=== PATIENT | female | born 1945 | race Caucasian/White ===

== ENCOUNTER → 2016-05-11 | Outpatient (CLI) | payer MEDICARE ==
[2016-05-11 09:33] LABS: Basophils # (A) 0.1 k/uL (0-0.2); Basophils % (A) 1 %; CH 32.8; CHCM 33.8; Eosinophils # (A) 0.1 k/uL (0-0.7); Eosinophils % (A) 2 %; HCT 44.3 % (34.0-46.0); HDW 2.44; HGB 14.6 gm/dL (11.4-16.0); Luc # (Auto) 0.15; Luc % (Auto) 2; Lymphocytes # (A) 1.4 k/uL (1.0-4.8); Lymphocytes % (A) 19 %; MCH 32.1 pg (25.0-35.0); MCHC 32.9 g/dL (31.0-37.0); MCV 97.6 fL (80.0-100.0); Mean Platelet Volume 6.2; Monocytes # (A) 0.4 k/uL (0-1.0); Monocytes % (A) 5 %; Neutrophils # (A) 5.3 k/uL (1.3-7.7); Neutrophils % (A) 72 %; RBC 4.53 m/uL (3.80-5.40); WBC 7.4 k/uL (3.8-10.6); WBC (Perox) 7.27
[2016-05-11 10:02] LABS: ALT 40 U/L (9-52); AST 26 U/L (14-36); Alkaline Phosphatase 41 U/L (38-126); Anion Gap 10 mmol/L; Blood Urea Nitrogen 7 mg/dL (7-17); Calcium 9.7 mg/dL (8.4-10.2); Carbon Dioxide 29 mmol/L (22-30); Chloride 104 mmol/L (98-107); Cholesterol 175 mg/dL (<200); Glucose 105 mg/dL (74-99); HDL Cholesterol 60 mg/dL (40-60); Magnesium 2.1 mg/dL (1.6-2.3); Non-African American GFR(MDRD) >60 (>60 ml/min/1.73 sqM); Potassium 4.6 mmol/L (3.5-5.1); Sodium 143 mmol/L (137-145); Total Bilirubin 0.6 mg/dL (0.2-1.3); Total Protein 7.3 g/dL (6.3-8.2); Triglycerides 132 mg/dL (<150)
--- NOTE | 2016-05-12 10:08 | BD ---
EXAMINATION TYPE: MG DEXA axial skeleton. DATE OF EXAM: 05/11/2016 9:40 AM CLINICAL HISTORY: Height: 64.5 inches Weight: 157 FRAX RISK QUESTIONS: Alcohol (3 or more units per day): no Family History (Parent hip fracture): no Glucocorticoids (More than 3mos): no (Ex: prednisone, prednisolone, methylprednisolone, dexamethasone, and hydrocortisone). History of Fracture in Adulthood: no Secondary Osteoporosis: 1. Type 1 Diabetes: no 2. Hyperthyroidism: no 3. Menopause before 45: no 4. Malnutrition: no 5. Chronic liver disease: no Rheumatoid Arthritis: no Current Tobacco Use: yes RISK FACTORS HISTORY OF: History of Fracture: no Family History of Osteoporosis: no Drink Alcohol: occasionally,socially Active: yes Diet low in dairy products/other sources of calcium: no Postmenopausal woman: yes Take estrogen and/or progesterone medications: not now How long: started about age 49 & used for about 9 years Lost more than 2 inches in height since high school: no Poor Health: no Hyperparathyroidism: no Adrenal Insufficiency: no MEDICATIONS: Prednisone or other steroids: no Thyroid Medications: no Osteoporosis Medications: no Additional Medications: cholesterol meds , calcium Additional History: Breast CA 2004, radiation, took Arimedex for about five years EXAM MEASUREMENTS: Bone mineral densitometry was performed using the [employer] System. Bone mineral density as measured about the Lumbar spine is: ----- L1-L4(G/cm2): 1.422 T Score Values are as follows: ----- L2: 2.3 ----- L3: 2.3 ----- L4: 2.3 ----- L1-L4: 2.0 Bone mineral density has: Decreased -1.1% since study of: 04/12/2013 Bone mineral density about the R hip (g/cm2): 1.032 Bone mineral density about the L hip (g/cm2): 1.009 T Score values are as follows: -----R Neck: 0.0 -----L Neck: -0.2 -----R Intertrochanter: 0.5 -----L Intertrochanter: 0.4 Bone mineral density has: Decreased -4.0% since study of: 04/12/2013 IMPRESSION: Normal (Values between +1 and -1 indicate normal bone mass) Lumbar Spine & Bilateral Hips NOTE: T-SCORE=SD OF THE YOUNG ADULT MEAN.
== END | disposition home or self-care (01) ==
LOC: RADBDWWP 08:46
PROVIDERS: ATTEND Family Medicine
DX: Z00.00 Encounter for general adult medical examination without abnormal findings (principal); F32.9 Major depressive disorder, single episode, unspecified; K76.0 Fatty (change of) liver, not elsewhere classified; K21.9 Gastro-esophageal reflux disease without esophagitis; E78.5 Hyperlipidemia, unspecified; E78.00 Pure hypercholesterolemia, unspecified; I10 Essential (primary) hypertension; Z79.899 Other long term (current) drug therapy
CPT/HCPCS: 36415; 77080; 80053; 80061; 83735; 84443; 85025

== ENCOUNTER → 2017-05-29 | Outpatient (CLI) | payer MEDICARE ==
--- NOTE | 2017-05-31 07:27 | MM ---
Reason for exam: screening (asymptomatic). Last mammogram was performed 1 year and 1 month ago. History: Patient is postmenopausal and has history of breast cancer at age 59. Family history of breast cancer in maternal aunt at age 50. Left Mammotome Panel of the left breast, March 18, 2005. Lumpectomy of the left breast, 2004. Radiation therapy, 2004. Took estrogen for 9 years 4 months beginning at age 49. Took tamoxifen for 5 years 1 month beginning at age 59. Physical Findings: A clinical breast exam by your physician is recommended on an annual basis and results should be correlated with mammographic findings. MG 3D Screening Mammo W/Cad Bilateral CC and MLO view(s) were taken. XCCL view(s) were taken of the left breast. Prior study comparison: April 15, 2016, bilateral MG 3d diag mammo wo cad [facility]. April 01, 2015, bilateral MG 3d diag mammo w/cad [facility]. March 13, 2014, bilateral MG diagnostic mammo w CAD [facility]. The breast tissue is heterogeneously dense. This may lower the sensitivity of mammography. No suspicious abnormality. Post therapy changes on the left. No significant changes when compared with prior studies. ASSESSMENT: Benign, BI-RAD 2 RECOMMENDATION: Follow-up diagnostic mammogram of both breasts in 1 year.
== END | disposition home or self-care (01) ==
LOC: RADMAMWWP 12:33
PROVIDERS: ATTEND Obstetrics & Gynecology
DX: Z12.31 Encounter for screening mammogram for malignant neoplasm of breast (principal)
CPT/HCPCS: 77063; 77067

== ENCOUNTER → 2018-05-09 | Outpatient (CLI) | payer MEDICARE ==
--- NOTE | 2018-05-09 15:41 | CTL ---
EXAMINATION TYPE: CT Low Dose Lung DATE OF EXAM ORDERED: 05/09/2018 HISTORY: Personal history of tobacco abuse. Lung cancer screening. History of breast cancer. CT DLP: 82.[address] CTDI: 2.3 mGy Automated exposure control for dose reduction was used. SCREENING VISIT: Subsequent, third visit. COMPARISON: 04/22/2017 TECHNIQUE: Low dose computed tomography scan was performed through the chest at 1 mm thick sections a nd reconstructed images in the coronal plane at [address] DIAGNOSTIC QUALITY: Satisfactory FINDINGS: LUNG NODULES: Present, detailed below: There is redemonstration of a right apical 4 x 2 mm solid pulmonary nodule on image 31, unchanged fro m the prior. There is a stable 4 x 2 mm right upper lobe pulmonary nodule that is solid in nature on series 4 imag e 119. Just caudal to this on image 127 there is a 3 x 3 mm pulmonary nodule that appears more conspicuous o n today's examination on the prior. This is also solid in nature. There is a 2 mm posterior right apical pulmonary nodule that is solid in nature on image 88 that does not appear to be present on the prior exam. There is a 2 mm left apical solid pulmonary nodule on image 45 that is very subtly visualized on the prior and unchanged. There is a 3 x 2 mm pulmonary nodule on image 114 within the left upper lobe that is retrospectively unchanged from the prior. 1 to 2 mm subpleural left lower lobe pulmonary nodule is solid in nature seen on image 186. This is n ot well appreciated on the prior. LUNGS: COPD: Severity: Moderate Fibrosis: Severity: Similar-appearing minimal right apical Lymph nodes: No enlarged adenopathy Other findings: Redemonstration of subsegmental dependent bibasilar atelectasis. RIGHT PLEURAL SPACE: Effusion: None Calcification: None Thickening: None Pneumothorax: None LEFT PLEURAL SPACE: Effusion: None Calcification: None Thickening: None Pneumothorax: None HEART: Heart Size: Normal Coronary calcification: Mild to moderate Pericardial effusion: None Other: Descending thoracic aorta is upper limits of normal in size measuring 3 x 3 cm. OTHER FINDINGS: Upper abdomen: Small splenule is incidentally noted. Unremarkable unenhanced morphology. Right hemidi aphragm elevation is mild and unchanged. Bony thorax: Moderate multilevel degenerative change of the thoracic spine. Supraclavicular region: No suspicious adenopathy. IMPRESSION: Bilateral sub-5 mm pulmonary nodules, some of which appears stable from the prior exams a nd few of which appear new. Again these correspond to LUNG RADS 2. Annual low dose CT thorax is recom mended for surveillance. FOLLOW UP CT CHEST RECOMMENDATION: [address] LUNG RAD: Lung-Rad 2 Benign Appearance or Behavior
== END ==
LOC: RADCTMAIN 12:12
PROVIDERS: ATTEND Family Medicine
DX: Z12.2 Encounter for screening for malignant neoplasm of respiratory organs (principal); Z87.891 Personal history of nicotine dependence

== ENCOUNTER → 2018-07-09 | Outpatient (CLI) | payer MEDICARE ==
--- NOTE | 2018-07-09 13:38 | MM ---
Reason for exam: additional evaluation requested from prior study. Last mammogram was performed 1 year and 1 month ago. History: Patient is postmenopausal and has history of breast cancer at age 59. Family history of breast cancer in maternal aunt at age 50. Left Mammotome Panel of the left breast, March 18, 2005. Lumpectomy of the left breast, 2004. Radiation therapy, 2004. Took estrogen for 9 years 4 months beginning at age 49. Took tamoxifen for 5 years 1 month beginning at age 59. Physical Findings: Nurse did not find any significant physical abnormalities on exam. MG 3D Diag Mammo W/Cad [facility] Bilateral CC and MLO view(s) were taken. Prior study comparison: May 29, 2017, bilateral MG 3d screening mammo w/cad. April 15, 2016, bilateral MG 3d diag mammo wo cad [facility]. The breast tissue is heterogeneously dense. This may lower the sensitivity of mammography. Benign appearing bilateral calcifications. No suspicious abnormality. Post therapy change. No significant new findings when compared with previous films. These results were verbally communicated with the patient and result sheet given to the patient on 07/09/18. ASSESSMENT: Benign, BI-RAD 2 RECOMMENDATION: Routine screening mammogram of both breasts in 1 year.
--- NOTE | 2018-07-09 14:47 | BD ---
EXAMINATION TYPE: Axial Bone Density DATE OF EXAM: 07/09/2018 COMPARISON: 2017 CLINICAL HISTORY: Personal history of breast cancer. Osteoporosis screening. Height: 5 FT 4 IN Weight: 145 FRAX RISK QUESTIONS: Secondary Osteoporosis: Current Tobacco Use: YES RISK FACTORS HISTORY OF: Surgery to Spine/Hip(right/left)/Wrist (right/left): LT WRIST When: UNSURE 2004 Active: YES Postmenopausal woman: AFTER 45 Take estrogen and/or progesterone medications: UNSURE OF HOW LONG BUT DID USE THEM MEDICATIONS: Additional Medications: GABAPENTIN , Additional History: POOR HISTORIAN EXAM MEASUREMENTS: Bone mineral densitometry was performed using the [employer] System. Bone mineral density as measured about the Lumbar spine is: ----- L1-L4(G/cm2): 1.442 T Score Values are as follows: ----- L2: 2.2 ----- L3: 2.6 ----- L4: 2.6 ----- L1-L4: 2.2 Bone mineral density has: INCREASED 1.4 % since study of: 2017 Bone mineral density about the R hip (g/cm2): 1.017 Bone mineral density about the L hip (g/cm2): 1.014 T Score values are as follows: -----R Neck: -0.2 -----L Neck: -0.2 -----R Total: 0.1 -----L Total: 0.0 Bone mineral density has: DECREASED -3.7 % since study of: 2017 IMPRESSION: Normal (Values between +1 and -1 indicate normal bone mass). Consider repeating this study in 5 year s or sooner if there is some new clinical indication. NOTE: T-SCORE=SD OF THE YOUNG ADULT MEAN.
== END | disposition home or self-care (01) ==
LOC: RADMAMWWP 12:23
PROVIDERS: ATTEND Family Medicine
DX: Z08 Encounter for follow-up examination after completed treatment for malignant neoplasm (principal); M85.80 Other specified disorders of bone density and structure, unspecified site; Z85.3 Personal history of malignant neoplasm of breast
CPT/HCPCS: 77080; 77066; G0279; 77062

== ENCOUNTER → 2019-12-18 | Outpatient (CLI) | payer MEDICARE ==
[2019-12-18 10:54] LABS: ALT 29 U/L (4-34); AST 35 U/L (14-36); African American GFR (CKD) >90 (>60 ml/min/1.73 sqM); Albumin 4.3 g/dL (3.5-5.0); Alkaline Phosphatase 36 U/L (38-126); Anion Gap 5 mmol/L; Bilirubin, Delta 0.2 mg/dL (0.0-0.2); Bilirubin,Unconjugated 0.4 mg/dL (0.0-1.1); Blood Urea Nitrogen 5 mg/dL (7-17); Calcium 9.3 mg/dL (8.4-10.2); Carbon Dioxide 28 mmol/L (22-30); Chloride 100 mmol/L (98-107); Cholesterol 144 mg/dL (<200); Glucose 99 mg/dL (74-99); Non-African American GFR(CKD) 90 (>60 ml/min/1.73 sqM); Potassium 4.5 mmol/L (3.5-5.1); Sodium 133 mmol/L (137-145); Total Bilirubin 0.6 mg/dL (0.2-1.3); Total Protein 6.6 g/dL (6.3-8.2); Triglycerides 60 mg/dL (<150)
[2019-12-18 11:10] LABS: T4, Free (Free Thyroxine) 1.04 ng/dL (0.78-2.19)
[2019-12-18 11:12] LABS: Basophils # (A) 0.1 k/uL (0-0.2); Basophils % (A) 1 %; Eosinophils # (A) 0.1 k/uL (0-0.7); Eosinophils % (A) 1 %; HCT 41.1 % (34.0-46.0); HGB 13.6 gm/dL (11.4-16.0); Lymphocytes % (A) 14 %; MCH 32.1 pg (25.0-35.0); MCHC 33.2 g/dL (31.0-37.0); MCV 96.8 fL (80.0-100.0); Mean Platelet Volume 6.8; Monocytes # (A) 0.3 k/uL (0-1.0); Monocytes % (A) 5 %; Neutrophils # (A) 5.7 k/uL (1.3-7.7); Neutrophils % (A) 79 %; Platelet Count 229 k/uL (150-450); RBC 4.24 m/uL (3.80-5.40); RDW 12.4 % (11.5-15.5); WBC 7.3 k/uL (3.8-10.6)
[2019-12-18 14:12] LABS: HDL Cholesterol 63 mg/dL (40-60); LDL Cholesterol,Calculated 69 mg/dL (0-99)
--- NOTE | 2019-12-19 12:21 | MM ---
Reason for exam: screening (asymptomatic). Last mammogram was performed 1 year and 5 months ago. History: Patient is postmenopausal and has history of breast cancer at age 59. Family history of breast cancer in maternal aunt at age 50. Left Mammotome Panel of the left breast, March 18, 2005. Lumpectomy of the left breast, 2004. Radiation therapy, 2004. Took estrogen for 9 years 4 months beginning at age 49. Took tamoxifen for 5 years 1 month beginning at age 59. Physical Findings: A clinical breast exam by your physician is recommended on an annual basis and results should be correlated with mammographic findings. MG 3D Screening Mammo W/Cad Bilateral CC and MLO view(s) were taken. Prior study comparison: July 09, 2018, bilateral MG 3d diag mammo w/cad [facility]. May 29, 2017, bilateral MG 3d screening mammo w/cad. The breast tissue is heterogeneously dense. This may lower the sensitivity of mammography. Benign appearing calcifications in the left breast. There is chronic nodularity in the right breast. Post operative change on the left, stable. ASSESSMENT: Benign, BI-RAD 2 RECOMMENDATION: Routine screening mammogram of both breasts in 1 year.
== END | disposition home or self-care (01) ==
LOC: RADMAMWWP 08:32
PROVIDERS: ATTEND Family Medicine
DX: Z12.31 Encounter for screening mammogram for malignant neoplasm of breast (principal); Z00.01 Encounter for general adult medical examination with abnormal findings; Z13.220 Encounter for screening for lipoid disorders; Z13.83 Encounter for screening for respiratory disorder NEC; J44.9 Chronic obstructive pulmonary disease, unspecified; F17.210 Nicotine dependence, cigarettes, uncomplicated
CPT/HCPCS: 77063; 77067; 80053; 80061; 82248; 84439; 84443; 85025

== ENCOUNTER 2021-06-08 16:31 | Inpatient (IN) | payer MEDICARE ==
[2021-06-08] MEDS ORDERED: MORPHINE SULFATE 4 MG/ML SYRINGE IV STA (18:42)
[2021-06-08] MEDS ORDERED: SODIUM CHLORIDE 0.9% 1,000 ML IV STA (18:42)
[2021-06-08] MEDS ORDERED: ONDANSETRON 4 MG/2 ML VIAL IVP STA ×2 (18:42→20:27)
[2021-06-08] MEDS ORDERED: FAMOTIDINE 20 MG/2 ML VIAL IV STA (18:42)
--- NOTE | 2021-06-08 18:44 | ED ---
General Adult HPI - General Chief complaint: Nausea/Vomiting/Diarrhea Stated complaint: Nausea/Vomiting Time Seen by Provider: 06/08/21 18:36 Source: patient, family, RN notes reviewed Mode of arrival: wheelchair Limitations: no limitations - History of Present Illness Initial comments: Patient is a pleasant 75-year-old female presenting to the emergency department with nausea vomiting. Onset of symptoms was for 5 days ago. Patient did have some teeth pulled. Patient is not having problems with her teeth. Patient does have some mild abdominal discomfort. Patient has had very limited oral intake since that time. Patient still feels nauseated. No diarrhea. Patient did have a visit with her doctor with x-rays. Patient also was seen at a different facility and given IV fluids. - Related Data Home Medications Medication Instructions Recorded Confirmed Cephalexin [Keflex] 500 mg PO Q12HR 06/08/21 06/08/21 Cetirizine HCl [Zyrtec] 10 mg PO DAILY 06/08/21 06/08/21 Gabapentin [Neurontin] 400 mg PO HS 06/08/21 06/08/21 HYDROcodone/IBUPROFEN 7.5-200 1 tab PO TID PRN 06/08/21 06/08/21 [Vicoprofen 7.5-200 mg] Pravastatin Sodium 80 mg PO DAILY 06/08/21 06/08/21 Prochlorperazine [Compazine] 5 mg PO TID PRN 06/08/21 06/08/21 Allergies Allergy/AdvReac Type Severity Reaction Status Date / Time Penicillins Allergy Unknown Verified 06/08/21 19:36 Review of Systems ROS Statement: Those systems with pertinent positive or pertinent negative responses have been documented in the HPI. ROS Other: All systems not noted in ROS Statement are negative. Constitutional: Denies: fever Eyes: Denies: eye pain ENT: Denies: ear pain Respiratory: Denies: cough, dyspnea Cardiovascular: Denies: chest pain Endocrine: Denies: fatigue Gastrointestinal: Reports: as per HPI, abdominal pain, nausea, vomiting Genitourinary: Denies: dysuria Musculoskeletal: Denies: back pain Skin: Denies: rash Neurological: Denies: weakness Past Medical History Past Medical History: No Reported History History of Any Multi-Drug Resistant Organisms: None Reported Past Surgical History: Breast Surgery Past Psychological History: No Psychological Hx Reported Smoking Status: Current every day smoker Past Alcohol Use History: Rare Past Drug Use History: None Reported General Exam Limitations: no limitations General appearance: alert, in no apparent distress Head exam: Present: normocephalic Eye exam: Present: normal appearance Neck exam: Present: normal inspection Respiratory exam: Present: normal lung sounds bilaterally Cardiovascular Exam: Present: regular rate, normal rhythm Expanded Peripheral pulses: 2+: Posterior Tibialis (R), Posterior Tibialis (L), Dorsalis Pedis (R), Dorsalis Pedis (L) GI/Abdominal exam: Present: soft, normal bowel sounds. Absent: distended, tenderness, guarding, rebound, rigid, pulsatile mass Extremities exam: Present: normal inspection. Absent: pedal edema, calf tenderness Neurological exam: Present: alert Psychiatric exam: Present: normal affect, normal mood Skin exam: Present: normal color Course Vital Signs 06/08/21 16:49 Temperature 97.9 F Pulse Rate 92 Respiratory 20 Rate Blood Pressure 156/91 O2 Sat by Pulse 96 Oximetry Medical Decision Making - Medical Decision Making Patient reevaluated and still complaining of abdominal discomfort and nausea. Further medications ordered. Case discussed with Dr. Asencio, who will admit his patient. He is familiar with her. Computed tomography scan has been ordered and is pending. Patient has indeterminate troponin. Cardiology will be consult at. - Lab Data Result diagrams: 06/08/21 19:36 06/08/21 19:36 Lab Results 06/08/21 06/08/21 06/08/21 Range/Units 19:36 19:36 19:36 WBC 7.1 (3.8-10.6) k/uL RBC 4.44 (3.80-5.40) m/uL Hgb 14.7 (11.4-16.0) gm/dL Hct 42.3 (34.0-46.0) % MCV 95.4 (80.0-100.0) fL MCH 33.0 (25.0-35.0) pg MCHC 34.6 (31.0-37.0) g/dL RDW 12.8 (11.5-15.5) % Plt Count 289 (150-450) k/uL MPV 6.8 Neutrophils % 81 % Lymphocytes % 9 % Monocytes % 8 % Eosinophils % 1 % Basophils % 0 % Neutrophils # 5.7 (1.3-7.7) k/uL Lymphocytes # 0.6 L (1.0-4.8) k/uL Monocytes # 0.6 (0-1.0) k/uL Eosinophils # 0.1 (0-0.7) k/uL Basophils # 0.0 (0-0.2) k/uL Sodium 128 L (137-145) mmol/L Potassium 3.6 (3.5-5.1) mmol/L Chloride 87 L (98-107) mmol/L Carbon Dioxide 30 (22-30) mmol/L Anion Gap 11 mmol/L BUN 24 H (7-17) mg/dL Creatinine 0.82 (0.52-1.04) mg/dL Est GFR (CKD-EPI)AfAm 81 (>60 ml/min/1.73 sqM) Est GFR (CKD-EPI)NonAf 70 (>60 ml/min/1.73 sqM) Glucose 96 (74-99) mg/dL Calcium 9.5 (8.4-10.2) mg/dL Total Bilirubin 0.9 (0.2-1.3) mg/dL AST 50 H (14-36) U/L ALT 27 (4-34) U/L Alkaline Phosphatase 44 (38-126) U/L Troponin I 0.097 H* (0.000-0.034) ng/mL Total Protein 6.8 (6.3-8.2) g/dL Albumin 3.9 (3.5-5.0) g/dL Amylase 52 (30-110) U/L Lipase 311 H (23-300) U/L Disposition Clinical Impression: Abdominal pain, Vomiting Disposition: ADMITTED IP TO THIS HOSP Is patient prescribed a controlled substance at d/c from ED?: No Referrals: Anson Sam MD [Primary Care Provider] - 1-2 days Decision Time: 20:36
[2021-06-08 20:06] LABS: INR 0.9 (<1.2); Partial Thromboplastin Time 23.9 sec (22.0-30.0); Prothrombin Time 9.8 sec (9.0-12.0)
[2021-06-08 20:07] LABS: Basophils % (A) 0 %; Eosinophils # (A) 0.1 k/uL (0-0.7); Eosinophils % (A) 1 %; HCT 42.3 % (34.0-46.0); HGB 14.7 gm/dL (11.4-16.0); Lymphocytes # (A) 0.6 k/uL (1.0-4.8); Lymphocytes % (A) 9 %; MCHC 34.6 g/dL (31.0-37.0); MCV 95.4 fL (80.0-100.0); Mean Platelet Volume 6.8; Monocytes # (A) 0.6 k/uL (0-1.0); Monocytes % (A) 8 %; Neutrophils # (A) 5.7 k/uL (1.3-7.7); Neutrophils % (A) 81 %; Platelet Count 289 k/uL (150-450); RBC 4.44 m/uL (3.80-5.40); RDW 12.8 % (11.5-15.5); WBC 7.1 k/uL (3.8-10.6)
[2021-06-08 20:16] LABS: Albumin 3.9 g/dL (3.5-5.0); Calcium 9.5 mg/dL (8.4-10.2); Potassium 3.6 mmol/L (3.5-5.1); Total Bilirubin 0.9 mg/dL (0.2-1.3); Total Protein 6.8 g/dL (6.3-8.2)
[2021-06-08] MEDS ORDERED: MORPHINE SULFATE 4 MG/ML SYRINGE IVP STA (20:27)
[2021-06-08] MEDS ORDERED: NALOXONE 0.4 MG/ML 1 ML VIAL IV PRN (20:36)
[2021-06-08] MEDS ORDERED: ONDANSETRON 4 MG/2 ML VIAL IVP PRN (20:36)
[2021-06-08] MEDS: SODIUM CHLORIDE 0.9% 1,000 ML IV SCH (21:00)
--- NOTE | 2021-06-08 21:21 | CT ---
EXAMINATION TYPE: CT abdomen pelvis w con DATE OF EXAM: 06/08/2021 COMPARISON: 10/15/2012 HISTORY: epigastric pain and vomiting CT DLP: 662.3 mGycm Automated exposure control for dose reduction was used. CONTRAST: Performed with IV Contrast, patient injected with 100 mL of Isovue 300. Images obtained from the diaphragm to the floor the pelvis with IV contrast. There is multiple variable-sized hypodense areas throughout the liver that measure up to 4 cm. Heart size is normal. There is no pericardial effusion. Lung bases appear clear of consolidation. Spleen is intact. The stomach is intact. There are pancreatic vascular calcifications. There is no evidence of pancreatic mass. There is no adrenal mass. Kidneys show satisfactory contrast opacification. There is no hydronephrosi s. Ureters are not dilated. There is no retroperitoneal adenopathy. Abdominal aorta is atheromatous. Bladder distends smoothly. There is no inguinal hernia. There is no free fluid in the pelvis. There a re multiple dilated fluid-filled small bowel loops in the midabdomen. Small bowel measures up to 3.5 cm. Proximal ileum appears normal. There is no evidence of a pelvic mass. Large bowel appears normal. Small bowel transition point not identified. The lumbar vertebra have normal alignment. There is no compression fracture. Bony pelvis is intact. T he hip joints are intact. IMPRESSION: Dilated small bowel with fluid suggestive of mechanical small bowel obstruction. Transition point not identified. Obstruction appears new compared to old exam. Multiple hypodense liver lesions suggestive of metastatic disease. This appears new compared to old e xam.
[2021-06-09 03:51] LABS: Appearance,Urine Clear (Clear); Bacteria,Urine Rare /hpf; Bilirubin,Urine Negative (Negative); Blood,Urine Small (Negative); Color,Urine Yellow; Glucose,Urine (UA) Negative (Negative); Ketones,Urine 2+ (Negative); Leukocyte Esterase,Urine Small (Negative); Nitrite,Urine Negative (Negative); PH, Urine 6.5 (5.0-8.0); Protein,Urine Trace (Negative); RBC,Urine 8 /hpf (0-5); Squamous Epithelial Cell,Urine 12 /hpf (0-4); WBC,Urine 3 /hpf (0-5)
[2021-06-09 03:59] LABS: Specific Gravity,Urine >1.050 (1.001-1.035)
[2021-06-09] MEDS: SODIUM CHLORIDE 0.9% 1,000 ML IV SCH ×3 (07:33→22:54)
[2021-06-09] MEDS: PANTOPRAZOLE 40 MG/10 ML VIAL IV SCH (08:19)
[2021-06-09] MEDS: MORPHINE SULFATE 4 MG/ML SYRINGE IV PRN ×2 (08:22→17:16)
[2021-06-09 08:48] LABS: Calcium 8.5 mg/dL (8.4-10.2); Potassium 3.4 mmol/L (3.5-5.1)
[2021-06-09] MEDS ORDERED: Potassium Replacement Protocol 1 EACH MISC MISCELLANE PRN ×2 (10:15→18:48)
--- NOTE | 2021-06-09 11:08 | P.CRDCN ---
History of Present Illness Consult date: 06/09/21 History of present illness: HISTORY OF PRESENT ILLNESS: This is a 75 year old female with a past medical history significant for hyperlipidemia, nicotine dependence of 1 pack per day, and occasional alcohol use. 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 We have been asked to see the patient in consultation for abnormal troponins. Patient examined at the bedside. Patient states she had 3 teeth pulled last Monday and since then she has not been able to eat or drink. Patient had a computed tomography scan performed that was suggestive of a small bowel obstruction. The patient was given Zofran, Pepcid, and morphine. The patient states this morning she is feeling much better. She denies abdominal pain or nausea. The patient was found to have an abnormal troponin of 0.09. Patient denies any chest pain or pressure. She denies any shortness of breath. Patient states she had a stress test performed many years ago that was normal. She denies ever having a cardiac catheterization. EKG reveals sinus mechanism with no signs of acute ischemia CT abdomen and pelvis dilated small bowel with fluid suggestive of mechanical small bowel obstruction. Transition point not identified. Obstruction appears new compared to old exam. Multiple hypodense liver lesions suggestive of metastatic disease. This appears new compared to old exam. Laboratory data: WBC 7.1. Hemoglobin 14.7. Platelet count 289. Sodium 128. Potassium 3.6. BUN 24. Creatinine 0.84. AST 50. ALT 27. Troponin 0.097. Lipase 311. Current home cardiac medications include pravastatin 80 mg daily REVIEW OF SYSTEMS: At the time of my exam: CONSTITUTIONAL: Denies fever or chills. HEENT: Denies blurred vision, vision changes, or eye pain. Denies hemoptysis CARDIOVASCULAR: Denies chest pain. Denies orthopnea. Denies PND. Denies palpitations RESPIRATORY: Denies shortness of breath. GASTROINTESTINAL: Denies abdominal pain. Denies nausea or vomiting. HEMATOLOGIC: Denies bleeding disorders. GENITOURINARY: Denies any blood in urine. SKIN: Denies pruitis. Denies rash. PHYSICAL EXAM: VITAL SIGNS: Reviewed. GENERAL: Well-developed in no acute distress. HEENT: Head is normocephalic. Pupils are equal, round. Sclerae anicteric. Mucous membranes of the mouth are moist. Neck supple. No JVD or thyromegaly LUNGS: Respirations even and unlabored. Lungs essentially clear to auscultation bilaterally. HEART: Regular rate and rhythm. S1 and S2 heard. Systolic murmur noted. ABDOMEN: Soft. Nondistended. Nontender. EXTREMITIES: Normal range of motion. No clubbing or cyanosis. Peripheral pulses intact. No lower extremity edema NEUROLOGIC: Awake and alert. Oriented x 3. ASSESSMENT: Abdominal pain, nausea, vomiting Abnormal troponin, of unclear etiology Hyperlipidemia Small bowel obstruction Multiple liver lesions suspicious for metastatic disease, per CT scan Elevated lipase Hyponatremia Recent tooth extraction 3 teeth Nicotine dependence Occasional alcohol use PLAN: Obtain 2D echo to assess cardiac structure and function Obtain 2 additional troponin levels Continue telemetry monitoring Surgery consulted. Await evaluation. Patient will require workup for liver lesions seen on CT scan. Will defer to primary medicine Obtain CXR Further recommendations pending patient course Nurse practitioner note has been reviewed by physician. Signing provider agrees with the documented findings, assessment, and plan of care. Past Medical History Past Medical History: No Reported History History of Any Multi-Drug Resistant Organisms: None Reported Past Surgical History: Breast Surgery Past Psychological History: No Psychological Hx Reported Smoking Status: Current every day smoker Past Alcohol Use History: Rare Past Drug Use History: None Reported - Past Family History Father Family Medical History: No Reported History Additional Family Medical History / Comment(s): Father was healthy Mother Family Medical History: Cancer Additional Family Medical History / Comment(s): Colon cancer Medications and Allergies Home Medications Medication Instructions Recorded Confirmed Type Cephalexin [Keflex] 500 mg PO Q12HR 06/08/21 06/08/21 History Cetirizine HCl [Zyrtec] 10 mg PO DAILY 06/08/21 06/08/21 History Gabapentin [Neurontin] 400 mg PO HS 06/08/21 06/08/21 History HYDROcodone/IBUPROFEN 7.5-200 1 tab PO TID PRN 06/08/21 06/08/21 History [Vicoprofen 7.5-200 mg] Pravastatin Sodium 80 mg PO DAILY 06/08/21 06/08/21 History Prochlorperazine [Compazine] 5 mg PO TID PRN 06/08/21 06/08/21 History Allergies Allergy/AdvReac Type Severity Reaction Status Date / Time Penicillins Allergy Unknown Verified 06/08/21 19:36 Physical Exam Vitals: Vital Signs Temp Pulse Pulse Resp BP BP Pulse Ox 06/09/21 02:39 94 L 06/09/21 02:38 98.8 F 92 18 144/71 87 L 06/09/21 01:51 88 18 06/08/21 23:51 88 18 06/08/21 22:57 98.6 F 88 18 148/80 92 L 06/08/21 22:06 88 18 182/91 95 06/08/21 16:49 97.9 F 92 20 156/91 96 Intake and Output 06/08/21 06/08/21 06/09/21 14:59 22:59 06:59 Intake Total 990 Balance 990 Intake: IV 990 Sodium Chloride 0.9% 1, 990 000 ml @ 110 mls/hr IV . Q9H6M [facility] Rx#:[id number] Other: # Voids 1 Weight 58.967 kg Results 06/08/21 19:36 06/09/21 08:00 Cardiac Enzymes 06/08/21 06/08/21 Range/Units 19:36 19:36 AST 50 H (14-36) U/L Troponin I 0.097 H* (0.000-0.034) ng/mL Coagulation 06/08/21 Range/Units 19:36 PT 9.8 (9.0-12.0) sec APTT 23.9 (22.0-30.0) sec CBC 06/08/21 Range/Units 19:36 WBC 7.1 (3.8-10.6) k/uL RBC 4.44 (3.80-5.40) m/uL Hgb 14.7 (11.4-16.0) gm/dL Hct 42.3 (34.0-46.0) % Plt Count 289 (150-450) k/uL Comprehensive Metabolic Panel 06/08/21 Range/Units 19:36 Sodium 128 L (137-145) mmol/L Potassium 3.6 (3.5-5.1) mmol/L Chloride 87 L (98-107) mmol/L Carbon Dioxide 30 (22-30) mmol/L BUN 24 H (7-17) mg/dL Creatinine 0.82 (0.52-1.04) mg/dL Glucose 96 (74-99) mg/dL Calcium 9.5 (8.4-10.2) mg/dL AST 50 H (14-36) U/L ALT 27 (4-34) U/L Alkaline Phosphatase 44 (38-126) U/L Total Protein 6.8 (6.3-8.2) g/dL Albumin 3.9 (3.5-5.0) g/dL Current Medications Generic Name Dose Route Start Last Admin Trade Name Freq PRN Reason Stop Dose Admin Sodium Chloride 1,000 mls @ 110 mls/hr 06/08/21 20:45 06/08/21 21:00 Saline 0.9% IV 110 mls/hr .Q9H6M BRENDA Administration Morphine Sulfate 4 mg 06/08/21 20:36 Morphine Sulfate 4 Mg/Ml Syringe IV Q4HR PRN Severe Pain Naloxone HCl 0.2 mg 06/08/21 20:36 Naloxone 0.4 Mg/Ml 1 Ml Vial IV Q2M PRN Opioid Reversal Ondansetron HCl 4 mg 06/08/21 20:36 Ondansetron 4 Mg/2 Ml Vial IVP Q8HR PRN Nausea And Vomiting Pantoprazole Sodium 40 mg 06/09/21 09:00 Pantoprazole 40 Mg/10 Ml Vial IV DAILY BRENDA Intake and Output 06/08/21 06/08/21 06/09/21 14:59 22:59 06:59 Intake Total 990 Balance 990 Intake: IV 990 Sodium Chloride 0.9% 1, 990 000 ml @ 110 mls/hr IV . Q9H6M BRENDA Rx#:[id number] Other: # Voids 1 Weight 58.967 kg Patient Weight 06/09/21 06:59 Weight 58.967 kg 06/08/21 19:36 06/08/21 19:36
[2021-06-09 11:42] VITALS: BMI 22.3
[2021-06-09] MEDS ORDERED: HEPARIN SODIUM 1,000 UN/ML (10ML VL) IV PRN (12:27)
[2021-06-09] MEDS ORDERED: HEPARIN SODIUM 1,000 UN/ML (10ML VL) IV ONE (12:27)
[2021-06-09] MEDS ORDERED: HEPARIN SOD,PORK IN 0.45% NACL 25,000 UNIT in 0.45% NACL 1 250ML.BAG IV SCH (12:45)
[2021-06-09 13:00] LABS: Basophils % (A) 1 %; Eosinophils # (A) 0.2 k/uL (0-0.7); Eosinophils % (A) 2 %; HCT 38.1 % (34.0-46.0); Lymphocytes # (A) 0.8 k/uL (1.0-4.8); Lymphocytes % (A) 12 %; MCH 33.2 pg (25.0-35.0); MCHC 34.1 g/dL (31.0-37.0); MCV 97.2 fL (80.0-100.0); Mean Platelet Volume 6.9; Monocytes # (A) 0.5 k/uL (0-1.0); Monocytes % (A) 7 %; Neutrophils # (A) 5.1 k/uL (1.3-7.7); Neutrophils % (A) 76 %; Platelet Count 250 k/uL (150-450); RBC 3.92 m/uL (3.80-5.40); RDW 12.3 % (11.5-15.5); WBC 6.7 k/uL (3.8-10.6)
--- NOTE | 2021-06-09 13:20 | XR ---
EXAMINATION TYPE: XR chest 2V DATE OF EXAM: 06/09/2021 COMPARISON: Chest x-ray 10/17/2012, CT chest 05/09/2018 HISTORY: Abnormal CT, abdominal pain, liver masses, bowel obstruction TECHNIQUE: Frontal and lateral views of the chest are obtained. FINDINGS: Patient is rotated. Blunting the posterior costophrenic angle suggests possible small effus ion. Right hilum appears prominently, volume loss is suspected in the right hemithorax, right hemidia phragm is elevated. No evident pneumothorax. Aorta is dense. Heart is not enlarged. Surgical clips ar e present in the left breast. Degenerative changes are noted within the shoulders. There is underlyin g emphysema. IMPRESSION: Difficult to exclude right hilar mass. Consider chest CT.
[2021-06-09 13:28] LABS: INR 0.9 (<1.2); Partial Thromboplastin Time 24.5 sec (22.0-30.0); Prothrombin Time 10.1 sec (9.0-12.0)
[2021-06-09] MEDS ORDERED: Magnesium Replacement Protocol 1 EACH MISC MISCELLANE PRN (13:42)
--- NOTE | 2021-06-09 13:47 | P.HPIM ---
History of Present Illness H&P Date: 06/09/21 Chief Complaint: Abdominal pain, nausea with dark brown emesis This is a pleasant 75-year-old female, Covid vaccinated X 2, hard of hearing, left breast cancer with lumpectomy/radiation, arthritis with past medical history of nicotine dependence-has smoked since she was a teen and is currently at a half pack per day, hiatal hernia presented to the ER with mid epigastric abdominal pain, constipation, nausea, vomiting of dk. brown emesis. Patient reports on last Monday she had [address] Ramirez secondary to gingivitis. Postprocedure she found it very difficult to eat and drink. Sodium 128 to 1:30, BUN ranging from 11-7, creatinine 0.82. Reports she is not passing any flatus ,with no bowel movement since her teeth extraction. Tested negative for Coronavirus. Hypoxic, O2 sat 87% on room air currently high 90s to 100% on 2 L nasal cannula. Denies any chest pain, chest pressure, or shortness of breath. Troponin 0.097, 0.151. Evaluated by cardiology, echo pending. EKG reporting normal sinus rhythm. Chest x-ray pending. CT of abdomen and pelvis reporting new multiple hypodense liver lesions suggestive of metastatic disease measuring up to 4 cm, will require further monitoring/workup outpatient, dilated small bowel with fluid suggestive of new mechanical small bowel obstruction, transition point not identified. LFTs within normal limits with the exception of AST mildly elevated ,50. Lipase 311. Afebrile, normal WBC. UA Negative. Hemoglobin 14.7, platelets 289, PT 9.8, INR 0.9. Received IV fluids, antiemetics, morphine and PPI, feeling better. Review of Systems ROS Statement: Those systems with pertinent positive or pertinent negative responses have been documented in the HPI. ROS Other: All systems not noted in ROS Statement are negative. Past Medical History Past Medical History: No Reported History Additional Past Medical History / Comment(s): L breast cancer with lumpectomy/radiation, arthritis bilateral hands, benign colon polyps, hiatal hernia, bilateral [place]/tinnitis, sinus problems. History of Any Multi-Drug Resistant Organisms: None Reported Past Surgical History: Breast Surgery Additional Past Surgical History / Comment(s): L breast biopsy/ lumpectomy, colonoscpopy/polypectomy, L wrist carpal tunnel release, vaginal lesion removed Past Anesthesia/Blood Transfusion Reactions: No Reported Reaction Past Psychological History: No Psychological Hx Reported Smoking Status: Current every day smoker Past Alcohol Use History: Rare Past Drug Use History: None Reported - Past Family History Father Family Medical History: No Reported History Additional Family Medical History / Comment(s): Father was healthy Mother Family Medical History: Cancer Additional Family Medical History / Comment(s): Colon cancer Medications and Allergies Home Medications Medication Instructions Recorded Confirmed Type Cephalexin [Keflex] 500 mg PO Q12HR 06/08/21 06/08/21 History Cetirizine HCl [Zyrtec] 10 mg PO DAILY 06/08/21 06/08/21 History Gabapentin [Neurontin] 400 mg PO HS 06/08/21 06/08/21 History HYDROcodone/IBUPROFEN 7.5-200 1 tab PO TID PRN 06/08/21 06/08/21 History [Vicoprofen 7.5-200 mg] Pravastatin Sodium 80 mg PO DAILY 06/08/21 06/08/21 History Prochlorperazine [Compazine] 5 mg PO TID PRN 06/08/21 06/08/21 History Allergies Allergy/AdvReac Type Severity Reaction Status Date / Time Penicillins Allergy Unknown Verified 06/08/21 19:36 Physical Exam Vitals: Vital Signs Temp Pulse Pulse Resp BP BP Pulse Ox 06/09/21 08:00 97.9 F 78 16 157/66 100 06/09/21 02:39 94 L 06/09/21 02:38 98.8 F 92 18 144/71 87 L 06/09/21 01:51 88 18 06/08/21 23:51 88 18 06/08/21 22:57 98.6 F 88 18 148/80 92 L 06/08/21 22:06 88 18 182/91 95 06/08/21 16:49 97.9 F 92 20 156/91 96 Intake and Output 06/08/21 06/09/21 06/09/21 22:59 06:59 14:59 Intake Total 990 Balance 990 Intake: IV 990 Sodium Chloride 0.9% 1, 990 000 ml @ 110 mls/hr IV . Q9H6M [facility] Rx#:[id number] Other: # Voids 1 Weight 58.967 kg 58.967 kg PHYSICAL EXAM: VITAL SIGNS: [As above] GENERAL: Sitting up on stretcher, smiling, very hard of hearing HEENT: Conjunctivae normal. eyes normal. 3 teeth recently extracted. NECK: No JVD. No thyroid enlargement. No LNs CARDIOVASCULAR: S1, S2 regular. Systolic murmur RESPIRATION: Breath sounds diminished in the bases. No rhonchi or crackles. No bronchial breathing. ABDOMEN: Soft, nondistended, mid epigastric tenderness ,No guarding. no masses palpable. No ascites, No hepatosplenomegaly.Bowel sounds heard. LEGS: No edema. no swelling PSYCHIATRY: Alert and oriented X3, mood and affect normal. NERVOUS SYSTEM: Cranial N 2-12 grossly normal. Moves all 4 limbs. Diffuse weakness ,No focal deficits. Strength and sensation grossly intact. Skin: Warm and dry, no rash Results CBC & Chem 7: 06/08/21 19:36 06/09/21 08:00 Labs: Abnormal Lab Results - Last 24 Hours (Table) 06/08/21 06/08/21 06/08/21 Range/Units 19:36 19:36 19:36 Lymphocytes # 0.6 L (1.0-4.8) k/uL Sodium 128 L (137-145) mmol/L Potassium (3.5-5.1) mmol/L Chloride 87 L (98-107) mmol/L BUN 24 H (7-17) mg/dL AST 50 H (14-36) U/L Troponin I 0.097 H* (0.000-0.034) ng/mL Lipase 311 H (23-300) U/L Ur Specific [place] (1.001-1.035) Urine Protein (Negative) Urine Ketones (Negative) Urine Blood (Negative) Ur Leukocyte Esterase (Negative) Urine RBC (0-5) /hpf Ur Squamous Epith Cells (0-4) /hpf Urine Bacteria (None) /hpf 06/09/21 06/09/21 06/09/21 Range/Units 02:59 08:00 08:00 Lymphocytes # (1.0-4.8) k/uL Sodium 130 L (137-145) mmol/L Potassium 3.4 L (3.5-5.1) mmol/L Chloride (98-107) mmol/L BUN 19 H (7-17) mg/dL AST (14-36) U/L Troponin I 0.151 H* (0.000-0.034) ng/mL Lipase (23-300) U/L Ur Specific [place] >1.050 H (1.001-1.035) Urine Protein Trace H (Negative) Urine Ketones 2+ H (Negative) Urine Blood Small H (Negative) Ur Leukocyte Esterase Small H (Negative) Urine RBC 8 H (0-5) /hpf Ur Squamous Epith Cells 12 H (0-4) /hpf Urine Bacteria Rare H (None) /hpf Thrombosis Risk Factor Assmnt - Choose All That Apply Any of the Below Risk Factors Present?: Yes Other Risk Factors: Yes Each Risk Factor Represents 2 Points: Malignancy Each Risk Factor Represents 3 Points: Age 75 years or older Other congenital or acquired thrombophilia - If yes, enter type in comment: No Thrombosis Risk Factor Assessment Total Risk Factor Score: 5 Thrombosis Risk Factor Assessment Level: High Risk Assessment and Plan Assessment: Mechanical ileus, in a patient with 3 teeth extracted 5 days ago, with Dr. Ramirez- oral surgeon; minimal oral intake post procedure, on antibiotics, NSAIDs and opioids, with nausea, dark brown emesis and mid epigastric pain. Reports no flatus, no bowel movement 4-[address] reports dilated small bowel with fluid suggestive of new mechanical small bowel obstruction, transition point not identified. Mildly elevated lipase Multiple hypodense liver lesions suggestive of metastatic disease To [address], in a patient with history of left breast CA with lumpectomy, radiation ;further workup, monitoring outpatient Hypovolemic hyponatremia secondary to #1 Hypokalemia Elevated troponins, without chest pain reported, echo pending. Cardiology following Nicotine dependence Occasional alcohol use Arthritis Plan: Continue on current medication regime ,monitoring and symptomatic treatment. IV fluid hydration, bowel rest-ice chips with sips of water, PPI, anti-emetics. Potassium replacement protocol ordered, magnesium level ordered and pending. Surgery consult in place, recommendations pending. Evaluated by cardiology, echo pending. Anticoagulated on heparin drip as per cardiology. Chest x-ray pending. The impression and plan of care has been dictated as directed. : I performed a history and examination of this patient, discussed the same with the dictator. I agree with the dictator's note ,documented as a scribe. Any additional findings or plans will be noted.
[2021-06-09] MEDS: NICOTINE 14MG/24HR PATCH TRANSDERM SCH (16:11)
[2021-06-09] MEDS: METOPROLOL TARTRATE 25 MG TAB PO SCH (20:33)
[2021-06-09] MEDS: POTASSIUM CHLORIDE ER 20 MEQ TAB.ER PO SCH ×2 (20:33→22:54)
[2021-06-09 20:35] LABS: Chol/HDL Ratio 2.14 Ratio; LDL Cholesterol,Calculated 13.8 mg/dL (0.0-131.0)
[2021-06-10] MEDS: ONDANSETRON 4 MG/2 ML VIAL IVP PRN (02:10)
[2021-06-10] MEDS: MORPHINE SULFATE 4 MG/ML SYRINGE IV PRN ×4 (05:22→21:06)
[2021-06-10 07:24] LABS: Basophils # (A) 0.1 k/uL (0-0.2); Basophils % (A) 1 %; Eosinophils # (A) 0.2 k/uL (0-0.7); Eosinophils % (A) 2 %; HCT 38.7 % (34.0-46.0); HGB 13.1 gm/dL (11.4-16.0); Lymphocytes # (A) 0.8 k/uL (1.0-4.8); Lymphocytes % (A) 8 %; MCH 32.9 pg (25.0-35.0); MCHC 33.8 g/dL (31.0-37.0); MCV 97.6 fL (80.0-100.0); Mean Platelet Volume 6.9; Monocytes # (A) 0.7 k/uL (0-1.0); Monocytes % (A) 6 %; Neutrophils # (A) 8.8 k/uL (1.3-7.7); Neutrophils % (A) 82 %; Platelet Count 278 k/uL (150-450); RBC 3.96 m/uL (3.80-5.40); RDW 12.3 % (11.5-15.5); WBC 10.6 k/uL (3.8-10.6)
[2021-06-10 08:00] LABS: INR 0.9 (<1.2); Partial Thromboplastin Time 48.9 sec (22.0-30.0); Prothrombin Time 10.4 sec (9.0-12.0)
[2021-06-10 08:01] LABS: Calcium 8.4 mg/dL (8.4-10.2); Potassium 3.6 mmol/L (3.5-5.1)
--- NOTE | 2021-06-10 08:59 | ECHOF ---
Referral Reason:LV function, abnormal troponin MEASUREMENTS -------- HEIGHT: 162.6 cm WEIGHT: 59.0 kg BP: RVIDd: 2.9 cm (< 3.3) IVSd: 0.9 cm (0.6 - 1.1) LVIDd: 4.7 cm (3.9 - 5.3) LVPWd: 1.2 cm (0.6 - 1.1) IVSs: 1.4 cm LVIDs: 3.2 cm LVPWs: 1.6 cm LA Diam: 3.2 cm (2.7 - 3.8) LAESV Index (A-L): 29.46 ml/m Ao Diam: 2.8 cm (2.0 - 3.7) AV Cusp: 1.7 cm (1.5 - 2.6) MV EXCURSION: 14.967 mm (> 18.000) MV EF SLOPE: 67 mm/s (70 - 150) EPSS: 0.7 cm MV E Frank: 0.41 m/s MV DecT: 167 ms MV A Frank: 0.89 m/s MV E/A Ratio: 0.46 RAP: 5.00 mmHg RVSP: 35.07 mmHg TAPSE: 18.55 mm FINDINGS -------- Undetermined rhythm. This was a technically good study. LV size, wall thickness and systolic function are normal, with an EF greater than 55%. The left nikia tricular size is normal. The right ventricle is normal in size. LA is midly dilated 29-33ml/m2. The right atrial size is normal. There is mild aortic valve sclerosis. There is no evidence of aortic regurgitation. The mitral valve leaflets are mildly thickened. Moderate mitral regurgitation is present. Mild tricuspid regurgitation present. There is mild pulmonary hypertension. There is no pulmonic regurgitation present. Echo free space indicative of a pericardial fat pad. CONCLUSIONS -------- 1. LV size, wall thickness and systolic function are normal, with an EF greater than 55%. 2. The left ventricular size is normal. 3. The right ventricle is normal in size. 4. LA is midly dilated 29-33ml/m2. 5. There is mild aortic valve sclerosis. 6. The mitral valve leaflets are mildly thickened. 7. Moderate mitral regurgitation is present. 8. Mild tricuspid regurgitation present. 9. There is mild pulmonary hypertension. 10. Echo free space indicative of a pericardial fat pad. AGRICULTURE SCIENCE TEACHER: Lynette Luther RDCS
--- NOTE | 2021-06-10 09:21 | P.PN ---
Subjective Progress Note Date: 06/10/21 PROGRESS NOTE The patient is a 75-year-old female who was admitted yesterday with abdominal discomfort, nausea and vomiting and was found to have mild troponin elevation. Her computed tomography scan of the abdomen showed liver lesions suspicious for metastatic disease and her Chest x-ray raised the possibility of hilar mass. Her echocardiogram showed a normal systolic function. Her troponin elevation is minimal and is going down. She denies any chest discomfort, dizziness or palpitations. She has no further nausea or vomiting. Hemodynamically she is stable. PHYSICAL EXAMINATION: Blood pressure [147/80] heart rate [88] LUNGS: [Clear to auscultation] HEART: [Regular rate and rhythm, S1, S2. No S3. Systolic murmur at the base] ABDOMEN: [Soft, nontender, no organomegaly] EXTREMETIES: [No edema] LAB: Potassium 3.6, hemoglobin 13.1, BUN and creatinine 16 and 0.77 IMPRESSION: 1. [ Nausea and vomiting with abnormal computed tomography scan of the abdomen showing liver masses rule out malignancy] 2. [ Possible hilar mass could be primary lung cancer] 3. [ Mild troponin elevation with no evidence of acute ischemic event] 4. [ History of hyperlipidemia] PLAN: At this time from the cardiac standpoint I will stop her IV heparin, continue her beta maria esther. She will be evaluated by her primary team for computed tomography scan of the chest and may benefit from pulmonary evaluation for po ssible lung mass and liver metastasis. Depending on her progress further recommendation will be made. In a patient with a history of chronic tobacco use. Objective - Vital Signs Vital signs: Vital Signs Temp 99.1 F 06/10/21 08:23 Pulse 88 06/10/21 08:23 Resp 16 06/10/21 08:23 BP 147/80 06/10/21 08:23 Pulse Ox 92 L 06/10/21 08:23 Intake & Output 06/09/21 06/10/21 06/10/21 18:59 06:59 18:59 Intake Total 89.903 Balance 89.903 Weight 58.967 kg Intake: Intake, IV Titration 89.903 Amount Heparin Sod,Pork in 0.45% 89.903 NaCl 25,000 unit In 0.45 % NaCl 1 250ml.bag @ 12 UNITS/KG/HR 7.076 mls/hr IV .Q24H [facility] Rx#: [id number] Other: Voiding Method Toilet # Voids 2 - Labs CBC & Chem 7: 06/10/21 06:54 06/10/21 06:54 Labs: Abnormal Lab Results - Last 24 Hours (Table) 06/09/21 06/09/21 06/09/21 Range/Units 08:00 11:33 12:46 Neutrophils # (1.3-7.7) k/uL Lymphocytes # 0.8 L (1.0-4.8) k/uL APTT (22.0-30.0) sec Sodium (137-145) mmol/L Carbon Dioxide (22-30) mmol/L Glucose (74-99) mg/dL Troponin I 0.130 H* (0.000-0.034) ng/mL HDL Cholesterol 33.20 L (40.00-60.00) mg/dL 06/09/21 06/10/21 06/10/21 Range/Units 18:48 00:25 06:54 Neutrophils # 8.8 H (1.3-7.7) k/uL Lymphocytes # 0.8 L (1.0-4.8) k/uL APTT 39.1 H 39.5 H (22.0-30.0) sec Sodium (137-145) mmol/L Carbon Dioxide (22-30) mmol/L Glucose (74-99) mg/dL Troponin I (0.000-0.034) ng/mL HDL Cholesterol (40.00-60.00) mg/dL 06/10/21 06/10/21 Range/Units 06:54 06:54 Neutrophils # (1.3-7.7) k/uL Lymphocytes # (1.0-4.8) k/uL APTT 48.9 H (22.0-30.0) sec Sodium 134 L (137-145) mmol/L Carbon Dioxide 21 L (22-30) mmol/L Glucose 71 L (74-99) mg/dL Troponin I (0.000-0.034) ng/mL HDL Cholesterol (40.00-60.00) mg/dL
[2021-06-10] MEDS: METOPROLOL TARTRATE 25 MG TAB PO SCH ×2 (09:53→19:38)
[2021-06-10] MEDS: NICOTINE 14MG/24HR PATCH TRANSDERM SCH (09:53)
[2021-06-10] MEDS: ASPIRIN 81 MG PO SCH (09:53)
[2021-06-10] MEDS: SODIUM CHLORIDE 0.9% 1,000 ML IV SCH ×2 (09:54→16:08)
[2021-06-10] MEDS: PANTOPRAZOLE 40 MG/10 ML VIAL IV SCH (09:54)
[2021-06-10] MEDS: ATORVASTATIN 40 MG TAB PO SCH (09:55)
--- NOTE | 2021-06-10 11:51 | P.GSCN ---
History of Present Illness Consult date: 06/10/21 History of present illness: 75-year-old female presented to the emergency department complaining of abdominal pain, some nausea and emesis. She recently did undergo tooth extraction and states that this began shortly after that time. She states that she has not had a bowel movement in proximately 4 days. She states that she has been having flatus and her last episode of flatus was this morning. Troponin levels were noted to be elevated and she has been followed by cardiology. CT of the abdomen and pelvis was also performed concerning for possibility of small bowel obstruction along with multiple hypodense liver lesions suggestive of metastatic disease. Chest x-ray this morning also was concerning for a possible right hilar mass. Pulmonology has been consulted. Patient does have a history of breast cancer. Currently states that she is not having any significant abdominal pain and denies any nausea. She denies having any previous abdominal surgery. Review of Systems All systems: negative Past Medical History Past Medical History: No Reported History Additional Past Medical History / Comment(s): L breast cancer with lumpectomy/radiation, arthritis bilateral hands, benign colon polyps, hiatal hernia, bilateral [place]/tinnitis, sinus problems. History of Any Multi-Drug Resistant Organisms: None Reported Past Surgical History: Breast Surgery Additional Past Surgical History / Comment(s): L breast biopsy/ lumpectomy, colonoscpopy/polypectomy, L wrist carpal tunnel release, vaginal lesion removed Past Anesthesia/Blood Transfusion Reactions: No Reported Reaction Past Psychological History: No Psychological Hx Reported Smoking Status: Current every day smoker Past Alcohol Use History: Rare Past Drug Use History: None Reported - Past Family History Father Family Medical History: No Reported History Additional Family Medical History / Comment(s): Father was healthy Mother Family Medical History: Cancer Additional Family Medical History / Comment(s): Colon cancer Medications and Allergies Home Medications Medication Instructions Recorded Confirmed Type Cephalexin [Keflex] 500 mg PO Q12HR 06/08/21 06/08/21 History Cetirizine HCl [Zyrtec] 10 mg PO DAILY 06/08/21 06/08/21 History Gabapentin [Neurontin] 400 mg PO HS 06/08/21 06/08/21 History HYDROcodone/IBUPROFEN 7.5-200 1 tab PO TID PRN 06/08/21 06/08/21 History [Vicoprofen 7.5-200 mg] Pravastatin Sodium 80 mg PO DAILY 06/08/21 06/08/21 History Prochlorperazine [Compazine] 5 mg PO TID PRN 06/08/21 06/08/21 History Allergies Allergy/AdvReac Type Severity Reaction Status Date / Time Penicillins Allergy Unknown Verified 06/08/21 19:36 Surgical - Exam Osteopathic Statement: *. No significant issues noted on an osteopathic structural exam other than those noted in the History and Physical/Consult. Vital Signs Temp Pulse Resp BP Pulse Ox 97.9 F 92 20 156/91 96 06/08/21 16:49 06/08/21 16:49 06/08/21 16:49 06/08/21 16:49 06/08/21 16:49 - General well nourished, no distress - Eyes normal ocular movement - ENT no hearing loss, poor group home - Neck trachea midline - Respiratory normal respiratory effort - Abdomen Soft, no significant tenderness, mild distention, no rebound, no guarding - Psychiatric oriented to time, oriented to person, oriented to place Results - Labs 06/10/21 06:54 06/10/21 06:54 Abnormal Lab Results - Last 24 Hours (Table) 06/09/21 06/09/21 06/09/21 Range/Units 08:00 11:33 12:46 Neutrophils # (1.3-7.7) k/uL Lymphocytes # 0.8 L (1.0-4.8) k/uL APTT (22.0-30.0) sec Sodium (137-145) mmol/L Carbon Dioxide (22-30) mmol/L Glucose (74-99) mg/dL Troponin I 0.130 H* (0.000-0.034) ng/mL HDL Cholesterol 33.20 L (40.00-60.00) mg/dL 06/09/21 06/10/21 06/10/21 Range/Units 18:48 00:25 06:54 Neutrophils # 8.8 H (1.3-7.7) k/uL Lymphocytes # 0.8 L (1.0-4.8) k/uL APTT 39.1 H 39.5 H (22.0-30.0) sec Sodium (137-145) mmol/L Carbon Dioxide (22-30) mmol/L Glucose (74-99) mg/dL Troponin I (0.000-0.034) ng/mL HDL Cholesterol (40.00-60.00) mg/dL 06/10/21 06/10/21 Range/Units 06:54 06:54 Neutrophils # (1.3-7.7) k/uL Lymphocytes # (1.0-4.8) k/uL APTT 48.9 H (22.0-30.0) sec Sodium 134 L (137-145) mmol/L Carbon Dioxide 21 L (22-30) mmol/L Glucose 71 L (74-99) mg/dL Troponin I (0.000-0.034) ng/mL HDL Cholesterol (40.00-60.00) mg/dL Diabetes panel 06/09/21 06/10/21 Range/Units 08:00 06:54 Sodium 134 L (137-145) mmol/L Potassium 3.6 (3.5-5.1) mmol/L Chloride 104 (98-107) mmol/L Carbon Dioxide 21 L (22-30) mmol/L BUN 16 (7-17) mg/dL Creatinine 0.77 (0.52-1.04) mg/dL Glucose 71 L (74-99) mg/dL Calcium 8.4 (8.4-10.2) mg/dL Triglycerides 121.00 (0.00-149.00) mg/dL HDL Cholesterol 33.20 L (40.00-60.00) mg/dL Calcium panel 06/10/21 Range/Units 06:54 Calcium 8.4 (8.4-10.2) mg/dL Pituitary panel 06/10/21 Range/Units 06:54 Sodium 134 L (137-145) mmol/L Potassium 3.6 (3.5-5.1) mmol/L Chloride 104 (98-107) mmol/L Carbon Dioxide 21 L (22-30) mmol/L BUN 16 (7-17) mg/dL Creatinine 0.77 (0.52-1.04) mg/dL Glucose 71 L (74-99) mg/dL Calcium 8.4 (8.4-10.2) mg/dL Adrenal panel 06/10/21 Range/Units 06:54 Sodium 134 L (137-145) mmol/L Potassium 3.6 (3.5-5.1) mmol/L Chloride 104 (98-107) mmol/L Carbon Dioxide 21 L (22-30) mmol/L BUN 16 (7-17) mg/dL Creatinine 0.77 (0.52-1.04) mg/dL Glucose 71 L (74-99) mg/dL Calcium 8.4 (8.4-10.2) mg/dL Assessment and Plan Plan: 75-year-old female with concern for small bowel obstruction, liver lesions and possible hilar mass. Patient also had elevated troponins with no obvious acute ischemic event. She is being evaluated by cardiology for this issue. Echo was performed. At this point, the patient states that she is having flatus and has not having any nausea or vomiting. Based on CT, I was having concern and did recommend placing nasogastric tube. However, patient states she is not having any nausea or vomiting episodes and her abdominal pain is improving and she is having flatus. At this point, we can avoid placing nasogastric tube for the time being. There is also concern for possible metastatic disease with no primary source confirmed at this time. There is consideration for a hilar mass and patient will likely require CT of the chest to evaluate for this. At this point, due to bowel function, we will attempt beginning clear liquid diet and base further surgical decisions based on her clinical progress.
[2021-06-10] MEDS ORDERED: RX INFO: IV CONTRAST WAS GIVEN 1 EACH MISC MISCELLANE PRN (12:07)
--- NOTE | 2021-06-10 12:07 | P.CNPUL ---
History of Present Illness Consult date: 06/10/21 Reason for consult: lung mass History of present illness: 75-year-old female patient I'm seeing her for a right hilar mass and possibility of a malignancy. The patient had ptosis fraction approximately 5 days ago. Since then, the patient started having some abdominal pain and nausea and emesis. The patient stated that she had not had any bowel movement approximately 3-4 days prior to her hospital admission. She was passing flatus. No nausea. No emesis. She came into the hospital the CAT scan of the abdomen was done and was concerning for a small bowel obstruction along with multiple hypodense liver lesions suggestive of metastatic disease. Chest x-ray also showed a right hilar mass. The patient is also known to have COPD and previous history of breast cancer. She has undergone a left breast lumpectomy followed by radiation therapy. The pulmonary consultation was requested accordingly. Initially the patient was kept nothing by mouth and currently the patient is allowed to take some clear liquid diet. NG tube has not been placed. Note that the patient also had a low dose of the chest for lung cancer screening back in 2019 and back then there was no evidence of any malignancy. The patient smokes approximately half to 1 pack of cigarettes and she's been smoking for many years. She has been smoking for at least 50 years for now. She does not use oxygen. She does not use any form of respiratory medications or inhalers. She has taken COVID 19 vaccination 2. He COVID 19 testing was negative during this current admission. Review of Systems Constitutional: Reports weakness Eyes: denies as per HPI, denies blurred vision, denies bulging eye, denies decreased vision, denies diplopia, denies discharge, denies dry eye, denies irritation, denies itching, denies pain, denies photophobia, denies loss of peripheral vision, denies loss of vision, denies tunnel vision/blind spots Ears: deny: decreased hearing, ear discharge, earache, tinnitus Ears, nose, mouth and throat: Reports as per HPI Breasts: absent: as per HPI, change in shape, gynecomastia, masses, nipple d ischarge, pain, skin changes, swelling Cardiovascular: Reports as per HPI Respiratory: Reports as per HPI Gastrointestinal: Reports abdominal pain, Reports nausea Genitourinary: Reports as per HPI Menstruation: Reports as per HPI Musculoskeletal: Reports as per HPI Musculoskeletal: absent: ankle pain, ankle stiffness, ankle swelling Integumentary: Reports as per HPI Neurological: Reports as per HPI Psychiatric: Reports as per HPI Endocrine: Reports as per HPI Hematologic/Lymphatic: Reports as per HPI Allergic/Immunologic: Reports as per HPI Past Medical History Past Medical History: No Reported History, Cancer, COPD, Hyperlipidemia Additional Past Medical History / Comment(s): L breast cancer with lum pectomy/radiationin 2004, arthritis bilateral hands, benign colon polyps, hiatal hernia, bilateral YOMBA SHOSHONE/tinnitis, sinus problems. History of Any Multi-Drug Resistant Organisms: None Reported Past Surgical History: Breast Surgery Additional Past Surgical History / Comment(s): L breast biopsy/ lumpectomy, colonoscpopy/polypectomy, L wrist carpal tunnel release, vaginal lesion removed Past Anesthesia/Blood Transfusion Reactions: No Reported Reaction Past Psychological History: No Psychological Hx Reported Smoking Status: Current every day smoker Past Alcohol Use History: Rare Past Drug Use History: None Reported - Past Family History Father Family Medical History: No Reported History Additional Family Medical History / Comment(s): Father was healthy Mother Family Medical History: Cancer Additional Family Medical History / Comment(s): Colon cancer Medications and Allergies Home Medications Medication Instructions Recorded Confirmed Type Cephalexin [Keflex] 500 mg PO Q12HR 06/08/21 06/08/21 History Cetirizine HCl [Zyrtec] 10 mg PO DAILY 06/08/21 06/08/21 History Gabapentin [Neurontin] 400 mg PO HS 06/08/21 06/08/21 History HYDROcodone/IBUPROFEN 7.5-200 1 tab PO TID PRN 06/08/21 06/08/21 History [Vicoprofen 7.5-200 mg] Pravastatin Sodium 80 mg PO DAILY 06/08/21 06/08/21 History Prochlorperazine [Compazine] 5 mg PO TID PRN 06/08/21 06/08/21 History Allergies Allergy/AdvReac Type Severity Reaction Status Date / Time Penicillins Allergy Unknown Verified 06/08/21 19:36 Physical Exam Vitals: Vital Signs Temp Pulse Pulse Resp BP BP Pulse Ox 06/10/21 08:23 99.1 F 88 16 147/80 92 L 06/10/21 04:30 98.8 F 82 20 138/73 96 06/10/21 02:00 94 06/09/21 23:10 98.4 F 94 18 156/76 99 06/09/21 20:00 98.9 F 88 18 148/73 93 L 06/09/21 16:16 75 18 157/73 93 L 06/09/21 16:15 99.1 F 89 16 155/92 93 L 06/09/21 14:01 87 18 129/75 96 Intake and Output 06/09/21 06/10/21 06/10/21 22:59 06:59 14:59 Intake Total 46.702 43.201 Balance 46.702 43.201 Intake: Intake, IV Titration 46.702 43.201 Amount Heparin Sod,Pork in 0.45% 46.702 43.201 NaCl 25,000 unit In 0.45 % NaCl 1 250ml.bag @ 12 UNITS/KG/HR 7.076 mls/hr IV .Q24H BRENDA Rx#: [id number] Other: Voiding Method Toilet Toilet # Voids 2 GENERAL: Sitting up on stretcher, smiling, very hard of hearing she is currently on room air oxygen. Her breathing is nonlabored. Head exam was generally normal. There was no scleral icterus or corneal arcus. Mucous membranes were moist. HEENT: Conjunctivae normal. eyes normal. 3 teeth recently extracted. NECK: No JVD. No thyroid enlargement. No LNs CARDIOVASCULAR: S1, S2 regular. Systolic murmur RESPIRATION: Breath sounds diminished in the bases. No rhonchi or crackles. No bronchial breathing. ABDOMEN: Soft, nondistended, mid epigastric tenderness ,No guarding. no masses palpable. No ascites, No hepatosplenomegaly.Bowel sounds heard. Examination of the extremities revealed easily palpable radial, femoral and pedal pulses. There was no cyanosis, clubbing or edema. PSYCHIATRY: Alert and oriented X3, mood and affect normal. NERVOUS SYSTEM: Cranial N 2-12 grossly normal. Moves all 4 limbs. Diffuse weakness ,No focal deficits. Strength and sensation grossly intact. Skin: Warm and dry, no rash Results - Laboratory Findings CBC and BMP: 06/10/21 06:54 06/10/21 06:54 PT/INR, D-dimer PT 10.4 sec (9.0-12.0) 06/10/21 06:54 INR 0.9 (<1.2) 06/10/21 06:54 Abnormal lab findings: Abnormal Labs 06/08/21 06/08/21 06/08/21 19:36 19:36 19:36 Neutrophils # Lymphocytes # 0.6 L APTT Sodium 128 L Potassium Chloride 87 L Carbon Dioxide BUN 24 H Glucose AST 50 H Troponin I 0.097 H* HDL Cholesterol Lipase 311 H Ur Specific [place] Urine Protein Urine Ketones Urine Blood Ur Leukocyte Esterase Urine RBC Ur Squamous Epith Cells Urine Bacteria 06/09/21 06/09/21 06/09/21 02:59 08:00 08:00 Neutrophils # Lymphocytes # APTT Sodium 130 L Potassium 3.4 L Chloride Carbon Dioxide BUN 19 H Glucose AST Troponin I 0.151 H* HDL Cholesterol Lipase Ur Specific [place] >1.050 H Urine Protein Trace H Urine Ketones 2+ H Urine Blood Small H Ur Leukocyte Esterase Small H Urine RBC 8 H Ur Squamous Epith Cells 12 H Urine Bacteria Rare H 06/09/21 06/09/21 06/09/21 08:00 11:33 12:46 Neutrophils # Lymphocytes # 0.8 L APTT Sodium Potassium Chloride Carbon Dioxide BUN Glucose AST Troponin I 0.130 H* HDL Cholesterol 33.20 L Lipase Ur Specific [place] Urine Protein Urine Ketones Urine Blood Ur Leukocyte Esterase Urine RBC Ur Squamous Epith Cells Urine Bacteria 06/09/21 06/10/21 06/10/21 18:48 00:25 06:54 Neutrophils # 8.8 H Lymphocytes # 0.8 L APTT 39.1 H 39.5 H Sodium Potassium Chloride Carbon Dioxide BUN Glucose AST Troponin I HDL Cholesterol Lipase Ur Specific [place] Urine Protein Urine Ketones Urine Blood Ur Leukocyte Esterase Urine RBC Ur Squamous Epith Cells Urine Bacteria 06/10/21 06/10/21 06:54 06:54 Neutrophils # Lymphocytes # APTT 48.9 H Sodium 134 L Potassium Chloride Carbon Dioxide 21 L BUN Glucose 71 L AST Troponin I HDL Cholesterol Lipase Ur Specific [place] Urine Protein Urine Ketones Urine Blood Ur Leukocyte Esterase Urine RBC Ur Squamous Epith Cells Urine Bacteria - Diagnostic Findings Chest x-ray: image reviewed Assessment and Plan Plan: 1 suspected right hilar mass based on chest x-ray findings. We'll proceed with a CAT scan of the chest. 2 COPD with emphysematous changes in the upper lobes bilaterally 3 metastatic liver lesions, consider underlying malignancy, consider underlying primary lung cancer 4 partial small bowel obstruction. Please refer to the CAT scan of the abdomen. General surgery on the case 5 abnormal troponin with mild elevation without any evidence of an acute ischemic event. Cardiology been in the case 6 hyperlipidemia 7 remote history of breast cancer on the left with a previous lumpectomy followed by radiation therapy followed by tamoxifen treatment for a total of 5 years. 8 history of smoking, more than [id number]. Currently on a nicotine patch. Plan Proceed with a CAT scan of the chest with contrast Final decision on diagnostic procedure will be made once the CAT scan of the chest is reviewed Start the patient on DuoNeb nebulized treatments around the clock Nicotine patch Cardiology consultation Gen. surgery consultation regarding partial abdominal obstruction We'll continue to follow.
--- NOTE | 2021-06-10 14:06 | CT ---
EXAMINATION TYPE: CT chest w con DATE OF EXAM: 06/10/2021 COMPARISON: CT low-dose lung 2019. Chest x-ray from yesterday. HISTORY: history of lung mass, recent abnormal chest x-ray. CT DLP: 238.4 mGycm. Automated Exposure Control for Dose Reduction was Utilized. TECHNIQUE: CT scan of the thorax is performed following with IV Contrast, patient injected with 100 mL of Isovue 300. FINDINGS: LUNGS: Moderate underlying emphysematous change is redemonstrated. There is new 11 by 6 mm peripheral right midlung low dense nodule continuous with some central linear reticulation. Left lung is clear. No pleural effusion or pneumothorax is seen bilaterally. MEDIASTINUM: Corresponding to x-ray there is new right hilar heterogeneous hypodense mass invading th e mediastinum contiguous through the paratracheal and subcarinal regions measuring approximate 5.7 cm transversely by 5.1 cm AP diameter axial image 27 this is encasing and narrowing the right upper sushma g bronchus and segmental branching vessels centrally. There is some narrowing and patency of the righ t lung pulmonary artery branches. There is encasement of the bronchus intermedius which remains paten t. Craniocaudal dimension is nearly 13 cm coronal image 50 continuing right paratracheal region all t he way to the thoracic inlet posterior to the lower pole right thyroid lobe. Tiny pericardial effusio n is seen. No cardiomegaly. OTHER: Surgical changes left breast upper outer quadrant axial image 27 redemonstrated. Heterogeneous hypodense metastatic disease to the liver seen on recent CT abdomen study is again seen. Mild-to-mod erate multilevel spurring in the thoracic spine IMPRESSION: Confirmation of large right hilar mass with mediastinal invasion up to level of thoracic inlet consistent with primary lung neoplasm, consider small cell carcinoma. Metastatic disease to the liver redemonstrated.
--- NOTE | 2021-06-10 16:23 | P.PN ---
Subjective Progress Note Date: 06/10/21 This is a pleasant 75-year-old female, Covid vaccinated X 2, hard of hearing, left breast cancer with lumpectomy/radiation, arthritis with past medical history of nicotine dependence-has smoked since she was a teen and is currently at a half pack per day, hiatal hernia presented to the ER with mid epigastric abdominal pain, constipation, nausea, vomiting of dk. brown emesis. Patient reports on last Monday she had [address] Ramirez secondary to gingivitis. Postprocedure she found it very difficult to eat and drink. Sodium 128 to 1:30, BUN ranging from 11-7, creatinine 0.82. Reports she is not passing any flatus ,with no bowel movement since her teeth extraction. Tested negative for Coronavirus. Hypoxic, O2 sat 87% on room air currently high 90s to 100% on 2 L nasal cannula. Denies any chest pain, chest pressure, or shortness of breath. Troponin 0.097, 0.151. Evaluated by cardiology, echo pending. EKG reporting normal sinus rhythm. Chest x-ray pending. CT of abdomen and pelvis reporting new multiple hypodense liver lesions suggestive of metastatic disease measuring up to 4 cm, will require further monitoring/workup outpatient, dilated small bowel with fluid suggestive of new mechanical small bowel obstruction, transition point not identified. LFTs within normal limits with the exception of AST mildly elevated ,50. Lipase 311. Afebrile, normal WBC. UA Negative. H emoglobin 14.7, platelets 289, PT 9.8, INR 0.9. Received IV fluids, antiemetics, morphine and PPI, feeling better. 06/10/2021 no bowel movement, patient reports passing flatus .no further nausea or vomiting .reports abdominal pain improving . NG tube on hold at this time as per surgery .clear liquid diet initiated .maintained on nebulized bronchodilators, nicotine patch , maintaining O2 sats in the 90s on room air.Chest x-ray reporting possible right hilar mass, the patient with history of breast cancer. Evaluated by pulmonary, chest CT ordered. Telemetry sinus rhythm, denies chest pain, palpitations, heparin drip discontinued as per cardiology. Objective - Vital Signs Vital signs: Vital Signs Temp 98.5 F 06/10/21 12:00 Pulse 88 06/10/21 12:00 Resp 16 06/10/21 12:00 BP 148/76 06/10/21 12:00 Pulse Ox 93 L 06/10/21 12:00 Intake & Output 06/09/21 06/10/21 06/10/21 18:59 06:59 18:59 Intake Total 89.903 240 Output Total 300 Balance 89.903 -60 Weight 58.967 kg Intake: Intake, IV Titration 89.903 Amount Heparin Sod,Pork in 0.45% 89.903 NaCl 25,000 unit In 0.45 % NaCl 1 250ml.bag @ 12 UNITS/KG/HR 7.076 mls/hr IV .Q24H BRENDA Rx#: [id number] Oral 240 Output: Urine 300 Other: Voiding Method Toilet # Voids 2 - Exam PHYSICAL EXAM: VITAL SIGNS: [As above] GENERAL: Alert and oriented 3,Sitting up in bed, smiling, hard of hearing HEENT: Conjunctivae normal. eyes normal. 3 teeth recently extracted. NECK: No JVD. No thyroid enlargement. No LNs CARDIOVASCULAR: S1, S2 regular. Systolic murmur RESPIRATION: Breath sounds diminished in the bases. No rhonchi or crackles. ABDOMEN: Soft, minimally distended, diffuse mid epigastric tenderness ,No guarding. no masses palpable.Bowel sounds heard. LEGS: No edema. no swelling NERVOUS SYSTEM: Cranial N 2-12 grossly normal. No focal deficits. Strength and sensation grossly intact. Skin: Warm and dry, no rash - Labs CBC & Chem 7: 06/10/21 06:54 06/10/21 06:54 Labs: Abnormal Lab Results - Last 24 Hours (Table) 06/09/21 06/09/21 06/10/21 Range/Units 08:00 18:48 00:25 Neutrophils # (1.3-7.7) k/uL Lymphocytes # (1.0-4.8) k/uL APTT 39.1 H 39.5 H (22.0-30.0) sec Sodium (137-145) mmol/L Carbon Dioxide (22-30) mmol/L Glucose (74-99) mg/dL HDL Cholesterol 33.20 L (40.00-60.00) mg/dL 06/10/21 06/10/21 06/10/21 Range/Units 06:54 06:54 06:54 Neutrophils # 8.8 H (1.3-7.7) k/uL Lymphocytes # 0.8 L (1.0-4.8) k/uL APTT 48.9 H (22.0-30.0) sec Sodium 134 L (137-145) mmol/L Carbon Dioxide 21 L (22-30) mmol/L Glucose 71 L (74-99) mg/dL HDL Cholesterol (40.00-60.00) mg/dL Assessment and Plan Assessment: Mechanical ileus, in a patient with 3 teeth extracted 5 days ago, with Dr. Ramirez- oral surgeon; minimal oral intake post procedure, on antibiotics, NSAIDs and opioids, with nausea, dark brown emesis and mid epigastric pain. Reports no flatus, no bowel movement 4-[address] reports dilated small bowel with fluid suggestive of new mechanical small bowel obstruction, transition point not identified. Mildly elevated lipase Right hilar mass suspected, per chest x-ray, chest CT pending Multiple hypodense liver lesions suggestive of metastatic disease To 4 cm r eported per CT, in a patient with history of left breast CA with lumpectomy, radiation ;further workup, monitoring outpatient Hypovolemic hyponatremia secondary to #1 Hypokalemia Elevated troponins, without chest pain reported, no acute ischemic event as per Cardiology. EF greater than 55% Moderate mitral regurgitation mild pulmonary hypertension COPD with underlying emphysema Nicotine dependence Occasional alcohol use Arthritis Plan: Continue on current medication regime ,monitoring and symptomatic treatment. Chest CT pending . Evaluated by pulmonary and general surgery with recommendations noted and appreciated. Clear liquids, PPI. Smoking cessation reinforced. Prognosis guarded given multiple complex medical issues. The impression and plan of care has been dictated as directed. : I performed a history and examination of this patient, discussed the same with the dictator. I agree with the dictator's note ,documented as a scribe. Any additional findings or plans will be noted.
[2021-06-10] MEDS: IPRATROPIUM-ALBUTEROL 3 ML NEB INHALATION SCH ×2 (16:47→21:04)
[2021-06-11] MEDS: SODIUM CHLORIDE 0.9% 1,000 ML IV SCH ×4 (05:08→15:20)
[2021-06-11] MEDS: IPRATROPIUM-ALBUTEROL 3 ML NEB INHALATION SCH ×5 (07:39→19:55)
[2021-06-11] MEDS: MORPHINE SULFATE 4 MG/ML SYRINGE IV PRN ×4 (07:42→22:51)
--- NOTE | 2021-06-11 09:11 | P.PN ---
Subjective Progress Note Date: 06/11/21 Principal diagnosis: Right hilar mass 75-year-old female patient I'm seeing her for a right hilar mass and possibility of a malignancy. The patient had ptosis fraction approximately 5 days ago. Since then, the patient started having some abdominal pain and nausea and emesis. The patient stated that she had not had any bowel movement approximately 3-4 days prior to her hospital admission. She was passing flatus. No nausea. No emesis. She came into the hospital the CAT scan of the abdomen was done and was concerning for a small bowel obstruction along with multiple hy podense liver lesions suggestive of metastatic disease. Chest x-ray also showed a right hilar mass. The patient is also known to have COPD and previous history of breast cancer. She has undergone a left breast lumpectomy followed by radiation therapy. The pulmonary consultation was requested accordingly. Initially the patient was kept nothing by mouth and currently the patient is allowed to take some clear liquid diet. NG tube has not been placed. Note that the patient also had a low dose of the chest for lung cancer screening back in 2019 and back then there was no evidence of any malignancy. The patient smokes approximately half to 1 pack of cigarettes and she's been smoking for many years. She has been smoking for at least 50 years for now. She does not use oxygen. She does not use any form of respiratory medications or inhalers. She has taken COVID 19 vaccination 2. He COVID 19 testing was negative during this current admission. The patient is seen today for very fourth 2021 in follow-up on the selective care unit. She is currently awake and alert in no acute distress. Resting comfortably in bed. She has been having bowel movements. She is passing gas. Abdominal discomfort has somewhat subsided. She is maintaining good O2 saturation 90s on room air. She's been afebrile. Hemodynamically stable. White count 10.6. Hematoma 13.1. INR 0.9. Sodium 134. Potassium 3.6. Bicarb 21. Creatinine 0.77. She is continued on bronchodilators, Protonix, NicoDerm patch. 0.9 normal saline at 110 ML's per hour. Heparin drip was discontinued. Objective - Vital Signs Vital signs: Vital Signs Temp 97.9 F 06/11/21 04:10 Pulse 89 06/11/21 07:39 Resp 18 06/11/21 04:10 BP 155/83 06/11/21 07:41 Pulse Ox 94 L 06/11/21 04:10 Intake & Output 06/10/21 06/11/21 06/11/21 18:59 06:59 18:59 Intake Total 480 Output Total 300 Balance 180 Intake: Oral 480 Output: Urine 300 Other: Voiding Method Toilet # Voids 2 - Exam GENERAL EXAM: Alert, pleasant 75-year-old female patient, on room air, fairly comfortable in no apparent distress. HEAD: Normocephalic. EYES: Normal reaction of pupils, equal size. NOSE: Clear with pink turbinates. THROAT: No erythema or exudates. NECK: No masses, no JVD. CHEST: No chest wall deformity. LUNGS: Equal air entry with no crackles, wheeze, rhonchi or dullness. CVS: S1 and S2 normal with no audible murmur, regular rhythm. ABDOMEN: Discomfort on palpation. Positive hepatomegaly, normal bowel sounds, no guarding or rigidity. SPINE: No scoliosis or deformity SKIN: No rashes CENTRAL NERVOUS SYSTEM: No focal deficits, tone is normal in all 4 extremities. EXTREMITIES: There is no peripheral edema. No clubbing, no cyanosis. Peripheral pulses are intact. - Labs CBC & Chem 7: 06/10/21 06:54 06/10/21 06:54 Assessment and Plan Assessment: 1 Suspected right hilar mass based on chest x-ray findings. Computed tomography scan of the chest confirmed a large right hilar mass with mediastinal invasion up to the level of the thoracic inlet consistent with primary lung neoplasm, consider small cell carcinoma. Metastatic disease to the liver. 2 COPD with emphysematous changes in the upper lobes bilaterally 3 Metastatic liver lesions, consider underlying malignancy, consider underlying primary lung cancer 4 Partial small bowel obstruction. Please refer to the CAT scan of the abdomen. General surgery on the case 5 Abnormal troponin with mild elevation without any evidence of an acute ischemic event. Cardiology been in the case 6 Hyperlipidemia 7 Remote history of breast cancer on the left with a previous lumpectomy followed by radiation therapy followed by tamoxifen treatment for a total of 5 years. 8 History of smoking, more than [id number]. Currently on a nicotine patch. Plan: The patient was seen and evaluated CAT scan results discussed with the patient in detail Her daughter Lakshmi was also called and discussed the CAT scan result and plan We will proceed with EBUS FNA of the right hilar mass today The patient has been having flatus and bowel movements Heparin drip was discontinued per cardiology Possible discharge later today after the procedure if tolerating a diet Again educated regarding importance of complete smoking cessation. NicoDerm patch is applied. We will continue to follow and make further recommendations based on her clinical status I, the cosigning physician, performed a history & physical examination of the patient. Lungs sounds are clear. Maintaining good O2 saturations in the 90s on room air. I discussed the assessment and plan of care with my nurse practitioner, Merlene Warner. I attest to the above note as dictated by her.
[2021-06-11 09:17] LABS: Basophils % (A) 0 %; Eosinophils # (A) 0.1 k/uL (0-0.7); Eosinophils % (A) 1 %; HCT 38.8 % (34.0-46.0); HGB 13.2 gm/dL (11.4-16.0); Lymphocytes # (A) 0.7 k/uL (1.0-4.8); Lymphocytes % (A) 8 %; MCH 33.5 pg (25.0-35.0); MCHC 34.1 g/dL (31.0-37.0); MCV 98.4 fL (80.0-100.0); Monocytes # (A) 0.4 k/uL (0-1.0); Monocytes % (A) 5 %; Neutrophils # (A) 7.4 k/uL (1.3-7.7); Neutrophils % (A) 85 %; Platelet Count 309 k/uL (150-450); RBC 3.94 m/uL (3.80-5.40); RDW 13.2 % (11.5-15.5); WBC 8.7 k/uL (3.8-10.6)
[2021-06-11 09:28] LABS: African American GFR (CKD) >90 (>60 ml/min/1.73 sqM); Anion Gap 13 mmol/L; Blood Urea Nitrogen 14 mg/dL (7-17); Calcium 8.5 mg/dL (8.4-10.2); Carbon Dioxide 18 mmol/L (22-30); Chloride 106 mmol/L (98-107); Glucose 90 mg/dL (74-99); Non-African American GFR(CKD) 81 (>60 ml/min/1.73 sqM); Sodium 137 mmol/L (137-145)
[2021-06-11 09:51] LABS: Potassium 3.5 mmol/L (3.5-5.1)
[2021-06-11] MEDS: ASPIRIN 81 MG PO SCH (09:56)
[2021-06-11] MEDS: PANTOPRAZOLE 40 MG/10 ML VIAL IV SCH (10:02)
[2021-06-11] MEDS: NICOTINE 14MG/24HR PATCH TRANSDERM SCH (10:02)
[2021-06-11] MEDS: METOPROLOL TARTRATE 25 MG TAB PO SCH ×2 (10:02→20:39)
[2021-06-11] MEDS: ATORVASTATIN 40 MG TAB PO SCH (10:02)
--- NOTE | 2021-06-11 12:23 | P.PN ---
Subjective Progress Note Date: 06/11/21 HISTORY OF PRESENT ILLNESS: This is a 75 year old female with a past medical history significant for hyperlipidemia, nicotine dependence of 1 pack per day, and occasional alcohol use. 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 We have been asked to see the patient in consultation for abnormal troponins. Patient examined at the bedside. Patient states she had 3 teeth pulled last Monday and since then she has not been able to eat or drink. Patient had a computed tomography scan performed that was suggestive of a small bowel obstruction. The patient was given Zofran, Pepcid, and morphine. The patient states this morning she is feeling much better. She denies abdominal pain or nausea. The patient was found to have an abnormal troponin of 0.09. Patient denies any chest pain or pressure. She denies any shortness of breath. Patient states she had a stress test performed many years ago that was normal. She denies ever having a cardiac catheterization. EKG reveals sinus mechanism with no signs of acute ischemia CT abdomen and pelvis dilated small bowel with fluid suggestive of mechanical small bowel obstruction. Transition point not identified. Obstruction appears new compared to old exam. Multiple hypodense liver lesions suggestive of metastatic disease. This appears new compared to old exam. Laboratory data: WBC 7.1. Hemoglobin 14.7. Platelet count 289. Sodium 128. Potassium 3.6. BUN 24. Creatinine 0.84. AST 50. ALT 27. Troponin 0.097. Lipase 311. Current home cardiac medications include pravastatin 80 mg daily 06/11/2021 Patient examined this morning at the bedside. Patient denies chest pain or pressure. Denies shortness of breath. Echocardiogram completed revealing ejection fraction greater than 55%, moderate mitral regurgitation, mild tricuspid regurgitation, and mild pulmonary hypertension. PHYSICAL EXAM: VITAL SIGNS: Reviewed. GENERAL: Well-developed in no acute distress. HEENT: Head is normocephalic. Pupils are equal, round. Sclerae anicteric. Mucous membranes of the mouth are moist. Neck supple. No JVD or thyromegaly LUNGS: Respirations even and unlabored. Lungs essentially clear to auscultation bilaterally. HEART: Regular rate and rhythm. S1 and S2 heard. Systolic murmur noted. ABDOMEN: Soft. Nondistended. Nontender. EXTREMITIES: Normal range of motion. No clubbing or cyanosis. Peripheral pulses intact. No lower extremity edema NEUROLOGIC: Awake and alert. Oriented x 3. ASSESSMENT: Abdominal pain, nausea, vomiting Abnormal troponin, of unclear etiology Hyperlipidemia Small bowel obstruction Possible hilar mass could be primary lung cancer Multiple liver lesions suspicious for metastatic disease, per CT scan Elevated lipase Hyponatremia Recent tooth extraction 3 teeth Nicotine dependence Occasional alcohol use PLAN: Continue current cardiac medications No further inpatient recommendations from a cardiac standpoint We will sign off. Please reconsult if needed. Nurse practitioner note has been reviewed by physician. Signing provider agrees with the documented findings, assessment, and plan of care. Objective - Vital Signs Vital signs: Vital Signs Temp 97.9 F 06/11/21 04:10 Pulse 86 06/11/21 12:05 Resp 18 06/11/21 08:00 BP 155/83 06/11/21 07:41 Pulse Ox 94 L 06/11/21 04:10 Intake & Output 06/10/21 06/11/21 06/11/21 18:59 06:59 18:59 Intake Total 480 Output Total 300 Balance 180 Intake: Oral 480 Output: Urine 300 Other: Voiding Method Toilet Toilet # Voids 2 - Labs CBC & Chem 7: 06/11/21 08:09 06/11/21 08:09 Labs: Abnormal Lab Results - Last 24 Hours (Table) 06/11/21 06/11/21 Range/Units 08:09 08:09 Lymphocytes # 0.7 L (1.0-4.8) k/uL Carbon Dioxide 18 L (22-30) mmol/L
[2021-06-11] MEDS ORDERED: IV FLUID CONTINUATION 1,000 ML IV ONE (13:40)
--- NOTE | 2021-06-11 13:42 | P.PN ---
Subjective Progress Note Date: 06/11/21 Patient seen and examined at bedside. Patient states that she has had bowel movement today that was more liquid. Also states she has had flatus. Denies nausea vomiting. She is scheduled for bronchoscopy today due to hilar mass. Objective - Vital Signs Vital signs: Vital Signs Temp 97.9 F 06/11/21 04:10 Pulse 86 06/11/21 12:05 Resp 18 06/11/21 08:00 BP 155/83 06/11/21 07:41 Pulse Ox 94 L 06/11/21 04:10 Intake & Output 06/10/21 06/11/21 06/11/21 18:59 06:59 18:59 Intake Total 480 Output Total 300 Balance 180 Intake: Oral 480 Output: Urine 300 Other: Voiding Method Toilet Toilet # Voids 2 - Constitutional General appearance: Present: cooperative, no acute distress - Gastrointestinal Gastrointestinal Comment(s): Soft, nontender, nondistended, no rebound, no guarding - Musculoskeletal Musculoskeletal: Present: generalized weakness - Psychiatric Psychiatric: Present: A&O x's 3 - Labs CBC & Chem 7: 06/11/21 08:09 06/11/21 08:09 Labs: Abnormal Lab Results - Last 24 Hours (Table) 06/11/21 06/11/21 Range/Units 08:09 08:09 Lymphocytes # 0.7 L (1.0-4.8) k/uL Carbon Dioxide 18 L (22-30) mmol/L Assessment and Plan Plan: 75-year-old female with recent finding of hilar mass. She is undergoing bronchoscopy today for biopsy. She has had bowel function with flatus and bowel movement. It appears that any obstruction is resolving. After bronchoscopy, patient can be placed on clear liquid diet and advance as tolerated.
[2021-06-11] MEDS ORDERED: LIDOCAINE 1% INJ 10MG/ML (20 ML MDV) ONE (14:02)
[2021-06-11] MEDS ORDERED: fentaNYL (PF) 50 MCG/ML 2 ML AMP ONE (14:02)
[2021-06-11] MEDS ORDERED: SUCCINYLCHOLINE CHLORIDE 100 MG/5 ML SYR IV ONE (14:02)
[2021-06-11] MEDS ORDERED: PHENYLEPHRINE-0.9% NACL SYG 1,000 MCG/10 ML SYRINGE ONE (14:02)
[2021-06-11] MEDS ORDERED: PROPOFOL 10 MG/ML 20 ML VIAL IV ONE (14:02)
[2021-06-11] MEDS ORDERED: MIDAZOLAM 2 MG/2 ML VIAL ONE (14:02)
--- NOTE | 2021-06-11 15:17 | P.PCN ---
Date of Procedure: 06/11/21 Operative Findings: Preoperative Diagnosis: 1 right hilar mass 2 mediastinal lymphadenopathy Postoperative Diagnosis: 1 right upper lobe mass, causing significant anatomic distortion and narrowing of the various segments of the right upper lobe bronchus. 2 mediastinal lymphadenopathy, right paratracheal lymph node measuring 25 x 25 mm in size on endobronchial ultrasound and subcarinal mass measuring 14 x 16 mm on endobronchial ultrasound. Procedure(s) Performed: 1 flexible bronchoscopy, airway inspection 2 endoscopic ultrasound (EBUS) 3 transbronchial needle aspirate of station 4R and station 7 lymph nodes 4 bronchioloalveolar lavage of the right upper lobe 5 endobronchial biopsies of the right upper lobe endobronchial tumor. Surgeon: Christiano Reid [employer] Consultant #1: Merlene Warner [employer] Consultant #2: hayden Hurtado Estimated Blood Loss (ml): 0 Pathology: other Condition: stable Disposition: same day Operative Findings: After obtaining the consent the patient was taken to the OR suite he was intubated and put on MV by anesthesia then the scope was advanced to the ET tube until the Trachea was seen and it was normal and then the keaton appears normal then the scope advanced to the left main and SCOOBY LB1-LB3 were seen and no endobronchial lesions were seen then the scope advanced to the lingula and the LB4 and LB5 were seen and no endobronchial lesions were seen the scope retracted and advanced to the left lower lobes LB6 to LB12 were seen one by one and no endobronchial lesions, then the scope was retracted back to the keaton and advanced to the Right main prednisone within normal limits. The right upper lobe bronchus was patent. It was extrinsically compressed and there was. At the same time, there was significant anatomic distortion of the various segments of the right upper lobe including RB1, RB 2 and RB 3 and the orifices of those airways were quite narrowed with endobronchial tumors growing in the distal right upper lobe bronchus invading the various segments of the right upper lobe. The scope then retracted and advanced to the BI and RML RB4 and RB5 were seen and no endobronchial lesions were seen then it was retracted and advanced to the RLL RB6 to RB12 were seen one by one and no endobronchial lesions. A bronchioloalveolar lavage of the right upper lobe was done. A total of 80 L of fluid was infused and 10 mL was aspirated. The aspirate was somewhat bloody. Following that, under direct visualization, endobronchial biopsy of the right upper lobe endobronchial tumor in the distal right upper lobe bronchus was biopsied. As mentioned, the distal right upper lobe bronchus was extubated the compressed and there was endobronchial tumor causing anatomic distortion laterally Diprivan effect with of the right upper lobe. Endobronchial biopsies were obtained and a total of 5-6 biopsies were taken. No bleeding was encountered. Then EBUS was used and the lymph nodes were examined. Direct measurement of the mediastinal lymph nodes revealed a 25 x 25 mm 4R lymph node, and 14 x 16 mm station 7 lymph node . I performed transbronchial needle aspirate of station 7 and a total of 4 passes FNA without major bleeding station 4 R lymph nodes were a total of 4 passes were obtained. No major bleeding and the scope was removed and taken out in total the patient was send to the floor in stable condition The EBUS bronchoscope was removed. Therapeutic airway suctioning was done using a regular flexible bronchoscope. Airways were cleared. It was noted that the patient was having some bilious secretions in the posterior oropharynx. We are aware that the patient was having some partial small bowel obstruction. An NG tube was inserted to decompress the stomach and a total of 200 mL of bilious material was aspirated. NG tube was kept in place. The patient was extubated. The patient will be transferred recovery in stable condition. NG tube will be kept in place regarding bowel obstruction. The patient will be kept nothing by mouth for now.
--- NOTE | 2021-06-11 16:01 | XR ---
EXAMINATION TYPE: XR chest 1V DATE OF EXAM: 06/11/2021 COMPARISON: 06/09/2021 HISTORY: 75-year-old female post biopsy of the lung TECHNIQUE: Single frontal view of the chest is obtained. FINDINGS: NG tube courses below the diaphragm. Right hilar prominence and interstitial changes throughout the r ight lung are unchanged. Surgical clips project at the left breast. No progressive consolidation, pne umothorax, or pleural effusion seen. IMPRESSION: Right hilar soft tissue density, known neoplasm. Patchy interstitial changes within the right lung es pecially the upper lobe could be postobstructive pneumonitis or venous congestion. No appreciable pne umothorax.
--- NOTE | 2021-06-11 16:09 | P.PN ---
Subjective Progress Note Date: 06/11/21 This is a pleasant 75-year-old female, Covid vaccinated X 2, hard of hearing, left breast cancer with lumpectomy/radiation, arthritis with past medical history of nicotine dependence-has smoked since she was a teen and is currently at a half pack per day, hiatal hernia presented to the ER with mid epigastric abdominal pain, constipation, nausea, vomiting of dk. brown emesis. Patient reports on last Monday she had [address] Ramirez secondary to gingivitis. Postprocedure she found it very difficult to eat and drink. Sodium 128 to 1:30, BUN ranging from 11-7, creatinine 0.82. Reports she is not passing any flatus ,with no bowel movement since her teeth extraction. Tested negative for Coronavirus. Hypoxic, O2 sat 87% on room air currently high 90s to 100% on 2 L nasal cannula. Denies any chest pain, chest pressure, or shortness of breath. Troponin 0.097, 0.151. Evaluated by cardiology, echo pending. EKG reporting normal sinus rhythm. Chest x-ray pending. CT of abdomen and pelvis reporting new multiple hypodense liver lesions suggestive of metastatic disease measuring up to 4 cm, will require further monitoring/workup outpatient, dilated small bowel with fluid suggestive of new mechanical small bowel obstruction, transition point not identified. LFTs within normal limits with the exception of AST mildly elevated ,50. Lipase 311. Afebrile, normal WBC. UA Negative. H emoglobin 14.7, platelets 289, PT 9.8, INR 0.9. Received IV fluids, antiemetics, morphine and PPI, feeling better. 06/10/2021 no bowel movement, patient reports passing flatus .no further nausea or vomiting .reports abdominal pain improving . NG tube on hold at this time as per surgery .clear liquid diet initiated .maintained on nebulized bronchodilators, nicotine patch , maintaining O2 sats in the 90s on room air.Chest x-ray reporting possible right hilar mass, the patient with history of breast cancer. Evaluated by pulmonary, chest CT ordered. Telemetry sinus rhythm, denies chest pain, palpitations, heparin drip discontinued as per cardiology. 06/11/[address] reported confirmation of large right hilar mass with mediastinal and patient up to the level of the thoracic inlet consistent with primary lung neoplasm, consider small cell carcinoma, metastatic disease to the liver redemonstrated.NPO, scheduled for bronchoscopy with lung biopsy. Fluctuating confusion, easily forgets, difficulty at times recalling past events; couldn't remember what her daughter does for a living. Denies chest pain, palpitations or shortness of breath. Maintaining O2 sats in the 90s on room air. Denies further nausea or vomiting, positive bowel movement today, loose, passing flatus. Objective - Vital Signs Vital signs: Vital Signs Temp 97.9 F 06/11/21 04:10 Pulse 86 06/11/21 12:05 Resp 18 06/11/21 08:00 BP 155/83 06/11/21 07:41 Pulse Ox 94 L 06/11/21 04:10 Intake & Output 06/10/21 06/11/21 06/11/21 18:59 06:59 18:59 Intake Total 480 Output Total 300 Balance 180 Intake: Oral 480 Output: Urine 300 Other: Voiding Method Toilet Toilet # Voids 2 - Exam PHYSICAL EXAM: VITAL SIGNS: [As above] GENERAL: Alert and oriented 3,Sitting up in bed, smiling, hard of hearing HEENT: Conjunctivae normal. eyes normal. 3 teeth recently extracted. NECK: No JVD. No thyroid enlargement. No LNs CARDIOVASCULAR: S1, S2 regular. Systolic murmur RESPIRATION: Breath sounds diminished in the bases. No rhonchi or crackles. ABDOMEN: Soft, minimally distended, diffuse mid epigastric tenderness ,No guarding. no masses palpable.Bowel sounds heard. LEGS: No edema. no swelling NERVOUS SYSTEM: Cranial N 2-12 grossly normal. No focal deficits. Strength and sensation grossly intact. Skin: Warm and dry, no rash - Labs CBC & Chem 7: 06/11/21 08:09 06/11/21 08:09 Labs: Abnormal Lab Results - Last 24 Hours (Table) 06/11/21 06/11/21 Range/Units 08:09 08:09 Lymphocytes # 0.7 L (1.0-4.8) k/uL Carbon Dioxide 18 L (22-30) mmol/L Assessment and Plan Assessment: Mechanical ileus, in a patient with 3 teeth extracted 5 days ago, with Dr. Ramirez- oral surgeon; minimal oral intake post procedure, on antibiotics, NSAIDs and opioids, with nausea, dark brown emesis and mid epigastric pain. Reports no flatus, no bowel movement 4-[address] reports dilated small bowel with fluid suggestive of new mechanical small bowel obstruction, transition point not identified. Mildly elevated lipase Right hilar mass confirmed per chest CT, bronchoscopy pending Multiple hypodense liver lesions suggestive of metastatic disease To [address], in a patient with history of left breast CA with lumpectomy, radiation ;further workup, monitoring outpatient Hypovolemic hyponatremia secondary to #1 Metabolic encephalopathy secondary to all the above, possible metastatic, brain CT ordered Hypokalemia, resolved Elevated troponins, without chest pain reported, no acute ischemic event as per Cardiology. EF greater than 55% Moderate mitral regurgitation mild pulmonary hypertension COPD with underlying emphysema Nicotine dependence Occasional alcohol use Arthritis Plan: Continue on current medication regime ,monitoring and symptomatic treatment. Bronchoscopy with biopsy and brain CT ordered. Smoking cessation reinforced. Prognosis guarded given multiple complex medical issues. The impression and plan of care has been dictated as directed. : I performed a history and examination of this patient, discussed the same with the dictator. I agree with the dictator's note ,documented as a scribe. Any additional findings or plans will be noted.
--- NOTE | 2021-06-11 18:19 | XR ---
EXAMINATION TYPE: XR KUB portable DATE OF EXAM: 06/11/2021 COMPARISON: NONE HISTORY: Tube placement TECHNIQUE: 2 view supine FINDINGS: There are multiple dilated gas filled small bowel loops in the mid abdomen. There is some g as in the stomach. NG tube appears to have tip over the greater curvature of the stomach. There is no evidence of free air. IMPRESSION: NG tube is in the stomach. Dilated small bowel suggestive of mechanical small bowel obstr uction.
[2021-06-12] MEDS: SODIUM CHLORIDE 0.9% 1,000 ML IV SCH ×3 (03:14→22:57)
[2021-06-12] MEDS: MORPHINE SULFATE 4 MG/ML SYRINGE IV PRN ×5 (04:38→22:57)
[2021-06-12 06:45] LABS: Basophils # (A) 0.1 k/uL (0-0.2); Basophils % (A) 1 %; Eosinophils # (A) 0.1 k/uL (0-0.7); Eosinophils % (A) 1 %; HCT 40.9 % (34.0-46.0); HGB 13.7 gm/dL (11.4-16.0); Lymphocytes # (A) 0.9 k/uL (1.0-4.8); Lymphocytes % (A) 7 %; MCH 32.7 pg (25.0-35.0); MCHC 33.4 g/dL (31.0-37.0); MCV 97.9 fL (80.0-100.0); Mean Platelet Volume 6.9; Monocytes # (A) 0.7 k/uL (0-1.0); Monocytes % (A) 6 %; Neutrophils # (A) 10.7 k/uL (1.3-7.7); Neutrophils % (A) 84 %; Platelet Count 330 k/uL (150-450); RBC 4.18 m/uL (3.80-5.40); RDW 12.6 % (11.5-15.5); WBC 12.8 k/uL (3.8-10.6)
[2021-06-12 07:02] LABS: ALT 24 U/L (4-34); AST 43 U/L (14-36); African American GFR (CKD) >90 (>60 ml/min/1.73 sqM); Alkaline Phosphatase 41 U/L (38-126); Anion Gap 10 mmol/L; Blood Urea Nitrogen 10 mg/dL (7-17); Calcium 8.5 mg/dL (8.4-10.2); Carbon Dioxide 20 mmol/L (22-30); Chloride 108 mmol/L (98-107); Glucose 101 mg/dL (74-99); Non-African American GFR(CKD) 87 (>60 ml/min/1.73 sqM); Potassium 3.1 mmol/L (3.5-5.1); Sodium 138 mmol/L (137-145); Total Bilirubin 0.7 mg/dL (0.2-1.3); Total Protein 5.9 g/dL (6.3-8.2)
--- NOTE | 2021-06-12 07:17 | XR ---
EXAMINATION TYPE: XR chest 2V DATE OF EXAM: 06/12/2021 COMPARISON: Chest x-ray from one day earlier. HISTORY: NG tube. Status post bronchoscopy. TECHNIQUE: Frontal and lateral views of the chest are obtained. FINDINGS: Stable nasogastric tube projects below diaphragm. There is chronic parenchymal change with persistent right upper lung increased opacity. Right hilar prominence consistent with known mass or n eoplasm redemonstrated. Left lung remains clear. The cardiac silhouette size is remains within normal limits with atherosclerotic thoracic aorta. The osseous structures are intact. IMPRESSION: Chronic changes including right upper lung opacity could reflect infiltrate and/or atele ctasis. Right hilar mass or neoplasm. No significant change from one day earlier.
--- NOTE | 2021-06-12 07:19 | XR ---
EXAMINATION TYPE: XR abdomen 2V DATE OF EXAM: 06/12/2021 CLINICAL HISTORY: Small bowel obstruction. NG tube after bronchoscopy. TECHNIQUE: Supine and upright views of the abdomen are obtained. COMPARISON: Abdominal x-ray from one day earlier. FINDINGS: Stable nasogastric tube projecting below diaphragm. Persistent gaseous prominent small isak l loops with air-fluid levels in the upper to mid abdomen showing less distention versus one day ronald ier. No free air. Moderate narrowing of both hip joints. Moderate multilevel spurring in the thoracol umbar spine redemonstrated. Lung bases remain clear. IMPRESSION: Improving small bowel gaseous dilatation is felt present.
--- NOTE | 2021-06-12 07:44 | CT ---
EXAMINATION TYPE: CT brain wo con DATE OF EXAM: 06/12/2021 HISTORY: altered mental status CT DLP: 1099.4 mGycm. Automated Exposure Control for Dose Reduction was Utilized. TECHNIQUE: CT scan of the head is performed without contrast. COMPARISON: None. FINDINGS: There is no acute intracranial hemorrhage or midline shift identified. There is mild to m oderate diffuse ventricular and sulcal prominence consistent with diffuse cerebral atrophy greatest o nico the bilateral frontal lobes. There is mild to moderate low-attenuation in the periventricular wh ite matter consistent with chronic small vessel ischemic change. The globes are intact and the visua lized sinuses are clear. IMPRESSION: No acute intracranial hemorrhage or midline shift. There is mild to moderate diffuse ce rebral atrophy and chronic small vessel ischemic change noted.
[2021-06-12] MEDS: IPRATROPIUM-ALBUTEROL 3 ML NEB INHALATION SCH ×4 (08:32→19:51)
[2021-06-12] MEDS: POTASSIUM CHLORIDE 10 MEQ in WATER FOR INJECTION 1 100ML.BAG IVPB SCH ×4 (08:58→11:41)
[2021-06-12] MEDS: METOPROLOL TARTRATE 25 MG TAB PO SCH ×2 (08:58→19:30)
[2021-06-12] MEDS: NICOTINE 14MG/24HR PATCH TRANSDERM SCH (08:59)
[2021-06-12] MEDS: PANTOPRAZOLE 40 MG/10 ML VIAL IV SCH (08:59)
[2021-06-12] MEDS: ASPIRIN 81 MG PO SCH (08:59)
[2021-06-12] MEDS: ATORVASTATIN 40 MG TAB PO SCH (08:59)
--- NOTE | 2021-06-12 09:18 | P.PN ---
Subjective Progress Note Date: 06/12/21 Patient seen and examined at bedside. After bronchoscopy yesterday, patient had significant emesis episode of approximately 850 mL of bilious material. Nasogastric tube was placed. Since bronchoscopy until 7 AM, patient had about 700 mL of bilious material. She states that her abdominal discomfort is improved. Han x-ray this morning shows improvement in the bowel distention. She believes she is passing flatus, however no bowel movement over the past 24 hours or so. She is upset that she is not able to eat or drink anything at this time. She states she is hungry. Objective - Vital Signs Vital signs: Vital Signs Temp 98.0 F 06/12/21 03:47 Pulse 102 H 06/12/21 03:47 Resp 20 06/12/21 03:47 BP 164/83 06/12/21 03:47 Pulse Ox 93 L 06/12/21 03:47 Intake & Output 06/11/21 06/12/21 06/12/21 18:59 06:59 18:59 Intake Total 600 Output Total 350 700 Balance 250 -700 Weight 58.967 kg Intake: IV 600 Output: Gastric Drainage 350 700 Other: Voiding Method Toilet Bedside Commode # Voids 1 - Constitutional General appearance: Present: cooperative - Respiratory Details: No difficulty with respiration - Gastrointestinal Gastrointestinal Comment(s): Soft, nontender, mild distention, no rebound, no guarding - Psychiatric Psychiatric: Present: A&O x's 3 - Labs CBC & Chem 7: 06/12/21 06:30 06/12/21 06:30 Labs: Abnormal Lab Results - Last 24 Hours (Table) 06/11/21 06/11/21 06/12/21 Range/Units 08:09 08:09 06:30 WBC 12.8 H (3.8-10.6) k/uL Neutrophils # 10.7 H (1.3-7.7) k/uL Lymphocytes # 0.7 L 0.9 L (1.0-4.8) k/uL Potassium (3.5-5.1) mmol/L Chloride (98-107) mmol/L Carbon Dioxide 18 L (22-30) mmol/L Glucose (74-99) mg/dL AST (14-36) U/L Total Protein (6.3-8.2) g/dL Albumin (3.5-5.0) g/dL 06/12/21 Range/Units 06:30 WBC (3.8-10.6) k/uL Neutrophils # (1.3-7.7) k/uL Lymphocytes # (1.0-4.8) k/uL Potassium 3.1 L (3.5-5.1) mmol/L Chloride 108 H (98-107) mmol/L Carbon Dioxide 20 L (22-30) mmol/L Glucose 101 H (74-99) mg/dL AST 43 H (14-36) U/L Total Protein 5.9 L (6.3-8.2) g/dL Albumin 3.0 L (3.5-5.0) g/dL Assessment and Plan Plan: 75-year-old female with new found hilar mass and is currently status post bronchoscopy for biopsy. Patient is being maintained with nasogastric decompression at low intermittent suction. Based on workup, there is concern for liver metastasis. On exam, patient has mild distention and has hypoactive bowel sounds. Potassium is 3.1. Patient was showing signs of bowel function yesterday with flatus and bowel movement, however no bowel movement over the past 24 hours. It is difficult to interpret whether patient is having an ileus episode or a true obstruction episode. Abdominal x-ray showing improvement and bowel distention. We will continue with the nasogastric tube at this time at low intermittent suction while potassium is being treated as this may be a source of ileus. If no resolution, there can be concern for peritoneal seeding of metastasis that could be causing obstruction. If no resolution, I would recommend small bowel series prior to any surgical intervention for further evaluation. Decision will be made in the next 24-48 hours based on patient's clinical progress.
--- NOTE | 2021-06-12 13:43 | P.PN ---
Subjective Progress Note Date: 06/12/21 75-year-old female patient I'm seeing her for a right hilar mass and possibility of a malignancy. The patient had ptosis fraction approximately 5 days ago. Since then, the patient started having some abdominal pain and nausea and emesis. The patient stated that she had not had any bowel movement appro ximately 3-4 days prior to her hospital admission. She was passing flatus. No nausea. No emesis. She came into the hospital the CAT scan of the abdomen was done and was concerning for a small bowel obstruction along with multiple hypodense liver lesions suggestive of metastatic disease. Chest x-ray also showed a right hilar mass. The patient is also known to have COPD and previous history of breast cancer. She has undergone a left breast lumpectomy followed by radiation therapy. The pulmonary consultation was requested accordingly. Initially the patient was kept nothing by mouth and currently the patient is allowed to take some clear liquid diet. NG tube has not been placed. Note that the patient also had a low dose of the chest for lung cancer screening back in 2019 and back then there was no evidence of any malignancy. The patient smokes approximately half to 1 pack of cigarettes and she's been smoking for many years. She has been smoking for at least 50 years for now. She does not use oxygen. She does not use any form of respiratory medications or inhalers. She has taken COVID 19 vaccination 2. He COVID 19 testing was negative during this current admission. The patient is seen today for very fourth 2021 in follow-up on the selective care unit. She is currently awake and alert in no acute distress. Resting comfortably in bed. She has been having bowel movements. She is passing gas. Abdominal discomfort has somewhat subsided. She is maintaining good O2 saturation 90s on room air. She's been afebrile. Hemodynamically stable. White count 10.6. Hematoma 13.1. INR 0.9. Sodium 134. Potassium 3.6. Bicarb 21. Creatinine 0.77. She is continued on bronchodilators, Protonix, NicoDerm patch. 0.9 normal saline at 110 ML's per hour. Heparin drip was discontinued. On 06/12/2021, the patient is stable. NG tube is in place. Note that since the NG tube was placed, a total of 700 mL of output was obtained from the patient. She is nothing by mouth. Abdomen is less distended. This could be ileus versus mechanical small bowel obstruction. General surgeries on the case. Meanwhile, I performed this patient's procedure successfully yesterday. I was able to obtain biopsies of the distal masses/lymphadenopathy and I also biopsied with a right upper lobe hilar mass. The patient is not having any hemoptysis. No cellular any respiratory distress. The patient has a white cell count of 12.8 with hemoglobin 13.7. Electrolytes are normal with a serum bicarb of 20. Creatinine is at 0.6. No other significant events otherwise for now. Objective - Vital Signs Vital signs: Vital Signs Temp 98.0 F 06/12/21 12:00 Pulse 80 06/12/21 12:00 Resp 18 06/12/21 12:00 BP 187/87 06/12/21 12:00 Pulse Ox 95 06/12/21 12:00 Intake & Output 06/11/21 06/12/21 06/12/21 18:59 06:59 18:59 Intake Total 600 Output Total 350 700 Balance 250 -700 Weight 58.967 kg Intake: IV 600 Output: Gastric Drainage 350 700 Other: Voiding Method Toilet Bedside Commode Bedside Commode # Voids 1 2 - Exam GENERAL EXAM: Alert, pleasant 75-year-old female patient, on room air, fairly comfortable in no apparent distress. The patient has NG tube in place. Not in acute respiratory distress HEAD: Normocephalic. EYES: Normal reaction of pupils, equal size. NOSE: Clear with pink turbinates. THROAT: No erythema or exudates. NECK: No masses, no JVD. CHEST: No chest wall deformity. LUNGS: Equal air entry with no crackles, wheeze, rhonchi or dullness. CVS: S1 and S2 normal with no audible murmur, regular rhythm. ABDOMEN: Discomfort on palpation. Positive hepatomegaly, normal bowel sounds, no guarding or rigidity. The bowel sounds are hypoactive. No direct tenderness. SPINE: No scoliosis or deformity SKIN: No rashes CENTRAL NERVOUS SYSTEM: No focal deficits, tone is normal in all 4 extremities. EXTREMITIES: There is no peripheral edema. No clubbing, no cyanosis. Peripheral pulses are intact. - Labs CBC & Chem 7: 06/12/21 06:30 06/12/21 06:30 Labs: Abnormal Lab Results - Last 24 Hours (Table) 06/12/21 06/12/21 Range/Units 06:30 06:30 WBC 12.8 H (3.8-10.6) k/uL Neutrophils # 10.7 H (1.3-7.7) k/uL Lymphocytes # 0.9 L (1.0-4.8) k/uL Potassium 3.1 L (3.5-5.1) mmol/L Chloride 108 H (98-107) mmol/L Carbon Dioxide 20 L (22-30) mmol/L Glucose 101 H (74-99) mg/dL AST 43 H (14-36) U/L Total Protein 5.9 L (6.3-8.2) g/dL Albumin 3.0 L (3.5-5.0) g/dL Assessment and Plan Plan: 1 right hilar mass with extensive adenopathy and liver metastases. Biopsies were obtained. Awaiting final pathology, highly suspicious for lung cancer. 2 COPD with emphysematous changes in the upper lobes bilaterally 3 metastatic liver lesions, consider underlying malignancy, consider underlying primary lung cancer 4 ileus versus partial small bowel obstruction, also consider peritoneal carcinomatosis with significant anatomic obstruction.. Please refer to the CAT scan of the abdomen. General surgery on the case, the patient's stomach has been decompressed with an NG tube. 5 abnormal troponin with mild elevation without any evidence of an acute ischemic event. Cardiology been in the case 6 hyperlipidemia 7 remote history of breast cancer on the left with a previous lumpectomy followed by radiation therapy followed by tamoxifen treatment for a total of 5 years. 8 history of smoking, more than [id number]. Currently on a nicotine patch. Plan Keep the NG tube in place He the patient nothing by mouth for now Awaiting results of the biopsy Gen. surgery consultation regarding partial abdominal obstruction We'll continue to follow. Prognosis poor especially the patient will end up having a metastatic carcinoma.
--- NOTE | 2021-06-12 15:26 | P.PN ---
Subjective Progress Note Date: 06/12/21 Principal diagnosis: Nausea,vomiting, and diarrhea. Bowel obstruction 06/08/2021 patient presented emergency room with chief complaints of abdominal pain, nausea with dark brown emesis. Approximately 6 days prior to this patient had 3 teeth extracted due to gingivitis. Several days after she started developing the symptoms of abdominal pain, constipation, nausea and vomiting of dark brown emesis. She has a history of nicotine dependence and [employer] she's currently smokes a half a pack a day, hiatal hernia with midepigastric pain, heart appearing, left breast cancer with lumpectomy and radiation, and arthritis. Initial set of vitals from the patient to have a blood pressure 156/91, she is afebrile 97.9, pulse rate of 92, respiratory rate of 20, maintaining oxygen saturation 96% on room air. Initial lab work revealed WBC count 7.1, hemoglobin 14.7, hematocrit 42.3, platelet count 289, sodium 128, potassium 3.6, VIOLET of 24, creatinine 0.2, AST of 50, ELT of 27, troponins were noted to be high at 0.097 and 0.130, amylase 52, lipase of 311. She was found to be negative for Covid via PCR test. Currently today to 09/24/2021 patient is resting comfortably in bed at this time with an NG tube in place draining dark-colored liquid. She denies any difficulty breathing, shortness of breath, chest pain or pressure, nausea, vomiting or diarrhea at this time. She is currently on room air maintaining oxygen saturation 93-96%, blood pressure 155/92, respiratory rate is 16, pulse rate of 89, and afebrile 99.1. Most recent blood work revealed WBC count 12.8, platelet count 3:30, hemoglobin 13.7, hematocrit of 40.9. Chemistry reveals a sodium 138, potassium 3.1 (will be on a potassium protocol for replacement), VIOLET of 10 and creatinine 0.66, AST is improving to 43, ELT of 24. 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 Reid. Objective - Vital Signs Vital signs: Vital Signs Temp 98.0 F 06/12/21 12:00 Pulse 80 02/05/22 13:36 Resp 18 06/12/21 13:36 BP 187/87 06/12/21 12:00 Pulse Ox 95 06/12/21 12:00 Intake & Output 06/11/21 06/12/21 06/12/21 18:59 06:59 18:59 Intake Total 600 800 Output Total 350 700 Balance 250 -700 800 Weight 58.967 kg Intake: IV 600 Intake, IV Titration 800 Amount Potassium Chloride 10 meq 800 In Water For Injection 1 100ml.bag @ 100 mls/hr IVPB Q1HR [facility] Rx#: [id number] Output: Gastric Drainage 350 700 Other: Voiding Method Toilet Bedside Commode Bedside Commode # Voids 1 2 - Exam GENERAL: Well-appearing, well-nourished and in no acute distress. HEAD: Atraumatic, normocephalic. EYES: Pupils equal round and reactive to light, extraocular movements intact, sclera anicteric, conjunctiva are normal. ENT:nares patent, oropharynx clear without exudates. Moist mucous membranes. NG tube and right knee repair to suction with dark drainage NECK: Normal range of motion, supple without lymphadenopathy or JVD, no thyromegaly LUNGS: Breath sounds clear to auscultation bilaterally and equal. No wheezes rales or rhonchi. HEART: Regular rate and rhythm without murmurs, rubs or gallops.S1S2 Normal ABDOMEN: Mildly distended with generalized tenderness of mid abdomen and upper left quadrant, hypoactive bowel sounds. No guarding, no rigidity. No masses appreciated. EXTREMITIES: Normal range of motion, no pitting or edema. No clubbing or cyano sis. NEUROLOGICAL: Cranial nerves II through XII grossly intact. Normal speech, normal gait. PSYCH: Normal mood, normal affect. SKIN: Warm, Dry, normal turgor, no rashes or lesions noted. - Labs CBC & Chem 7: 06/12/21 06:30 06/12/21 06:30 Labs: Abnormal Lab Results - Last 24 Hours (Table) 06/12/21 06/12/21 Range/Units 06:30 06:30 WBC 12.8 H (3.8-10.6) k/uL Neutrophils # 10.7 H (1.3-7.7) k/uL Lymphocytes # 0.9 L (1.0-4.8) k/uL Potassium 3.1 L (3.5-5.1) mmol/L Chloride 108 H (98-107) mmol/L Carbon Dioxide 20 L (22-30) mmol/L Glucose 101 H (74-99) mg/dL AST 43 H (14-36) U/L Total Protein 5.9 L (6.3-8.2) g/dL Albumin 3.0 L (3.5-5.0) g/dL Assessment and Plan (1) Neoplasm of hilus of right lung Current Visit: Yes Status: Acute Code(s): D49.1 - NEOPLASM OF UNSPECIFIED BEHAVIOR OF RESPIRATORY SYSTEM SNOMED Code(s): 088376366 (2) Ileus Current Visit: Yes Status: Acute Code(s): K56.7 - ILEUS, UNSPECIFIED SN OMED Code(s): 197664016 (3) Liver lesion Current Visit: Yes Status: Acute Code(s): K76.9 - LIVER DISEASE, UNSPECIFIED SNOMED Code(s): 085849936 (4) Elevated lipase Current Visit: Yes Status: Acute Code(s): R74.8 - ABNORMAL LEVELS OF OTHER SERUM ENZYMES SNOMED Code(s): 854122839 (5) Elevated AST (SGOT) Current Visit: Yes Status: Acute Code(s): R74.01 - ELEVATION OF LEVELS OF LIVER TRANSAMINASE LEVELS SNOMED Code(s): 616430217 (6) COPD (chronic obstructive pulmonary disease) Current Visit: Yes Status: Acute Code(s): J44.9 - CHRONIC OBSTRUCTIVE PULMONARY DISEASE, UNSPECIFIED SNOMED Code(s): 95726135 (7) Hypokalemia Current Visit: Yes Status: Acute Code(s): E87.6 - HYPOKALEMIA SNOMED Code(s): 95100308 (8) Nicotine dependence Current Visit: Yes Status: Acute Code(s): F17.200 - NICOTINE DEPENDENCE, UNSPECIFIED, UNCOMPLICATED SNOMED Code(s): 78439297 (9) Abdominal pain Current Visit: Yes Status: Acute Code(s): R10.9 - UNSPECIFIED ABDOMINAL PAIN SNOMED Code(s): 12640572 (10) Small bowel obstruction Current Visit: Yes Status: Acute Code(s): K56.609 - UNSP INTESTNL OBST, UNSP TO PARTIAL VERSUS COMPLETE OBST SNOMED Code(s): 367073433 (11) Vomiting Current Visit: Yes Status: Acute Code(s): R11.10 - VOMITING, UNSPECIFIED SNOMED Code(s): 000147815 Plan: Continue current medication regimen Continue monitor vitals and labs treated accordingly Follow with pulmonology regarding Hillar mass Follow with surgery regarding abdominal pain and ileus Smoking cessation reinforced We'll continue to follow closely Time with Patient: Greater than 30
[2021-06-13] MEDS: MORPHINE SULFATE 4 MG/ML SYRINGE IV PRN ×5 (03:00→21:10)
[2021-06-13 08:23] LABS: Basophils % (A) 0 %; Eosinophils # (A) 0.1 k/uL (0-0.7); Eosinophils % (A) 1 %; HCT 40.9 % (34.0-46.0); HGB 13.6 gm/dL (11.4-16.0); Lymphocytes % (A) 9 %; MCH 32.6 pg (25.0-35.0); MCHC 33.3 g/dL (31.0-37.0); MCV 97.9 fL (80.0-100.0); Monocytes # (A) 0.5 k/uL (0-1.0); Monocytes % (A) 5 %; Neutrophils # (A) 8.8 k/uL (1.3-7.7); Neutrophils % (A) 83 %; Platelet Count 335 k/uL (150-450); RBC 4.18 m/uL (3.80-5.40); RDW 13.2 % (11.5-15.5); WBC 10.7 k/uL (3.8-10.6)
[2021-06-13 08:38] LABS: ALT 24 U/L (4-34); AST 45 U/L (14-36); African American GFR (CKD) >90 (>60 ml/min/1.73 sqM); Albumin 2.9 g/dL (3.5-5.0); Alkaline Phosphatase 39 U/L (38-126); Anion Gap 12 mmol/L; Blood Urea Nitrogen 6 mg/dL (7-17); Calcium 8.2 mg/dL (8.4-10.2); Carbon Dioxide 22 mmol/L (22-30); Chloride 103 mmol/L (98-107); Glucose 77 mg/dL (74-99); Magnesium 1.7 mg/dL (1.6-2.3); Non-African American GFR(CKD) 89 (>60 ml/min/1.73 sqM); Potassium 2.9 mmol/L (3.5-5.1); Sodium 137 mmol/L (137-145); Total Bilirubin 0.7 mg/dL (0.2-1.3); Total Protein 5.7 g/dL (6.3-8.2)
[2021-06-13] MEDS: IPRATROPIUM-ALBUTEROL 3 ML NEB INHALATION SCH ×4 (08:56→18:56)
--- NOTE | 2021-06-13 10:04 | P.PN ---
Subjective Progress Note Date: 06/13/21 Patient seen and examined at bedside. Requesting removal of nasogastric tube. States that she is hungry. She states that she believes she has had flatus, however is unsure. She states her last bowel movement was 2 days ago. Denies abdominal pain. Objective - Vital Signs Vital signs: Vital Signs Temp 97.0 F L 06/13/21 09:40 Pulse 103 H 06/13/21 09:40 Resp 20 06/13/21 09:40 BP 168/93 06/13/21 09:40 Pulse Ox 97 06/13/21 09:40 Intake & Output 06/12/21 06/13/21 06/13/21 18:59 06:59 18:59 Intake Total 800 Output Total 150 100 500 Balance 650 -100 -500 Intake: Intake, IV Titration 800 Amount Potassium Chloride 10 meq 800 In Water For Injection 1 100ml.bag @ 100 mls/hr IVPB Q1HR [facility] Rx#: [id number] Output: Gastric Drainage 150 100 Urine 500 Other: Voiding Method Bedside Commode Bedside Commode Bedside Commode # Voids 1 1 - Constitutional General appearance: Present: cooperative, no acute distress - Gastrointestinal Gastrointestinal Comment(s): Soft, nontender, mild distention, no rebound, no guarding - Labs CBC & Chem 7: 06/13/21 07:15 06/13/21 07:15 Labs: Abnormal Lab Results - Last 24 Hours (Table) 06/13/21 06/13/21 Range/Units 07:15 07:15 WBC 10.7 H (3.8-10.6) k/uL Neutrophils # 8.8 H (1.3-7.7) k/uL Potassium 2.9 L (3.5-5.1) mmol/L BUN 6 L (7-17) mg/dL Calcium 8.2 L (8.4-10.2) mg/dL AST 45 H (14-36) U/L Total Protein 5.7 L (6.3-8.2) g/dL Albumin 2.9 L (3.5-5.0) g/dL Assessment and Plan Plan: 75-year-old female with newfound hilar mass. She also was found to have ileus versus small bowel obstruction. NG output has significantly decreased from the previous 24 hours with overnight output of 500 mL. Difficult to obtain bowel function history as the patient is unclear and unsure of the last flatus. We'll obtain abdominal x-ray for further evaluation. Potassium is 2.9 today, would recommend treating electrolyte abnormalities for treatment of ileus. Continue with nasogastric tube at this time.
[2021-06-13] MEDS: POTASSIUM CHLORIDE ER 20 MEQ TAB.ER PO SCH ×3 (10:24→16:27)
[2021-06-13] MEDS: ATORVASTATIN 40 MG TAB PO SCH (10:24)
[2021-06-13] MEDS: ASPIRIN 81 MG PO SCH (10:24)
[2021-06-13] MEDS: METOPROLOL TARTRATE 25 MG TAB PO SCH ×2 (10:24→21:10)
[2021-06-13] MEDS: PANTOPRAZOLE 40 MG/10 ML VIAL IV SCH (10:25)
[2021-06-13] MEDS: NICOTINE 14MG/24HR PATCH TRANSDERM SCH (10:25)
--- NOTE | 2021-06-13 11:01 | XR ---
EXAMINATION TYPE: XR abdomen complete w decub DATE OF EXAM: 06/13/2021 CLINICAL HISTORY: Pain and ileus. TECHNIQUE: Supine, upright, and left side down lateral decubitus views of the abdomen are obtained. COMPARISON: Abdominal x-ray series from 1 day earlier FINDINGS: Stable positioning of nasogastric tube. Persisting gas prominent and dilated small bowel lo ops with air-fluid levels in the central abdomen. Small amount of nondistended gas in the periphery r edemonstrated. No free air. Lung bases remain clear. Multilevel spurring throughout the visualized sp ine redemonstrated IMPRESSION: Overall stable findings. Findings could reflect mid to distal small bowel obstruction re main present.
--- NOTE | 2021-06-13 12:36 | P.PN ---
Subjective Progress Note Date: 06/13/21 Principal diagnosis: Mass to lung probable bronchogenic carcinoma waiting on path report discussed same with patient, patient is awake alert and oriented 3 vital signs are stable NG tube is in place secondary to a mechanical ileus. Liver also appears to have multiple metastases. This was also discussed with patient. Mrs. Flynn is awake alert oriented 3 vital signs stable patient is afebrile NG tube in place abdomen is slightly distended patient states she is not passing gas not belching states she is not currently significantly uncomfortable persistent mechanical ileus noted continued decompression Objective - Vital Signs Vital signs: Vital Signs Temp 97.0 F L 06/13/21 09:40 Pulse 103 H 06/13/21 09:40 Resp 20 06/13/21 09:40 BP 168/93 06/13/21 09:40 Pulse Ox 97 06/13/21 09:40 Intake & Output 06/12/21 06/13/21 06/13/21 18:59 06:59 18:59 Intake Total 800 Output Total 150 100 500 Balance 650 -100 -500 Intake: Intake, IV Titration 800 Amount Potassium Chloride 10 meq 800 In Water For Injection 1 100ml.bag @ 100 mls/hr IVPB Q1HR [facility] Rx#: [id number] Output: Gastric Drainage 150 100 Urine 500 Other: Voiding Method Bedside Commode Bedside Commode Bedside Commode # Voids 1 1 - Exam General: [Patient awake, alert and oriented times 3. Patient in no acute distress.] HEENT: [PERRL. EOMI. No pharyngeal erythema or exudate.] Neck: [No adenopathy.] Cardiac: [Heart regular in rate and rhythm. No S3. No S4. No clicks, rubs. No murmur.] Lungs: [Clear to auscultation bilaterally.] Abdomen: [No mass. No organomegaly. Bowel sounds presnt and normoactive in all 4 quadrants.] Extremes: [No edema no cyanosis no claudication normal pulses] : [] Musculoskeletal: [No joint erythema, edema or tenderness.] Skin: [No rash.] Neurologic: [No lateralizing deficits. CN II - XII grossly intact.] Lymphatic: [No adenopathy.] - Labs CBC & Chem 7: 06/13/21 07:15 06/13/21 07:15 Labs: Abnormal Lab Results - Last 24 Hours (Table) 06/13/21 06/13/21 Range/Units 07:15 07:15 WBC 10.7 H (3.8-10.6) k/uL Neutrophils # 8.8 H (1.3-7.7) k/uL Potassium 2.9 L (3.5-5.1) mmol/L BUN 6 L (7-17) mg/dL Calcium 8.2 L (8.4-10.2) mg/dL AST 45 H (14-36) U/L Total Protein 5.7 L (6.3-8.2) g/dL Albumin 2.9 L (3.5-5.0) g/dL Assessment and Plan (1) Abdominal pain Current Visit: Yes Status: Acute Code(s): R10.9 - UNSPECIFIED ABDOMINAL PAIN SNOMED Code(s): 82681219 (2) COPD (chronic obstructive pulmonary disease) Current Visit: Yes Status: Acute Code(s): J44.9 - CHRONIC OBSTRUCTIVE PULMONARY DISEASE, UNSPECIFIED SNOMED Code(s): 59993991 (3) Elevated AST (SGOT) Current Visit: Yes Status: Acute Code(s): R74.01 - ELEVATION OF LEVELS OF LIVER TRANSAMINASE LEVELS SNOMED Code(s): 548861037 (4) Elevated lipase Current Visit: Yes Status: Acute Code(s): R74.8 - ABNORMAL LEVELS OF OTHER SERUM ENZYMES SNOMED Code(s): 489019105 (5) Hypokalemia Current Visit: Yes Status: Acute Code(s): E87.6 - HYPOKALEMIA SNOMED Code(s): 36102981 (6) Ileus Current Visit: Yes Status: Acute Code(s): K56.7 - ILEUS, UNSPECIFIED SNOMED Code(s): 927944674 (7) Liver lesion Current Visit: Yes Status: Acute Code(s): K76.9 - LIVER DISEASE, UNSPECIFIED SNOMED Code(s): 854577891 (8) Neoplasm of hilus of right lung Current Visit: Yes Status: Acute Code(s): D49.1 - NEOPLASM OF UNSPECIFIED BE HAVIOR OF RESPIRATORY SYSTEM SNOMED Code(s): 988388667 Plan: Chemical ileus noted, NG tube in place Hypokalemia currently on potassium protocol with replacement IV fluids NG tube in place for decompression Recent bronchoscopy likely neoplasm waiting on path report Liver masses noted probably metastatic in nature Discussed this with patient We'll make recommendation for oncology Time with Patient: Greater than 30
--- NOTE | 2021-06-13 14:35 | P.PN ---
Subjective Progress Note Date: 06/13/21 75-year-old female patient I'm seeing her for a right hilar mass and possibility of a malignancy. The patient had ptosis fraction approximately 5 days ago. Since then, the patient started having some abdominal pain and nausea and emesis. The patient stated that she had not had any bowel movement appro ximately 3-4 days prior to her hospital admission. She was passing flatus. No nausea. No emesis. She came into the hospital the CAT scan of the abdomen was done and was concerning for a small bowel obstruction along with multiple hypodense liver lesions suggestive of metastatic disease. Chest x-ray also showed a right hilar mass. The patient is also known to have COPD and previous history of breast cancer. She has undergone a left breast lumpectomy followed by radiation therapy. The pulmonary consultation was requested accordingly. Initially the patient was kept nothing by mouth and currently the patient is allowed to take some clear liquid diet. NG tube has not been placed. Note that the patient also had a low dose of the chest for lung cancer screening back in 2019 and back then there was no evidence of any malignancy. The patient smokes approximately half to 1 pack of cigarettes and she's been smoking for many years. She has been smoking for at least 50 years for now. She does not use oxygen. She does not use any form of respiratory medications or inhalers. She has taken COVID 19 vaccination 2. He COVID 19 testing was negative during this current admission. The patient is seen today for very fourth 2021 in follow-up on the selective care unit. She is currently awake and alert in no acute distress. Resting comfortably in bed. She has been having bowel movements. She is passing gas. Abdominal discomfort has somewhat subsided. She is maintaining good O2 saturation 90s on room air. She's been afebrile. Hemodynamically stable. White count 10.6. Hematoma 13.1. INR 0.9. Sodium 134. Potassium 3.6. Bicarb 21. Creatinine 0.77. She is continued on bronchodilators, Protonix, NicoDerm patch. 0.9 normal saline at 110 ML's per hour. Heparin drip was discontinued. On 06/12/2021, the patient is stable. NG tube is in place. Note that since the NG tube was placed, a total of 700 mL of output was obtained from the patient. She is nothing by mouth. Abdomen is less distended. This could be ileus versus mechanical small bowel obstruction. General surgeries on the case. Meanwhile, I performed this patient's procedure successfully yesterday. I was able to obtain biopsies of the distal masses/lymphadenopathy and I also biopsied with a right upper lobe hilar mass. The patient is not having any hemoptysis. No cellular any respiratory distress. The patient has a white cell count of 12.8 with hemoglobin 13.7. Electrolytes are normal with a serum bicarb of 20. Creatinine is at 0.6. No other significant events otherwise for now. 06/13/2021, the patient is comfortable in terms of her breathing. The patient undergone biopsy of the lung and the results pending for now with a high suspicion for lung cancer. This is likely metastatic in nature. Meanwhile, the patient is also having issues with bowel obstruction. General surgeries on the case. NG tube is in place. The output from the NG tube has dropped over the past 24 hours. Patient is passing some limited amount of flatus. Abdomen slightly distended. General surgeries on the case and there weren't to put the patient into bowel rest and gastric decompression for another 24 hours. White cell count is at 10.7 with a hemoglobin of 15.6, BUN is at 6 with a creatinine of 0.6 and the sodium level is at 137. She is awake and alert. She is following commands. CAT scan of the brain was also negative for any metastases. Flat some of the abdomen today shows stable findings and the findings with reflect mid to distal small bowel obstruction Objective - Vital Signs Vital signs: Vital Signs Temp 98.1 F 06/13/21 11:40 Pulse 77 06/13/21 11:40 Resp 16 06/13/21 11:40 BP 182/86 06/13/21 11:40 Pulse Ox 93 L 06/13/21 11:40 Intake & Output 06/12/21 06/13/21 06/13/21 18:59 06:59 18:59 Intake Total 800 Output Total 150 100 500 Balance 650 -100 -500 Intake: Intake, IV Titration 800 Amount Potassium Chloride 10 meq 800 In Water For Injection 1 100ml.bag @ 100 mls/hr IVPB Q1HR BRENDA Rx#: [id number] Output: Gastric Drainage 150 100 Urine 500 Other: Voiding Method Bedside Commode Bedside Commode Bedside Commode # Voids 1 1 - Exam GENERAL EXAM: Alert, pleasant 75-year-old female patient, on room air, fairly comfortable in no apparent distress. The patient has NG tube in place. Not in acute respiratory distress, the patient has an NG tube in place HEAD: Normocephalic. EYES: Normal reaction of pupils, equal size. NOSE: Clear with pink turbinates. THROAT: No erythema or exudates. NECK: No masses, no JVD. CHEST: No chest wall deformity. LUNGS: Equal air entry with no crackles, wheeze, rhonchi or dullness. CVS: S1 and S2 normal with no audible murmur, regular rhythm. ABDOMEN: Discomfort on palpation. Positive hepatomegaly, normal bowel sounds, no guarding or rigidity. The bowel sounds are hypoactive. No direct tenderness. Abdomen is slightly distended and the bowel sounds are hypoactive. SPINE: No scoliosis or deformity SKIN: No rashes CENTRAL NERVOUS SYSTEM: No focal deficits, tone is normal in all 4 extremities. EXTREMITIES: There is no peripheral edema. No clubbing, no cyanosis. Peripheral pulses are intact. - Labs CBC & Chem 7: 06/13/21 07:15 06/13/21 07:15 Labs: Abnormal Lab Results - Last 24 Hours (Table) 06/13/21 06/13/21 Range/Units 07:15 07:15 WBC 10.7 H (3.8-10.6) k/uL Neutrophils # 8.8 H (1.3-7.7) k/uL Potassium 2.9 L (3.5-5.1) mmol/L BUN 6 L (7-17) mg/dL Calcium 8.2 L (8.4-10.2) mg/dL AST 45 H (14-36) U/L Total Protein 5.7 L (6.3-8.2) g/dL Albumin 2.9 L (3.5-5.0) g/dL Assessment and Plan Plan: 1 right hilar mass with extensive adenopathy and liver metastases. Biopsies were obtained. Awaiting final pathology, highly suspicious for lung cancer. Biopsy results are still pending for now 2 COPD with emphysematous changes in the upper lobes bilaterally 3 metastatic liver lesions, consider underlying malignancy, consider underlying primary lung cancer 4 ileus versus partial small bowel obstruction, also consider peritoneal carcinomatosis with significant anatomic obstruction.. Please refer to the CAT scan of the abdomen. General surgery on the case, the patient's stomach has been decompressed with an NG tube. The patient is still having output although less compared to yesterday from the NG tube. Abdominal x-ray series is still showing prominent and dilated small bowel loops with air-fluid levels in the nilay tral abdomen consistent with ileus versus small bowel obstruction. General surgeries on the case. NG tube is in place. No significant leukocytosis 5 abnormal troponin with mild elevation without any evidence of an acute ischemic event. Cardiology been in the case 6 hyperlipidemia 7 remote history of breast cancer on the left with a previous lumpectomy followed by radiation therapy followed by tamoxifen treatment for a total of 5 years. 8 history of smoking, more than [id number]. Currently on a nicotine patch. Plan Keep the NG tube in place for another 24 hours and keep the patient nothing by mouth for now Awaiting the results of the lung biopsy Gen. surgery consultation regarding partial abdominal obstruction We'll continue to follow. Prognosis poor especially the patient will end up having a metastatic carcinoma.
[2021-06-13] MEDS: SODIUM CHLORIDE 0.9% 1,000 ML IV SCH (16:27)
[2021-06-13] MEDS: GABAPENTIN 400 MG CAP PO SCH (21:10)
[2021-06-14] MEDS: MORPHINE SULFATE 4 MG/ML SYRINGE IV PRN ×6 (01:04→21:10)
[2021-06-14] MEDS: SODIUM CHLORIDE 0.9% 1,000 ML IV SCH ×3 (02:55→23:03)
[2021-06-14] MEDS: IPRATROPIUM-ALBUTEROL 3 ML NEB INHALATION SCH ×4 (09:24→20:59)
--- NOTE | 2021-06-14 09:57 | P.PN ---
Subjective Progress Note Date: 06/14/21 Patient seen and examined at bedside. Denies abdominal pain. States she has had some flatus. Denies bowel movement. Denies nausea or vomiting. Nasogastric tube with only approximately 100 cc of output overnight. Objective - Vital Signs Vital signs: Vital Signs Temp 97.9 F 06/14/21 04:00 Pulse 109 H 06/14/21 04:00 Resp 16 06/14/21 04:00 BP 161/97 06/14/21 04:00 Pulse Ox 95 06/14/21 04:00 Intake & Output 06/13/21 06/14/21 06/14/21 18:59 06:59 18:59 Intake Total 10 Output Total 1100 Balance -1100 10 Intake: IV 10 Invasive Line 2 10 Output: Urine 1100 Other: Voiding Method Bedside Commode Bedside Commode # Voids 1 1 - Constitutional General appearance: Present: cooperative - Respiratory Details: No difficulty with respiration - Gastrointestinal Gastrointestinal Comment(s): Soft, nontender, nondistended, no rebound, no guarding - Psychiatric Psychiatric: Present: A&O x's 3 - Labs CBC & Chem 7: 06/13/21 07:15 06/13/21 07:15 Assessment and Plan Plan: 75-year-old female with ileus versus small bowel obstruction. Patient is beginning to have some flatus. I would recommend clamping the nasogastric tube and beginning clear liquid diet as her abdominal exam is also improved with distention. We will see how the patient tolerates this prior to removing nasogastric tube. Continue to treat potassium deficiency to improve ileus.
[2021-06-14 09:58] LABS: Basophils # (A) 0.1 k/uL (0-0.2); Basophils % (A) 1 %; Eosinophils # (A) 0.1 k/uL (0-0.7); Eosinophils % (A) 0 %; HCT 42.3 % (34.0-46.0); HGB 13.6 gm/dL (11.4-16.0); Lymphocytes # (A) 0.7 k/uL (1.0-4.8); Lymphocytes % (A) 6 %; MCH 31.3 pg (25.0-35.0); MCHC 32.2 g/dL (31.0-37.0); MCV 97.2 fL (80.0-100.0); Monocytes # (A) 0.5 k/uL (0-1.0); Monocytes % (A) 4 %; Neutrophils # (A) 10.3 k/uL (1.3-7.7); Neutrophils % (A) 88 %; Platelet Count 344 k/uL (150-450); RBC 4.35 m/uL (3.80-5.40); RDW 13.3 % (11.5-15.5); WBC 11.8 k/uL (3.8-10.6)
[2021-06-14 10:08] LABS: African American GFR (CKD) >90 (>60 ml/min/1.73 sqM); Anion Gap 10 mmol/L; Blood Urea Nitrogen 8 mg/dL (7-17); Calcium 8.4 mg/dL (8.4-10.2); Carbon Dioxide 23 mmol/L (22-30); Chloride 104 mmol/L (98-107); Glucose 88 mg/dL (74-99); Non-African American GFR(CKD) 88 (>60 ml/min/1.73 sqM); Potassium 3.1 mmol/L (3.5-5.1); Sodium 137 mmol/L (137-145)
[2021-06-14] MEDS: METOPROLOL TARTRATE 25 MG TAB PO SCH ×2 (10:12→20:00)
[2021-06-14] MEDS: ASPIRIN 81 MG PO SCH (10:12)
[2021-06-14] MEDS: LORATADINE 10 MG TAB PO SCH (10:12)
[2021-06-14] MEDS: PRAVASTATIN SODIUM 80 MG TAB PO SCH (10:12)
[2021-06-14] MEDS: PANTOPRAZOLE 40 MG/10 ML VIAL IV SCH (10:12)
[2021-06-14] MEDS: NICOTINE 14MG/24HR PATCH TRANSDERM SCH (11:55)
--- NOTE | 2021-06-14 11:58 | P.PN ---
Subjective Progress Note Date: 06/14/21 This is a pleasant 75-year-old female, Covid vaccinated X 2, hard of hearing, left breast cancer with lumpectomy/radiation, arthritis with past medical history of nicotine dependence-has smoked since she was a teen and is currently at a half pack per day, hiatal hernia presented to the ER with mid epigastric abdominal pain, constipation, nausea, vomiting of dk. brown emesis. Patient reports on last Monday she had [address] Ramirez secondary to gingivitis. Postprocedure she found it very difficult to eat and drink. Sodium 128 to 1:30, BUN ranging from 11-7, creatinine 0.82. Reports she is not passing any flatus ,with no bowel movement since her teeth extraction. Tested negative for Coronavirus. Hypoxic, O2 sat 87% on room air currently high 90s to 100% on 2 L nasal cannula. Denies any chest pain, chest pressure, or shortness of breath. Troponin 0.097, 0.151. Evaluated by cardiology, echo pending. EKG reporting normal sinus rhythm. Chest x-ray pending. CT of abdomen and pelvis reporting new multiple hypodense liver lesions suggestive of metastatic disease measuring up to 4 cm, will require further monitoring/workup outpatient, dilated small bowel with fluid suggestive of new mechanical small bowel obstruction, transition point not identified. LFTs within normal limits with the exception of AST mildly elevated ,50. Lipase 311. Afebrile, normal WBC. UA Negative. H emoglobin 14.7, platelets 289, PT 9.8, INR 0.9. Received IV fluids, antiemetics, morphine and PPI, feeling better. 06/10/2021 no bowel movement, patient reports passing flatus .no further nausea or vomiting .reports abdominal pain improving . NG tube on hold at this time as per surgery .clear liquid diet initiated .maintained on nebulized bronchodilators, nicotine patch , maintaining O2 sats in the 90s on room air.Chest x-ray reporting possible right hilar mass, the patient with history of breast cancer. Evaluated by pulmonary, chest CT ordered. Telemetry sinus rhythm, denies chest pain, palpitations, heparin drip discontinued as per cardiology. 06/11/[address] reported confirmation of large right hilar mass with mediastinal and patient up to the level of the thoracic inlet consistent with primary lung neoplasm, consider small cell carcinoma, metastatic disease to the liver redemonstrated.NPO, scheduled for bronchoscopy with lung biopsy. Fluctuating confusion, easily forgets, difficulty at times recalling past events; couldn't remember what her daughter does for a living. Denies chest pain, palpitations or shortness of breath. Maintaining O2 sats in the 90s on room air. Denies further nausea or vomiting, positive bowel movement today, loose, passing flatus. 06/14/2021 minimal NG tube drainage overnight, passing flatus, no bowel movement. Denies nausea vomiting or abdominal pain. Status post bronchoscopy, pathology, cultures pending. Afebrile, WBC 11.8. Potassium 3.1, renal function stable.Computed tomography scan of brain reported no evidence of metastatic disease. Objective - Vital Signs Vital signs: Vital Signs Temp 97.9 F 06/14/21 04:00 Pulse 109 H 06/14/21 04:00 Resp 16 06/14/21 04:00 BP 161/97 06/14/21 04:00 Pulse Ox 95 06/14/21 04:00 Intake & Output 06/13/21 06/14/21 06/14/21 18:59 06:59 18:59 Intake Total 10 Output Total 1100 Balance -1100 10 Intake: IV 10 Invasive Line 2 10 Output: Urine 1100 Other: Voiding Method Bedside Commode Bedside Commode # Voids 1 1 - Exam PHYSICAL EXAM: VITAL SIGNS: [As above] GENERAL: Alert and oriented 3,Sitting up in bed, hard of hearing. HEENT: Conjunctivae normal. eyes normal. 3 teeth recently extracted. NECK: No JVD. No thyroid enlargement. No LNs CARDIOVASCULAR: S1, S2 regular. Systolic murmur RESPIRATION: Breath sounds diminished in the bases. No rhonchi or crackles. ABDOMEN: Soft, nontender, nondistended,No guarding. no masses palpable.Bowel sounds heard. LEGS: No edema. no swelling NERVOUS SYSTEM: Cranial N 2-12 grossly normal. No focal deficits. Strength and sensation grossly intact. Skin: Warm and dry, no rash - Labs CBC & Chem 7: 06/14/21 09:42 06/14/21 09:42 Labs: Abnormal Lab Results - Last 24 Hours (Table) 06/14/21 06/14/21 Range/Units 09:42 09:42 WBC 11.8 H (3.8-10.6) k/uL Neutrophils # 10.3 H (1.3-7.7) k/uL Lymphocytes # 0.7 L (1.0-4.8) k/uL Potassium 3.1 L (3.5-5.1) mmol/L Assessment and Plan Assessment: Mechanical ileus, in a patient with 3 teeth extracted 5 days ago, with Dr. Ramirez- oral surgeon; minimal oral intake post procedure, on antibiotics, NSAIDs and opioids, with nausea, dark brown emesis and mid epigastric pain. Reports no flatus, no bowel movement 4-[address] reports dilated small bowel with fluid suggestive of new mechanical small bowel obstruction, transition point not identified. NG tube for decompression. Mildly elevated lipase Right hilar mass confirmed per chest CT, status post bronchoscopy -pathology pending. Multiple hypodense liver lesions suggestive of metastatic disease To [address], in a patient with history of left breast CA with lumpectomy, radiation ;further workup, monitoring outpatient Hypovolemic hyponatremia secondary to #1 Metabolic encephalopathy secondary to all the above, possible metastatic, brain CT ordered Hypokalemia, resolved Elevated troponins, without chest pain reported, no acute ischemic event as per Cardiology. EF greater than 55% Moderate mitral regurgitation mild pulmonary hypertension COPD with underlying emphysema Nicotine dependence Occasional alcohol use Arthritis Plan: Continue on current medication regime ,monitoring and symptomatic treatment. NG tube clamped with clear liquid diet initiated as per surgery .potassium supplementation ordered. Magnesium level added onto labs/pending.bronchoscopy pathology pending .Smoking cessation reinforced. Prognosis guarded given multiple complex medical issues. The impression and plan of care has been dictated as directed. : I performed a history and examination of this patient, discussed the same with the dictator. I agree with the dictator's note ,documented as a scribe. Any additional findings or plans will be noted.
--- NOTE | 2021-06-14 12:00 | P.CONS ---
History of Present Illness - Reason for Consult Consult date: 06/14/21 Metastatic lung cancer Requesting physician: Michael Church Jr - Chief Complaint Abdominal pain and vomiting - History of Present Illness Mrs. Flynn is a very pleasant 75-year-old female patient with an asked to see status post bronchoscopy and biopsy 2/ for new finding of lung mass and liver lesions. Patient was independent with complaints of abdominal pain and vomi ting, persistent. CT of the abdomen and pelvis impression dilated small bowel with fluid suggesting mechanical small bowel obstruction. Multiple hypodense liver lesions suggesting metastasis. CT of the chest confirming a large hilar mass with mediastinal invasion up to the level of thoracic inlet. CT of the brain without contrast impression no acute intracranial hemorrhage or midline shift. She has an NG tube placed for bowel obstruction. Patient reports chronic constipation. Patient has a history of breast cancer, 10 years ago, treated by Dr. Lyles, s/p partial mastectomy, radiation and an AI for 5 years. Was never seen by Medical Oncologist. She does not recall her last colonoscopy but she is pretty sure greater than 5 years ago. Review of Systems 10 point review of systems is negative except as stated in HPI Past Medical History Past Medical History: No Reported History, Cancer, COPD, Hyperlipidemia Additional Past Medical History / Comment(s): L breast cancer with lumpecto my/radiationin 2004, arthritis bilateral hands, benign colon polyps, hiatal hernia, bilateral KLUTI KAAH/tinnitis, sinus problems. History of Any Multi-Drug Resistant Organisms: None Reported Past Surgical History: Breast Surgery Additional Past Surgical History / Comment(s): L breast biopsy/ lumpectomy, colonoscpopy/polypectomy, L wrist carpal tunnel release, vaginal lesion removed Past Anesthesia/Blood Transfusion Reactions: No Reported Reaction Past Psychological History: No Psychological Hx Reported Smoking Status: Current every day smoker Past Alcohol Use History: Rare Past Drug Use History: None Reported - Past Family History Father Family Medical History: No Reported History Additional Family Medical History / Comment(s): Father was healthy Mother Family Medical History: Cancer Additional Family Medical History / Comment(s): Colon cancer Medications and Allergies Home Medications Medication Instructions Recorded Confirmed Type Cephalexin [Keflex] 500 mg PO Q12HR 06/08/21 06/08/21 History Cetirizine HCl [Zyrtec] 10 mg PO DAILY 06/08/21 06/08/21 History Gabapentin [Neurontin] 400 mg PO HS 06/08/21 06/08/21 History HYDROcodone/IBUPROFEN 7.5-200 1 tab PO TID PRN 06/08/21 06/08/21 History [Vicoprofen 7.5-200 mg] Pravastatin Sodium 80 mg PO DAILY 06/08/21 06/08/21 History Prochlorperazine [Compazine] 5 mg PO TID PRN 06/08/21 06/08/21 History Allergies Allergy/AdvReac Type Severity Reaction Status Date / Time Penicillins Allergy Unknown Verified 06/08/21 19:36 Physical Exam Vitals: Vital Signs Temp Pulse Pulse Resp BP Pulse Ox 06/14/21 04:00 97.9 F 109 H 16 161/97 95 06/14/21 00:00 97.4 F L 89 16 187/92 98 06/13/21 20:00 97.9 F 95 16 179/89 99 06/13/21 19:04 99 06/13/21 18:56 95 06/13/21 16:15 96.2 F L 92 16 180/92 96 06/13/21 15:26 100 06/13/21 15:17 92 06/13/21 11:40 98.1 F 77 16 182/86 93 L Intake and Output 06/13/21 06/14/21 06/14/21 22:59 06:59 14:59 Intake Total 10 Output Total 600 Balance -590 Intake: IV 10 Invasive Line 2 10 Output: Urine 600 Other: Voiding Method Bedside Commode Bedside Commode # Voids 2 1 1 - Constitutional General appearance: cooperative, no acute distress, thin - EENT Eyes: anicteric sclerae, EOMI ENT: hearing grossly normal, normal oropharynx - Neck Neck: no lymphadenopathy - Respiratory Respiratory: bilateral: diminished - Cardiovascular Rhythm: regular Heart sounds: normal: S1, S2 Abnormal Heart Sounds: no systolic murmur, no diastolic murmur, no rub, no S3 Gallop, no S4 Gallop, no click, no other leg Peripheral Edema: bilateral: Trace - Gastrointestinal General gastrointestinal: no absent bowel sounds, no decreased bowel sounds, no distended, no hepatomegaly, no hyperactive bowel sounds, normal bowel sounds, no organomegaly, no rigid, no scaphoid, soft, no splenomegaly, no tenderness, no umbilical hernia, no ventral hernia - Integumentary Integumentary: pale - Neurologic Neurologic: CNII-XII intact - Musculoskeletal Musculoskeletal: strength equal bilaterally - Psychiatric Psychiatric: A&O x's 3, appropriate affect, intact judgment & insight Results CBC & Chem 7: 06/14/21 09:42 06/14/21 09:42 Labs: Abnormal Lab Results - Last 24 Hours (Table) 06/14/21 06/14/21 Range/Units 09:42 09:42 WBC 11.8 H (3.8-10.6) k/uL Neutrophils # 10.3 H (1.3-7.7) k/uL Lymphocytes # 0.7 L (1.0-4.8) k/uL Potassium 3.1 L (3.5-5.1) mmol/L Chest x-ray: report reviewed Abdominal x-ray: report reviewed CT scan - abdomen: report reviewed CT scan - chest: report reviewed CT scan - pelvis: report reviewed Assessment and Plan (1) Liver lesion Current Visit: Yes Status: Acute Priority: High Code(s): K76.9 - LIVER DISEASE, UNSPECIFIED SNOMED Code(s): 769526052 (2) Neoplasm of hilus of right lung Current Visit: Yes Status: Acute Priority: High Code(s): D49.1 - NEOPLASM OF UNSPECIFIED BEHAVIOR OF RESPIRATORY SYSTEM SNOMED Code(s): 028985114 (3) Small bowel obstruction Narrative/Plan: NG tube, bile colored fluid, bowel rest. Mgmt by Surgery. Unknown cause. Patient does report chronic constipation. Current Visit: Yes Status: Acute Priority: High Code(s): K56.609 - UNSP INTESTNL OBST, UNSP TO PARTIAL VERSUS COMPLETE OBST SNOMED Code(s): 468846284 (4) Breast cancer Narrative/Plan: Hx >10 years ago. Possible, but less likely, presentation is metastatic from breast cancer. Will await biopsy results. Current Visit: No Status: Chronic Priority: Medium Code(s): C50.919 - MALIGNANT NEOPLASM OF UNSP SITE OF UNSPECIFIED FEMALE BREAST SNOMED Code(s): 942254798 Plan: Patient is status post bronchoscopy and biopsy with Dr. Reid 06/11. Pending pathology results. Dr. Ratliff explained to the patient presentation and findings are concerning for a new primary malignancy. Pending pathology results then prognosis and treatment options will be discussed. Patient verbalized understanding. She had no further questions or concerns at this time. We'll continue follow-up. Doctor attests: I performed a history and physical examination of this patient, developed impression and plan of care. Discussed with dictator. I agree with dictators note, documented as a scribe.
[2021-06-14] MEDS: POTASSIUM CHLORIDE ER 20 MEQ TAB.ER PO SCH (14:21)
[2021-06-14] MEDS: POTASSIUM CHLORIDE 10 MEQ in WATER FOR INJECTION 1 100ML.BAG IVPB SCH ×4 (15:46→19:55)
--- NOTE | 2021-06-14 15:50 | XR ---
EXAMINATION TYPE: XR chest 2V DATE OF EXAM: 06/14/2021 COMPARISON: 06/12/2021 TECHNIQUE: PA and lateral views submitted. HISTORY: Basilar crackles FINDINGS: Right-sided hilar prominence and consolidation with a small right effusion. Perihilar interstitial ch anges seen. Surgical change overlying the left chest. Hypertrophic and degenerative change of the spi ne. Arthropathy shoulders. No pneumothorax. IMPRESSION: 1. Right hilar prominence consistent with mass. Superimposed interstitial asymmetric edema or pneumon itis in the differential diagnosis.
--- NOTE | 2021-06-14 18:04 | P.PN ---
Subjective Progress Note Date: 06/14/21 Principal diagnosis: Right hilar mass with extensive adenopathy and liver metastasis 75-year-old female patient I'm seeing her for a right hilar mass and possibility of a malignancy. The patient had ptosis fraction approximately 5 days ago. Since then, the patient started having some abdominal pain and nausea and emesis. The patient stated that she had not had any bowel movement approximately 3-4 days prior to her hospital admission. She was passing flatus. No nausea. No emesis. She came into the hospital the CAT scan of the abdomen was done and was concerning for a small bowel obstruction along with multiple hypodense liver lesions suggestive of metastatic disease. Chest x-ray also showed a right hilar mass. The patient is also known to have COPD and previous history of breast cancer. She has undergone a left breast lumpectomy followed by radiation therapy. The pulmonary consultation was requested accordingly. Initially the patient was kept nothing by mouth and currently the patient is allowed to take some clear liquid diet. NG tube has not been placed. Note that the patient also had a low dose of the chest for lung cancer screening back in 2019 and back then there was no evidence of any malignancy. The patient smokes approximately half to 1 pack of cigarettes and she's been smoking for many years. She has been smoking for at least 50 years for now. She does not use oxygen. She does not use any form of respiratory medications or inhalers. She has taken COVID 19 vaccination 2. He COVID 19 testing was negative during this current admission. 06/13/2021, the patient is comfortable in terms of her breathing. The patient undergone biopsy of the lung and the results pending for now with a high suspicion for lung cancer. This is likely metastatic in nature. Meanwhile, the patient is also having issues with bowel obstruction. General surgeries on the case. NG tube is in place. The output from the NG tube has dropped over the past 24 hours. Patient is passing some limited amount of flatus. Abdomen slightly distended. General surgeries on the case and there weren't to put the patient into bowel rest and gastric decompression for another 24 hours. White cell count is at 10.7 with a hemoglobin of 15.6, BUN is at 6 with a creatinine of 0.6 and the sodium level is at 137. She is awake and alert. She is following commands. CAT scan of the brain was also negative for any metastases. Flat some of the abdomen today shows stable findings and the findings with reflect mid to distal small bowel obstruction Reevaluated today on 11/2021, patient is about the same, continues to have intermittent episodes of cough and wheezing and shortness of breath. Patient most likely has lung cancer with metastasis. Results of her lung biopsy are pending. Hopefully we'll have the results in the next 24 hours. Otherwise the patient seems to be doing fairly well, no nausea no vomiting no abdominal pain. WBC count today is 11.8 hemoglobin 13.6 electrolytes are normal except for potassium of 3.1. Renal profile is normal Objective - Vital Signs Vital signs: Vital Signs Temp 98.2 F 06/14/21 16:00 Pulse 89 06/14/21 16:00 Resp 18 06/14/21 16:00 BP 171/95 06/14/21 16:00 Pulse Ox 93 L 06/14/21 16:00 Intake & Output 06/13/21 06/14/21 06/14/21 18:59 06:59 18:59 Intake Total 10 Output Total 1100 Balance -1100 10 Intake: IV 10 Invasive Line 2 10 Output: Urine 1100 Other: Voiding Method Bedside Commode Bedside Commode Bedside Commode # Voids 1 3 # Bowel Movements 0 - Exam GENERAL: Alert and oriented 3,Sitting up in bed, hard of hearing. HEENT: [place], CT, anicteric. NECK: No JVD. No thyroid enlargement. No LNs CARDIOVASCULAR: Normal S1 and S2, 2/6 systolic murmur thought the precordium. RESPIRATION: Rhonchi and wheezing noted on the right side of the chest. ABDOMEN: Soft, nontender, nondistended,No guarding. no masses palpable.Bowel sounds heard. LEGS: No edema. no swelling NERVOUS SYSTEM: Alert and oriented 3 no Focal deficits. Skin: No rashes. - Labs CBC & Chem 7: 06/14/21 09:42 06/14/21 09:42 Labs: Abnormal Lab Results - Last 24 Hours (Table) 06/14/21 06/14/21 Range/Units 09:42 09:42 WBC 11.8 H (3.8-10.6) k/uL Neutrophils # 10.3 H (1.3-7.7) k/uL Lymphocytes # 0.7 L (1.0-4.8) k/uL Potassium 3.1 L (3.5-5.1) mmol/L Assessment and Plan Assessment: Impression: Right hilar mass highly suspicious for bronchogenic carcinoma with metastasis. Acute ileus, being addressed by surgery. Hypovolemic hyponatremia. Hypokalemia. Mitral regurgitation. History of underlying COPD presently inactive. Nicotine dependence syndrome. History of breast cancer and previous lumpectomy followed by radiation. Recommendation: Continue present supportive care measures Surgery is following regarding her partial abdominal obstruction. Awaiting results of the bronchoscopy/biopsy Oncology has been consulted. Prognosis is definitely guarded. We'll continue to follow. Discussed her condition with the patient and her daughter at the bedside Time with Patient: Less than 30
[2021-06-14] MEDS: GABAPENTIN 400 MG CAP PO SCH (20:02)
[2021-06-15] MEDS: POTASSIUM CHLORIDE 10 MEQ in WATER FOR INJECTION 1 100ML.BAG IVPB SCH ×3 (01:41→20:36)
[2021-06-15] MEDS: MORPHINE SULFATE 4 MG/ML SYRINGE IV PRN ×5 (03:26→19:07)
[2021-06-15] MEDS: SODIUM CHLORIDE 0.9% 1,000 ML IV SCH ×2 (05:03→17:33)
[2021-06-15] MEDS: IPRATROPIUM-ALBUTEROL 3 ML NEB INHALATION SCH ×4 (07:38→21:11)
[2021-06-15] MEDS: NICOTINE 14MG/24HR PATCH TRANSDERM SCH (09:27)
[2021-06-15] MEDS: LORATADINE 10 MG TAB PO SCH (09:27)
[2021-06-15] MEDS: PRAVASTATIN SODIUM 80 MG TAB PO SCH ×2 (09:27→09:29)
[2021-06-15] MEDS: ASPIRIN 81 MG PO SCH (09:27)
[2021-06-15] MEDS: PANTOPRAZOLE 40 MG/10 ML VIAL IV SCH (09:27)
[2021-06-15] MEDS: METOPROLOL TARTRATE 25 MG TAB PO SCH ×2 (09:27→20:37)
[2021-06-15] MEDS ORDERED: POTASSIUM CHLORIDE 20 MEQ in WATER FOR INJECTION 1 100ML.BAG IVPB STA (11:00)
--- NOTE | 2021-06-15 11:16 | P.PN ---
Subjective Progress Note Date: 06/15/21 This is a pleasant 75-year-old female, Covid vaccinated X 2, hard of hearing, left breast cancer with lumpectomy/radiation, arthritis with past medical history of nicotine dependence-has smoked since she was a teen and is currently at a half pack per day, hiatal hernia presented to the ER with mid epigastric abdominal pain, constipation, nausea, vomiting of dk. brown emesis. Patient reports on last Monday she had [address] Ramirez secondary to gingivitis. Postprocedure she found it very difficult to eat and drink. Sodium 128 to 1:30, BUN ranging from 11-7, creatinine 0.82. Reports she is not passing any flatus ,with no bowel movement since her teeth extraction. Tested negative for Coronavirus. Hypoxic, O2 sat 87% on room air currently high 90s to 100% on 2 L nasal cannula. Denies any chest pain, chest pressure, or shortness of breath. Troponin 0.097, 0.151. Evaluated by cardiology, echo pending. EKG reporting normal sinus rhythm. Chest x-ray pending. CT of abdomen and pelvis reporting new multiple hypodense liver lesions suggestive of metastatic disease measuring up to 4 cm, will require further monitoring/workup outpatient, dilated small bowel with fluid suggestive of new mechanical small bowel obstruction, transition point not identified. LFTs within normal limits with the exception of AST mildly elevated ,50. Lipase 311. Afebrile, normal WBC. UA Negative. H emoglobin 14.7, platelets 289, PT 9.8, INR 0.9. Received IV fluids, antiemetics, morphine and PPI, feeling better. 06/10/2021 no bowel movement, patient reports passing flatus .no further nausea or vomiting .reports abdominal pain improving . NG tube on hold at this time as per surgery .clear liquid diet initiated .maintained on nebulized bronchodilators, nicotine patch , maintaining O2 sats in the 90s on room air.Chest x-ray reporting possible right hilar mass, the patient with history of breast cancer. Evaluated by pulmonary, chest CT ordered. Telemetry sinus rhythm, denies chest pain, palpitations, heparin drip discontinued as per cardiology. 06/11/[address] reported confirmation of large right hilar mass with mediastinal and patient up to the level of the thoracic inlet consistent with primary lung neoplasm, consider small cell carcinoma, metastatic disease to the liver redemonstrated.NPO, scheduled for bronchoscopy with lung biopsy. Fluctuating confusion, easily forgets, difficulty at times recalling past events; couldn't remember what her daughter does for a living. Denies chest pain, palpitations or shortness of breath. Maintaining O2 sats in the 90s on room air. Denies further nausea or vomiting, positive bowel movement today, loose, passing flatus. 06/14/2021 minimal NG tube drainage overnight, passing flatus, no bowel movement. Denies nausea vomiting or abdominal pain. Status post bronchoscopy, pathology, cultures pending. Afebrile, WBC 11.8. Potassium 3.1, renal function stable.Computed tomography scan of brain reported no evidence of metastatic disease. 06/15/2021 chest x-ray from yesterday afternoon reporting right hilar prominence consistent with mass, superimposed interstitial asymmetric edema or pneumonitis. Maintaining O2 sats in the 90s on room air. Afebrile. Potassium 3.2. Bronchoscopy pathology/ cultures pending. Evaluated by oncology with recommendations noted and appreciated. PT evaluation pending. Objective - Vital Signs Vital signs: Vital Signs Temp 97.5 F L 06/15/21 08:36 Pulse 100 06/15/21 10:02 Resp 18 06/15/21 10:02 BP 149/97 06/15/21 08:36 Pulse Ox 95 06/15/21 08:36 Intake & Output 06/14/21 06/15/21 06/15/21 18:59 06:59 18:59 Intake Total 1340 Balance 1340 Weight 58.967 kg Intake: IV 300 Sodium Chloride 0.9% 1, 300 000 ml @ 100 mls/hr IV . Q10H BRENDA Rx#:[id number] Intake, IV Titration 700 Amount Potassium Chloride 10 meq 400 In Water For Injection 1 100ml.bag @ 100 mls/hr IVPB Q1H BRENDA Rx#: [id number] Potassium Chloride 10 meq 300 In Water For Injection 1 100ml.bag @ 100 mls/hr IVPB Q1HR BRENDA Rx#: [id number] Oral 340 Other: Voiding Method Bedside Commode Bedside Commode Bedside Commode # Voids 3 3 # Bowel Movements 0 - Exam PHYSICAL EXAM: VITAL SIGNS: [As above] GENERAL: Alert and oriented 3,Sitting up in bed, hard of hearing. HEENT: Conjunctivae normal. eyes normal. 3 teeth recently extracted. NECK: No JVD. No thyroid enlargement. No LNs CARDIOVASCULAR: S1, S2 regular. Systolic murmur RESPIRATION: Breath sounds diminished with right basilar crackles. ABDOMEN: Soft, nontender, nondistended,No guarding. no masses palpable.Bowel sounds heard. LEGS: No edema. no swelling NERVOUS SYSTEM: Cranial N 2-12 grossly normal. No focal deficits. Strength and sensation grossly intact. Skin: Warm and dry, no rash - Labs CBC & Chem 7: 06/14/21 09:42 06/14/21 23:38 Labs: Abnormal Lab Results - Last 24 Hours (Table) 06/14/21 Range/Units 23:38 Potassium 3.2 L (3.5-5.1) mmol/L Assessment and Plan Assessment: Mechanical ileus, in a patient with 3 teeth extracted 5 days ago, with Dr. Ramirez- oral surgeon; minimal oral intake post procedure, on antibiotics, NSAIDs and o pioids, with nausea, dark brown emesis and mid epigastric pain. Reports no flatus, no bowel movement 4-[address] reports dilated small bowel with fluid suggestive of new mechanical small bowel obstruction, transition point not identified. NG tube for decompression. Mildly elevated lipase Right hilar mass confirmed per chest CT, status post bronchoscopy -pathology pending. Atelectasis, possible pneumonitis Multiple hypodense liver lesions suggestive of metastatic disease To [address], in a patient with history of left breast CA with lumpectomy, radiation ;further workup, monitoring outpatient Hypovolemic hyponatremia secondary to #1 Metabolic encephalopathy secondary to all the above, possible metastatic, brain CT ordered Hypokalemia, resolved Elevated troponins, without chest pain reported, no acute ischemic event as per Cardiology. EF greater than 55% Moderate mitral regurgitation mild pulmonary hypertension COPD with underlying emphysema Nicotine dependence Occasional alcohol use Arthritis Plan: Continue on current medication regime ,monitoring and symptomatic treatment. potassium supplementation ordered. Magnesium level now /pending with intentions to supplement discussed with RN-apparently no magnesium supplementation administered yesterday.bronchoscopy pathology pending .PT evaluation pending Prognosis guarded given multiple complex medical issues. The impression and plan of care has been dictated as directed. : I performed a history and examination of this patient, discussed the same with the dictator. I agree with the dictator's note ,documented as a scribe. Any additional findings or plans will be noted.
[2021-06-15] MEDS: POTASSIUM CHLORIDE 20 MEQ in WATER FOR INJECTION 1 100ML.BAG IVPB SCH ×2 (11:40→16:51)
[2021-06-15] MEDS ORDERED: Magnesium Replacement Protocol 1 EACH MISC MISCELLANE PRN (12:17)
--- NOTE | 2021-06-15 12:24 | P.PN ---
Subjective Progress Note Date: 06/15/21 Principal diagnosis: right hilar mass 75-year-old female patient I'm seeing her for a right hilar mass and possibility of a malignancy. The patient had ptosis fraction approximately 5 days ago. Since then, the patient started having some abdominal pain and nausea and emesis. The patient stated that she had not had any bowel movement approximately 3-4 days prior to her hospital admission. She was passing flatus. No nausea. No emesis. She came into the hospital the CAT scan of the abdomen was done and was concerning for a small bowel obstruction along with multiple hypodense liver lesions suggestive of metastatic disease. Chest x-ray also showed a right hilar mass. The patient is also known to have COPD and previous history of breast cancer. She has undergone a left breast lumpectomy followed by radiation therapy. The pulmonary consultation was requested accordingly. Initially the patient was kept nothing by mouth and currently the patient is allowed to take some clear liquid diet. NG tube has not been placed. Note that the patient also had a low dose of the chest for lung cancer screening back in 2019 and back then there was no evidence of any malignancy. The patient smokes approximately half to 1 pack of cigarettes and she's been smoking for many years. She has been smoking for at least 50 years for now. She does not use oxygen. She does not use any form of respiratory medications or inhalers. She has taken COVID 19 vaccination 2. He COVID 19 testing was negative during this current admission. 06/13/2021, the patient is comfortable in terms of her breathing. The patient undergone biopsy of the lung and the results pending for now with a high suspicion for lung cancer. This is likely metastatic in nature. Meanwhile, the patient is also having issues with bowel obstruction. General surgeries on the case. NG tube is in place. The output from the NG tube has dropped over the past 24 hours. Patient is passing some limited amount of flatus. Abdomen slightly distended. General surgeries on the case and there weren't to put the patient into bowel rest and gastric decompression for another 24 hours. White cell count is at 10.7 with a hemoglobin of 15.6, BUN is at 6 with a creatinine of 0.6 and the sodium level is at 137. She is awake and alert. She is following commands. CAT scan of the brain was also negative for any metastases. Flat some of the abdomen today shows stable findings and the findings with reflect mid to distal small bowel obstruction Reevaluated today on 11/2021, patient is about the same, continues to have intermittent episodes of cough and wheezing and shortness of breath. Patient most likely has lung cancer with metastasis. Results of her lung biopsy are pending. Hopefully we'll have the results in the next 24 hours. Otherwise the patient seems to be doing fairly well, no nausea no vomiting no abdominal pain. WBC count today is 11.8 hemoglobin 13.6 electrolytes are normal except for potassium of 3.1. Renal profile is normal On the 06/15/2021 patient seen in follow-up on selective care unit, she is awake and alert, in no distress, still bit congested, coughing, not producing much phlegm. She is on room air, lung sounds reveal some diffuse wheezes and rhonchi. She remains on DuoNeb. No nausea or vomiting, NG tube has been on for a couple of days now, abdomen is soft, bowel sounds are positive 4. Patient is tolerating clear liquid diet. Patient is status post bronchoscopy with lung biopsy and the results are still pending at this time. No new labs today. Objective - Vital Signs Vital signs: Vital Signs Temp 98.9 F 06/15/21 11:28 Pulse 84 06/15/21 11:39 Resp 18 06/15/21 11:28 BP 149/72 06/15/21 11:28 Pulse Ox 93 L 06/15/21 11:28 Intake & Output 06/14/21 06/15/21 06/15/21 18:59 06:59 18:59 Intake Total 1340 Balance 1340 Weight 58.967 kg Intake: IV 300 Sodium Chloride 0.9% 1, 300 000 ml @ 100 mls/hr IV . Q10H BRENDA Rx#:[id number] Intake, IV Titration 700 Amount Potassium Chloride 10 meq 400 In Water For Injection 1 100ml.bag @ 100 mls/hr IVPB Q1H BRENDA Rx#: [id number] Potassium Chloride 10 meq 300 In Water For Injection 1 100ml.bag @ 100 mls/hr IVPB Q1HR BRENDA Rx#: [id number] Oral 340 Other: Voiding Method Bedside Commode Bedside Commode Bedside Commode # Voids 3 3 # Bowel Movements 0 - Exam GENERAL EXAM: Alert, very pleasant, 75-year-old white female, on room air, with intermittent coughing and wheezing omfortable in no apparent distress. HEAD: Normocephalic/atraumatic. EYES: Normal reaction of pupils, equal size. Conjunctiva pink, sclera white. NOSE: Clear with pink turbinates. THROAT: No erythema or exudates. NECK: No masses, no JVD, no thyroid enlargement, no adenopathy. CHEST: No chest wall deformity. Symmetrical expansion. LUNGS: Equal air entry with diffuse rhonchi, and wheezing CVS: Regular rate and rhythm, normal S1 and S2, no gallops, no murmurs, no rubs ABDOMEN: Soft, nontender. No hepatosplenomegaly, normal bowel sounds, no guarding or rigidity. EXTREMITIES: No clubbing, no edema, no cyanosis, 2+ pulses and upper and lower extremities. MUSCULOSKELETAL: Muscle strength and tone normal. SPINE: No scoliosis or deformity SKIN: No rashes CENTRAL NERVOUS SYSTEM: Alert and oriented -3. No focal deficits, tone is normal in all 4 extremities. PSYCHIATRIC: Alert and oriented -3. Appropriate affect. Intact judgment and insight. - Labs CBC & Chem 7: 06/14/21 09:42 06/14/21 23:38 Labs: Abnormal Lab Results - Last 24 Hours (Table) 06/14/21 Range/Units 23:38 Potassium 3.2 L (3.5-5.1) mmol/L Assessment and Plan Plan: Assessment: #1. Right hilar mass with extensive adenopathy and liver metastasis, patient is status post bronchoscopy with right lung biopsy, awaiting final pathology report #2. 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 Metastatic liver lesions highly suspicious for underlying malignancy, consider underlying primary lung cancer #4. Ileus versus partial small bowel obstruction please refer to the computed tomography scan of the abdomen, Gen. surgery is on the case, patient's stomach was decompressed via an NG tube, currently NG tube has been discontinued, no nausea or vomiting. #5. Abnormal troponin with mild elevation without evidence of an acute ischemic event #6. Hyperlipidemia #7. Remote history of breast cancer on the left status post lumpectomy followed by radiation therapy followed by tamoxifen treatment for a total of 5 years #8. History of smoking, carries [id number] smoking history, currently on a nicotine patch Plan: Lung biopsy results are still pending at this time Patient is mildly wheezy and congested Continue DuoNeb, we will add Pulmicort and Perforomist, We may consider adding a small dose of prednisone Abdomen is soft, but patient is having some increased cramping today NG tube remains out, general surgery recommendations We'll continue to follow her clinical course I performed a history & physical examination of the patient and discussed their management with my nurse practitioner, Rosina Hurtado. I reviewed the nurse practitioner's note and agree with the documented findings and plan of care. Lung sounds are positive for diffuse wheezes throughout the lung muro. The findings and the impression was discussed with the patient. I attest to the documentation by the nurse practitioner. Time with Patient: Less than 30
--- NOTE | 2021-06-15 13:58 | P.PN ---
Subjective Progress Note Date: 06/15/21 Patient seen and examined at bedside. She is tolerating clear liquid diet. Denies any nausea or vomiting. States she had flatus yesterday. Denies any bowel movements today. Objective - Vital Signs Vital signs: Vital Signs Temp 98.9 F 06/15/21 11:28 Pulse 84 06/15/21 11:39 Resp 18 06/15/21 11:28 BP 149/72 06/15/21 11:28 Pulse Ox 93 L 06/15/21 11:28 Intake & Output 06/14/21 06/15/21 06/15/21 18:59 06:59 18:59 Intake Total 1340 1480 Balance 1340 1480 Weight 58.967 kg Intake: IV 300 Sodium Chloride 0.9% 1, 300 000 ml @ 100 mls/hr IV . Q10H [facility]ENDA Rx#:[id number] Intake, IV Titration 700 Amount Potassium Chloride 10 meq 400 In Water For Injection 1 100ml.bag @ 100 mls/hr IVPB Q1H [facility]ENDA Rx#: [id number] Potassium Chloride 10 meq 300 In Water For Injection 1 100ml.bag @ 100 mls/hr IVPB Q1HR BRENDA Rx#: [id number] Oral 340 1480 Other: Voiding Method Bedside Commode Bedside Commode Bedside Commode # Voids 3 3 # Bowel Movements 0 - Constitutional General appearance: Present: cooperative, no acute distress - Respiratory Details: No difficulty with respiration - Gastrointestinal Gastrointestinal Comment(s): Soft, nontender, mild distention, no rebound, no guarding - Psychiatric Psychiatric: Present: A&O x's 3 - Labs CBC & Chem 7: 06/14/21 09:42 06/14/21 23:38 Labs: Abnormal Lab Results - Last 24 Hours (Table) 06/14/21 Range/Units 23:38 Potassium 3.2 L (3.5-5.1) mmol/L Assessment and Plan Plan: 75-year-old female with ileus versus small bowel obstruction. Tolerating clear liquid diet without any nausea or vomiting. We'll advance to full liquid diet. Continue to await further bowel function. Continue medical and pulmonology recommendations.
--- NOTE | 2021-06-15 15:02 | P.PN ---
Subjective Progress Note Date: 06/15/21 Principal diagnosis: Lung mass In f/u today pt has NG out, she is walking around the room to encourage bowels to move. Her abd is still slightly distended. Has dry cough. Denies fever, vomiting. Objective - Vital Signs Vital signs: Vital Signs Temp 98.9 F 06/15/21 11:28 Pulse 84 06/15/21 14:00 Resp 18 06/15/21 14:00 BP 149/72 06/15/21 11:28 Pulse Ox 93 L 06/15/21 11:28 Intake & Output 06/14/21 06/15/21 06/15/21 18:59 06:59 18:59 Intake Total 1340 1480 Balance 1340 1480 Weight 58.967 kg Intake: IV 300 Sodium Chloride 0.9% 1, 300 000 ml @ 100 mls/hr IV . Q10H BRENDA Rx#:[id number] Intake, IV Titration 700 Amount Potassium Chloride 10 meq 400 In Water For Injection 1 100ml.bag @ 100 mls/hr IVPB Q1H BRENDA Rx#: [id number] Potassium Chloride 10 meq 300 In Water For Injection 1 100ml.bag @ 100 mls/hr IVPB Q1HR BRENDA Rx#: [id number] Oral 340 1480 Other: Voiding Method Bedside Commode Bedside Commode Bedside Commode # Voids 3 3 # Bowel Movements 0 - Constitutional General appearance: Present: average body habitus, cooperative, no acute distress - EENT Eyes: Present: anicteric sclerae, EOMI ENT: Present: hearing grossly normal - Respiratory Respiratory: bilateral: diminished - Cardiovascular Rhythm: regular Heart sounds: normal: S1, S2 - Gastrointestinal General gastrointestinal: Present: distended, normal bowel sounds, soft - Integumentary Integumentary: Present: normal - Neurologic Neurologic: Present: CNII-XII intact - Musculoskeletal Musculoskeletal: Present: strength equal bilaterally - Psychiatric Psychiatric: Present: A&O x's 3, appropriate affect, intact judgment & insight - Labs CBC & Chem 7: 06/14/21 09:42 06/15/21 13:58 Labs: Abnormal Lab Results - Last 24 Hours (Table) 06/14/21 Range/Units 23:38 Potassium 3.2 L (3.5-5.1) mmol/L Assessment and Plan (1) Liver lesion Current Visit: Yes Status: Acute Priority: High Code(s): K76.9 - LIVER DISEASE, UNSPECIFIED SNOMED Code(s): 989707544 (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 Mgmt by Surgery. Unknown cause. Patient does report chronic constipation. Current Visit: Yes Status: Acute Priority: High Code(s): K56.609 - UNSP INTESTNL OBST, UNSP TO PARTIAL VERSUS COMPLETE OBST SNOMED Code(s): 162309803 (4) Breast cancer Narrative/Plan: Hx >10 years ago. Possible, but less likely, presentation is metastatic from breast cancer. Will await biopsy results. Current Visit: No Status: Chronic Priority: Medium Code(s): C50.919 - MALIGNANT NEOPLASM OF UNSP SITE OF UNSPECIFIED FEMALE BREAST SNOMED Code(s): 458074253 Plan: Patient is status post bronchoscopy and biopsy with Dr. Reid 06/11. Pending pathology results. MRI brain-pt has asked if it can be done tomorrow. Ok. Contacted by IM HOSPICE FELLOW. DDS reported to PCP findings suggestive of pathology in pt gums, recommended including face and neck in MRI. Put request in comments on MRI order to please look at jaw.
[2021-06-15] MEDS: MAGNESIUM SULFATE-D5W PMX 1 GM in DEXTROSE/WATER 1 100ML.BAG IVPB SCH ×2 (15:25→16:54)
[2021-06-15] MEDS: methylPREDNISolone SOD SUCCI 40 MG/ML 1 ML VIAL IV SCH (16:54)
[2021-06-15] MEDS: LEVOFLOXACIN 500MG-D5W PMX 500 MG in DEXTROSE/WATER 1 100ML.BAG IVPB SCH (19:02)
[2021-06-15] MEDS: ONDANSETRON 4 MG/2 ML VIAL IVP PRN (19:07)
[2021-06-15] MEDS: GABAPENTIN 400 MG CAP PO SCH (20:38)
[2021-06-15] MEDS: FORMOTEROL FUMARATE 20 MCG/2 ML NEBU INHALATION SCH (21:10)
[2021-06-15] MEDS: BUDESONIDE 1 MG/2 ML NEBU INHALATION SCH (21:11)
[2021-06-16] MEDS: methylPREDNISolone SOD SUCCI 40 MG/ML 1 ML VIAL IV SCH ×4 (00:36→19:51)
[2021-06-16] MEDS: MORPHINE SULFATE 4 MG/ML SYRINGE IV PRN ×5 (02:30→19:54)
[2021-06-16] MEDS: SODIUM CHLORIDE 0.9% 1,000 ML IV SCH ×2 (02:33→12:51)
[2021-06-16] MEDS: IPRATROPIUM-ALBUTEROL 3 ML NEB INHALATION SCH ×4 (07:57→19:38)
[2021-06-16] MEDS: FORMOTEROL FUMARATE 20 MCG/2 ML NEBU INHALATION SCH ×2 (07:58→19:38)
[2021-06-16] MEDS: BUDESONIDE 1 MG/2 ML NEBU INHALATION SCH ×2 (07:58→19:38)
[2021-06-16 08:10] LABS: African American GFR (CKD) >90 (>60 ml/min/1.73 sqM); Anion Gap 5 mmol/L; Blood Urea Nitrogen 12 mg/dL (7-17); Calcium 8.8 mg/dL (8.4-10.2); Carbon Dioxide 26 mmol/L (22-30); Chloride 103 mmol/L (98-107); Glucose 123 mg/dL (74-99); Non-African American GFR(CKD) 89 (>60 ml/min/1.73 sqM); Potassium 3.7 mmol/L (3.5-5.1); Sodium 134 mmol/L (137-145)
[2021-06-16 08:17] LABS: Basophils % (A) 0 %; Eosinophils % (A) 0 %; HCT 38.9 % (34.0-46.0); HGB 13.2 gm/dL (11.4-16.0); Lymphocytes # (A) 0.5 k/uL (1.0-4.8); Lymphocytes % (A) 4 %; MCH 32.3 pg (25.0-35.0); MCHC 33.8 g/dL (31.0-37.0); MCV 95.4 fL (80.0-100.0); Mean Platelet Volume 7.2; Monocytes # (A) 0.6 k/uL (0-1.0); Monocytes % (A) 5 %; Neutrophils # (A) 9.7 k/uL (1.3-7.7); Neutrophils % (A) 89 %; Platelet Count 337 k/uL (150-450); RBC 4.08 m/uL (3.80-5.40); RDW 12.8 % (11.5-15.5); WBC 10.9 k/uL (3.8-10.6)
--- NOTE | 2021-06-16 08:55 | P.PN ---
Subjective Progress Note Date: 06/16/21 Patient seen and examined at bedside. States he is not having any abdominal pain. Having flatus. Denies bowel movement. States she feels like she has to have a bowel movement, however has not had one yet. Objective - Vital Signs Vital signs: Vital Signs Temp 98.0 F 06/16/21 07:02 Pulse 95 06/16/21 07:58 Resp 16 06/16/21 07:02 BP 155/94 06/16/21 07:02 Pulse Ox 94 L 06/16/21 07:02 Intake & Output 06/15/21 06/16/21 06/16/21 18:59 06:59 18:59 Intake Total 2360 700 360 Output Total 2 2 Balance 2358 698 360 Intake: IV 300 Sodium Chloride 0.9% 1, 300 000 ml @ 100 mls/hr IV . Q10H BRENDA Rx#:[id number] Oral 2360 400 360 Output: Urine 2 2 Other: Voiding Method Bedside Commode Bedside Commode # Voids 3 - Constitutional General appearance: Present: cooperative, no acute distress - Gastrointestinal Gastrointestinal Comment(s): Soft, nontender, mild distention, no rebound, no guarding - Psychiatric Psychiatric: Present: A&O x's 3 - Labs CBC & Chem 7: 06/16/21 07:18 06/16/21 07:18 Labs: Abnormal Lab Results - Last 24 Hours (Table) 06/16/21 06/16/21 Range/Units 07:18 07:18 WBC 10.9 H (3.8-10.6) k/uL Neutrophils # 9.7 H (1.3-7.7) k/uL Lymphocytes # 0.5 L (1.0-4.8) k/uL Sodium 134 L (137-145) mmol/L Glucose 123 H (74-99) mg/dL Assessment and Plan Plan: 75-year-old female with ileus versus small bowel obstruction.Continues to have flatus. Continue with full liquid diet for today. Await further bowel function. Continue with medical and oncologic recommendations due to metastatic disease.
[2021-06-16] MEDS: PANTOPRAZOLE 40 MG/10 ML VIAL IV SCH (09:14)
[2021-06-16] MEDS: NICOTINE 14MG/24HR PATCH TRANSDERM SCH (09:15)
[2021-06-16] MEDS: METOPROLOL TARTRATE 25 MG TAB PO SCH ×2 (09:15→19:48)
[2021-06-16] MEDS: ASPIRIN 81 MG PO SCH (09:16)
[2021-06-16] MEDS: LORATADINE 10 MG TAB PO SCH (09:16)
[2021-06-16] MEDS: PRAVASTATIN SODIUM 80 MG TAB PO SCH (09:16)
--- NOTE | 2021-06-16 10:50 | P.PN ---
Subjective Progress Note Date: 06/16/21 Principal diagnosis: right hilar mass 75-year-old female patient I'm seeing her for a right hilar mass and possibility of a malignancy. The patient had ptosis fraction approximately 5 days ago. Since then, the patient started having some abdominal pain and nausea and emesis. The patient stated that she had not had any bowel movement approximately 3-4 days prior to her hospital admission. She was passing flatus. No nausea. No emesis. She came into the hospital the CAT scan of the abdomen was done and was concerning for a small bowel obstruction along with multiple hypodense liver lesions suggestive of metastatic disease. Chest x-ray also showed a right hilar mass. The patient is also known to have COPD and previous history of breast cancer. She has undergone a left breast lumpectomy followed by radiation therapy. The pulmonary consultation was requested accordingly. Initially the patient was kept nothing by mouth and currently the patient is allowed to take some clear liquid diet. NG tube has not been placed. Note that the patient also had a low dose of the chest for lung cancer screening back in 2019 and back then there was no evidence of any malignancy. The patient smokes approximately half to 1 pack of cigarettes and she's been smoking for many years. She has been smoking for at least 50 years for now. She does not use oxygen. She does not use any form of respiratory medications or inhalers. She has taken COVID 19 vaccination 2. He COVID 19 testing was negative during this current admission. 06/13/2021, the patient is comfortable in terms of her breathing. The patient undergone biopsy of the lung and the results pending for now with a high suspicion for lung cancer. This is likely metastatic in nature. Meanwhile, the patient is also having issues with bowel obstruction. General surgeries on the case. NG tube is in place. The output from the NG tube has dropped over the past 24 hours. Patient is passing some limited amount of flatus. Abdomen slightly distended. General surgeries on the case and there weren't to put the patient into bowel rest and gastric decompression for another 24 hours. White cell count is at 10.7 with a hemoglobin of 15.6, BUN is at 6 with a creatinine of 0.6 and the sodium level is at 137. She is awake and alert. She is following commands. CAT scan of the brain was also negative for any metastases. Flat some of the abdomen today shows stable findings and the findings with reflect mid to distal small bowel obstruction Reevaluated today on 11/2021, patient is about the same, continues to have intermittent episodes of cough and wheezing and shortness of breath. Patient most likely has lung cancer with metastasis. Results of her lung biopsy are pending. Hopefully we'll have the results in the next 24 hours. Otherwise the patient seems to be doing fairly well, no nausea no vomiting no abdominal pain. WBC count today is 11.8 hemoglobin 13.6 electrolytes are normal except for potassium of 3.1. Renal profile is normal On the 06/15/2021 patient seen in follow-up on selective care unit, she is awake and alert, in no distress, still bit congested, coughing, not producing much phlegm. She is on room air, lung sounds reveal some diffuse wheezes and rhonchi. She remains on DuoNeb. No nausea or vomiting, NG tube has been on for a couple of days now, abdomen is soft, bowel sounds are positive 4. Patient is tolerating clear liquid diet. Patient is status post bronchoscopy with lung biopsy and the results are still pending at this time. No new labs today. On 06/16/2021 patient seen in follow-up on selective care unit, she is awake and alert, in no acute distress, she is on room air pulse ox is 94%, afebrile, hemodynamically she stable. Lung biopsy results are still pending at this time, yesterday patient was bronchospastic, COPD was active, we added steroids and bronchodilators. Last chest x-ray from 06/14/2021 showed right hilar prominence consistent with mass, superimposed interstitial asymmetric edema or pneumonitis. Today's labs have been reviewed, white blood cell count is 10.9, hemoglobin is 13.2, sodium is 134, potassium is 3.7, chloride is 103, the rest of the electrodes and renal profile were unremarkable. Patient is currently on IV Solu-Medrol 40 mg every 8 hours, and very conversant form of Levaquin were added, and patient is on nebulized bronchodilators. Lung sounds reveal coarse rhonchi, patient is less bronchospastic on today's exam. Her abdomen is soft, nontender, she's been tolerating full liquid diet, although her appetite is still poor. She has passed bowel movements, surgical services are on the case and following closely Objective - Vital Signs Vital signs: Vital Signs Temp 98.0 F 06/16/21 07:02 Pulse 95 06/16/21 07:58 Resp 16 06/16/21 07:02 BP 155/94 06/16/21 07:02 Pulse Ox 94 L 06/16/21 07:02 Intake & Output 06/15/21 06/16/21 06/16/21 18:59 06:59 18:59 Intake Total 2360 700 360 Output Total 2 2 Balance 2358 698 360 Intake: IV 300 Sodium Chloride 0.9% 1, 300 000 ml @ 100 mls/hr IV . Q10H BRENDA Rx#:[id number] Oral 2360 400 360 Output: Urine 2 2 Other: Voiding Method Bedside Commode Bedside Commode # Voids 3 - Exam GENERAL EXAM: Alert, very pleasant, 75-year-old white female, on room air, with intermittent coughing and wheezing omfortable in no apparent distress. HEAD: Normocephalic/atraumatic. EYES: Normal reaction of pupils, equal size. Conjunctiva pink, sclera white. NOSE: Clear with pink turbinates. THROAT: No erythema or exudates. NECK: No masses, no JVD, no thyroid enlargement, no adenopathy. CHEST: No chest wall deformity. Symmetrical expansion. LUNGS: Equal air entry with diffuse rhonchi, and wheezing CVS: Regular rate and rhythm, normal S1 and S2, no gallops, no murmurs, no rubs ABDOMEN: Soft, nontender. No hepatosplenomegaly, normal bowel sounds, no guarding or rigidity. EXTREMITIES: No clubbing, no edema, no cyanosis, 2+ pulses and upper and lower extremities. MUSCULOSKELETAL: Muscle strength and tone normal. SPINE: No scoliosis or deformity SKIN: No rashes CENTRAL NERVOUS SYSTEM: Alert and oriented -3. No focal deficits, tone is normal in all 4 extremities. PSYCHIATRIC: Alert and oriented -3. Appropriate affect. Intact judgment and insight. - Labs CBC & Chem 7: 06/16/21 07:18 06/16/21 07:18 Labs: Abnormal Lab Results - Last 24 Hours (Table) 06/16/21 06/16/21 Range/Units 07:18 07:18 WBC 10.9 H (3.8-10.6) k/uL Neutrophils # 9.7 H (1.3-7.7) k/uL Lymphocytes # 0.5 L (1.0-4.8) k/uL Sodium 134 L (137-145) mmol/L Glucose 123 H (74-99) mg/dL Assessment and Plan Plan: Assessment: #1. Right hilar mass with extensive adenopathy and liver metastasis, patient is status post bronchoscopy with right lung biopsy, awaiting final pathology report #2. 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 Metastatic liver lesions highly suspicious for underlying malignancy, consider underlying primary lung cancer #4. Ileus versus partial small bowel obstruction please refer to the computed tomography scan of the abdomen, Gen. surgery is on the case, patient's stomach was decompressed via an NG tube, currently NG tube has been discontinued, no nausea or vomiting. #5. Abnormal troponin with mild elevation without evidence of an acute ischemic event #6. Hyperlipidemia #7. Remote history of breast cancer on the left status post lumpectomy followed by radiation therapy followed by tamoxifen treatment for a total of 5 years #8. History of smoking, carries 64-xigh-xycy smoking history, currently on a nicotine patch Plan: Lung biopsy results are still pending at this time On today's exam patient states she feels congested, but sounds less b ronchospastic on physical exam Continue bronchodilators, continue IV steroids, antibiotics have been added as well Patient is tolerating oral intake, she is passing bowel movements Bowel sounds 4, general surgeries on the case We'll continue to follow I performed a history & physical examination of the patient and discussed their management with my nurse practitioner, Rosina Hurtado. I reviewed the nurse practitioner's note and agree with the documented findings and plan of care. Lung sounds are positive for diffuse wheezes throughout the lung muro. The findings and the impression was discussed with the patient. I attest to the documentation by the nurse practitioner. Time with Patient: Less than 30
[2021-06-16] MEDS: LEVOFLOXACIN 500MG-D5W PMX 500 MG in DEXTROSE/WATER 1 100ML.BAG IVPB SCH (12:17)
[2021-06-16] MEDS: ONDANSETRON 4 MG/2 ML VIAL IVP PRN (13:54)
--- NOTE | 2021-06-16 14:13 | CDI ---
Documentation Clarification Form Date: 06/16/2021 01:49:16 PM From: Shanelle Kyle CCS, CCDS Admit Date: 06/09/2021 07:04:00 AM Patient Name: Olga Flynn Visit Number: [id number] Discharge Date: ATTENTION: The Clinical Documentation Specialists (CDI) and [facility] Coding Staff appreciate your assistance in clarifying documentation. Please respond to the clarification below the line at the bottom and electronically sign. The CDI & [facility] Coding staff will review the response and follow-up if needed. Please note: Queries are made part of the Legal Health Record. If you have any questions, please contact the author of this message via ITS. Dr. Michael Church: Per the 06/09 History & Physical and subsequent Attending Physician Progress Notes 06/10, 06/11, 06/14 & 06/15: Hypoxic, O2 Sat 87% on RA, currently high 90's to 100% on 2Lnc. Based on this information and the findings below, is there an additional diagnosis that is clinically appropriate for this patient? History/Risk Factors per the 06/09 H/P: Left Breast Cancer status post Lumpectomy and Radiation, Osteoarthritis bilateral hands, Benign Colon Polyps, Hiatal hernia, Hard of Hearing, Tinnitus, Sinus problems. Current smoker. Clinical Indicators: Presented to the ED on 06/08 with Nausea, Vomiting and Diarrhea, onset 5 days prior. The patient recently had several teeth pulled. Had mild abdominal discomfort. Has had limited oral intake since teeth extraction. Admit with Abdominal Pain & Vomiting. 06/08 VS: T 97.9, P 92, R 20, BP 156/91, PO 96 RA - 92 RA 06/09 VS: T 98.8, P 92, R 18, BP 144/71, PO 87 RA - 94 2Lnc 06/08 LAB: Na 128, Chloride 87, CO2 30, BUN 24, AST 50, Troponin 0.097, Lipase 311 06/09 LAB: Na 130, K 3.4, CO2 25, BUN 19, Troponin 0.130 06/08 CT Abdomen/Pelvis: SBO, new. Multiple hypodense liver lesions suggestive of metastatic disease, new. 06/09 CXR: Difficult to exclude right hilar mass. 06/10 CT Chest: Large right hilar mass with mediastinal invasion to thoracic inlet consistent with primary lung neoplasm. Treatment 06/08: Telemetry, IV Pepcid 20 mg x1, IV Morphine 4 mg x2, IV Zofran 4 mg x2, IV Na Cl 1,000 mls @ 999 mls/hr q1H. 06/09: IV Protonix 40 mg Daily, IV Heparin Drip, IV Zofran 4 mg q6H/prn, Habitrol patch Daily, O2 2Lnc. 06/10 INH Duoneb 3ml QID 06/10: Pulmonary consult regarding Lung Mass. Hx COPD with emphysematous changes in the upper lobes bilaterally, Breast Cancer, Current smoker 1ppd for many years. Is there an additional diagnosis that is clinically appropriate for this patient? [ ] Acute Hypoxic Respiratory Failure [ ] Acute on Chronic Respiratory Failure [ ] Chronic Respiratory Failure [ ] Acute Respiratory Insufficiency [ x ] Other Diagnosis, please specify:_as stated on previous inquiry, this patient has a history of non-compliance, however she presented to the hospital with abdominal pain and what appears to be a mechanical ileus associated with anesthetic used for a recent oral surgical procedure, early diagnostic testing demonstrated a new neoplasm to the lung with multiple distal mets, including liver, GI tract from mouth to rectum, this is creating a very confusing diagnostic picture. Poor prognosis DX should include advanced metastatic lung cancer. [ ] Unable to determine (Template Last Revised: July 2020) MTDD
--- NOTE | 2021-06-16 15:36 | XR ---
EXAMINATION TYPE: XR chest 1V portable DATE OF EXAM: 06/16/2021 COMPARISON: Chest x-ray 06/14/2021 HISTORY: NG tube placement TECHNIQUE: Single frontal view of the chest is obtained. FINDINGS: NG tube has withdrawn in the interval, distal tip is at the level of the distal esophagus cephalad to the level of hemidiaphragm on the left. Central density in the right mid lung, atelectasi s, volume loss with elevation of right hemidiaphragm are all again noted. Postop changes are noted wi th surgical clips in the left breast. No evident pneumothorax. Aorta is dense. IMPRESSION: NG tube as described. Right hilar mass.
--- NOTE | 2021-06-16 15:49 | P.PN ---
Subjective Progress Note Date: 06/16/21 Principal diagnosis: Lung mass In f/u today pt sitting a up side of bed, no BM yet, feels like all that is happening to her is too much. Denies fever, vomiting, appetite/oral intake is poor, abd feels full. Objective - Vital Signs Vital signs: Vital Signs Temp 98.2 F 06/16/21 11:37 Pulse 91 06/16/21 11:37 Resp 17 06/16/21 11:37 BP 150/90 06/16/21 11:37 Pulse Ox 93 L 06/16/21 11:37 Intake & Output 06/15/21 06/16/21 06/16/21 18:59 06:59 18:59 Intake Total 2360 700 600 Output Total 2 2 Balance 2358 698 600 Weight 58.967 kg Intake: IV 300 Sodium Chloride 0.9% 1, 300 000 ml @ 100 mls/hr IV . Q10H BRENDA Rx#:[id number] Oral 2360 400 600 Output: Urine 2 2 Other: Voiding Method Bedside Commode Bedside Commode # Voids 3 - Constitutional General appearance: Present: average body habitus, cooperative, no acute distress - EENT Eyes: Present: anicteric sclerae, EOMI ENT: Present: hearing grossly normal - Respiratory Respiratory: bilateral: rales (R>L), wheezing - Cardiovascular Rhythm: regular Heart sounds: normal: S1, S2 - Gastrointestinal General gastrointestinal: Present: distended, soft - Integumentary Integumentary: Present: normal - Neurologic Neurologic: Present: CNII-XII intact - Musculoskeletal Musculoskeletal: Present: strength equal bilaterally - Psychiatric Psychiatric: Present: A&O x's 3, appropriate affect, intact judgment & insight - Labs CBC & Chem 7: 06/16/21 07:18 06/16/21 07:18 Labs: Abnormal Lab Results - Last 24 Hours (Table) 06/16/21 06/16/21 Range/Units 07:18 07:18 WBC 10.9 H (3.8-10.6) k/uL Neutrophils # 9.7 H (1.3-7.7) k/uL Lymphocytes # 0.5 L (1.0-4.8) k/uL Sodium 134 L (137-145) mmol/L Glucose 123 H (74-99) mg/dL Assessment and Plan (1) Liver lesion Current Visit: Yes Status: Acute Priority: High Code(s): K76.9 - LIVER DISEASE, UNSPECIFIED SNOMED Code(s): 730522070 (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 Mgmt by Surgery. Unknown cause. Patient does report chronic constipation. Still no BM Current Visit: Yes Status: Acute Priority: High Code(s): K56.609 - UNSP INTESTNL OBST, UNSP TO PARTIAL VERSUS COMPLETE OBST SNOMED Code(s): 864608681 (4) Breast cancer Narrative/Plan: Hx >10 years ago. Possible, but less likely, presentation is metastatic from breast cancer. Will await biopsy results. Current Visit: No Status: Chronic Priority: Medium Code(s): C50.919 - MALIGNANT NEOPLASM OF UNSP SITE OF UNSPECIFIED FEMALE BREAST SNOMED Code(s): 072684678 Plan: Patient is status post bronchoscopy and biopsy with Dr. Reid 06/11. Pending pathology results. MRI brain and neck today. Contacted by IM MATERIAL REQUIREMENTS PLANNING MANAGER. DDS reported to PCP findings s uggestive of pathology in pt gums, recommended including face and neck in MRI. Put request in comments on MRI order to please report on jaw.
--- NOTE | 2021-06-16 19:00 | P.PN ---
Progress Note - Text Progress Note Date: 06/16/21 The patient was evaluated earlier today and was doing well as dictated in previous progress note. However, this afternoon, I was alerted by the nurse that the patient had multiple episodes of emesis and I requested nasogastric tube placement. Initially, patient refuses nasogastric tube, however she did agree to nasogastric tube placement after discussion with her daughter. The patient had approximately 1300 mL of dark fluid that has drained since placement approximately 2 hours ago. At this point, there is significant concern of a partial versus complete small bowel obstruction as the patient has had some flatus episodes over the past few days, however has not had a complete bowel mo vement. Although, the patient was clinically appearing to improve, the significant output from the nasogastric tube today is concerning. I did discuss the case in depth with the patient and the patient's family at bedside and I do recommend exploratory laparotomy for further evaluation. There is concern that secondary to finding of metastatic disease, there may be metastatic cause of obstruction. Patient and patient's family are agreeable to the plan for surgical exploration. Risks, benefits and alternatives were provided to the patient and the patient's family. We will plan for procedure tomorrow as the patient is currently stable and decompressed with nasogastric tube.
[2021-06-16] MEDS: GABAPENTIN 400 MG CAP PO SCH (19:48)
[2021-06-17] MEDS: MORPHINE SULFATE 4 MG/ML SYRINGE IV PRN ×4 (02:13→23:14)
[2021-06-17] MEDS: SODIUM CHLORIDE 0.9% 1,000 ML IV SCH ×2 (02:18→18:23)
[2021-06-17] MEDS: PANTOPRAZOLE 40 MG/10 ML VIAL IV SCH (08:51)
[2021-06-17] MEDS: methylPREDNISolone SOD SUCCI 40 MG/ML 1 ML VIAL IV SCH ×3 (08:51→23:12)
[2021-06-17] MEDS: BUDESONIDE 1 MG/2 ML NEBU INHALATION SCH ×2 (09:02→20:33)
[2021-06-17] MEDS: FORMOTEROL FUMARATE 20 MCG/2 ML NEBU INHALATION SCH ×2 (09:02→20:33)
[2021-06-17] MEDS: IPRATROPIUM-ALBUTEROL 3 ML NEB INHALATION SCH ×4 (09:02→20:33)
--- NOTE | 2021-06-17 09:55 | P.PN ---
Subjective Progress Note Date: 06/17/21 Principal diagnosis: right hilar mass 75-year-old female patient I'm seeing her for a right hilar mass and possibility of a malignancy. The patient had ptosis fraction approximately 5 days ago. Since then, the patient started having some abdominal pain and nausea and emesis. The patient stated that she had not had any bowel movement approximately 3-4 days prior to her hospital admission. She was passing flatus. No nausea. No emesis. She came into the hospital the CAT scan of the abdomen was done and was concerning for a small bowel obstruction along with multiple hypodense liver lesions suggestive of metastatic disease. Chest x-ray also showed a right hilar mass. The patient is also known to have COPD and previous history of breast cancer. She has undergone a left breast lumpectomy followed by radiation therapy. The pulmonary consultation was requested accordingly. Initially the patient was kept nothing by mouth and currently the patient is allowed to take some clear liquid diet. NG tube has not been placed. Note that the patient also had a low dose of the chest for lung cancer screening back in 2019 and back then there was no evidence of any malignancy. The patient smokes approximately half to 1 pack of cigarettes and she's been smoking for many years. She has been smoking for at least 50 years for now. She does not use oxygen. She does not use any form of respiratory medications or inhalers. She has taken COVID 19 vaccination 2. He COVID 19 testing was negative during this current admission. 06/13/2021, the patient is comfortable in terms of her breathing. The patient undergone biopsy of the lung and the results pending for now with a high suspicion for lung cancer. This is likely metastatic in nature. Meanwhile, the patient is also having issues with bowel obstruction. General surgeries on the case. NG tube is in place. The output from the NG tube has dropped over the past 24 hours. Patient is passing some limited amount of flatus. Abdomen slightly distended. General surgeries on the case and there weren't to put the patient into bowel rest and gastric decompression for another 24 hours. White cell count is at 10.7 with a hemoglobin of 15.6, BUN is at 6 with a creatinine of 0.6 and the sodium level is at 137. She is awake and alert. She is following commands. CAT scan of the brain was also negative for any metastases. Flat some of the abdomen today shows stable findings and the findings with reflect mid to distal small bowel obstruction Reevaluated today on 11/2021, patient is about the same, continues to have intermittent episodes of cough and wheezing and shortness of breath. Patient most likely has lung cancer with metastasis. Results of her lung biopsy are pending. Hopefully we'll have the results in the next 24 hours. Otherwise the patient seems to be doing fairly well, no nausea no vomiting no abdominal pain. WBC count today is 11.8 hemoglobin 13.6 electrolytes are normal except for potassium of 3.1. Renal profile is normal On the 06/15/2021 patient seen in follow-up on selective care unit, she is awake and alert, in no distress, still bit congested, coughing, not producing much phlegm. She is on room air, lung sounds reveal some diffuse wheezes and rhonchi. She remains on DuoNeb. No nausea or vomiting, NG tube has been on for a couple of days now, abdomen is soft, bowel sounds are positive 4. Patient is tolerating clear liquid diet. Patient is status post bronchoscopy with lung biopsy and the results are still pending at this time. No new labs today. On 06/16/2021 patient seen in follow-up on selective care unit, she is awake and alert, in no acute distress, she is on room air pulse ox is 94%, afebrile, hemodynamically she stable. Lung biopsy results are still pending at this time, yesterday patient was bronchospastic, COPD was active, we added steroids and bronchodilators. Last chest x-ray from 06/14/2021 showed right hilar prominence consistent with mass, superimposed interstitial asymmetric edema or pneumonitis. Today's labs have been reviewed, white blood cell count is 10.9, hemoglobin is 13.2, sodium is 134, potassium is 3.7, chloride is 103, the rest of the electrodes and renal profile were unremarkable. Patient is currently on IV Solu-Medrol 40 mg every 8 hours, and very conversant form of Levaquin were added, and patient is on nebulized bronchodilators. Lung sounds reveal coarse rhonchi, patient is less bronchospastic on today's exam. Her abdomen is soft, nontender, she's been tolerating full liquid diet, although her appetite is still poor. She has passed bowel movements, surgical services are on the case and following closely On 06/17/2021 patient seen in follow-up on selective care unit, yesterday afternoon she continued to have abdominal discomfort, cramping, she became nauseous, her abdomen was becoming more distended, NG tube has been reinserted and connected to low intermittent suction. After NG tube was placed approximately 1300 mL of dark fluid was drained. The surgical services are following, and there was a significant concern about a partial versus complete small bowel obstruction. Patient has had some flatus over the past few days however has not been able to have a complete bowel movement. Bowel sounds are absent on today's exam, abdomen is still distended but not tight. Patient is having some abdominal discomfort relieved with IV medications. She states her breathing is about the same, with some congestion, lung sounds are positive for some scattered wheezing and rhonchi. We added IV steroids and breathing treatments with some improvement in her symptoms. Currently not requiring any supplemental oxygen. Surgical services have recommended proceeding with expiratory laparotomy for further evaluation and patient has been scheduled for it today. She remains nothing by mouth, NG tube is in place for bowel decompression. Her mediastinal lymph node biopsies showed positive biopsy for non-small cell lung cancer in station 7, and station 4R is pending cellblock analysis. Right upper lobe transbronchial biopsy was positive for poorly differentiated non-small cell lung cancer. Medical oncology is following, pending further recommendations Objective - Vital Signs Vital signs: Vital Signs Temp 98.8 F 06/17/21 04:00 Pulse 80 06/17/21 09:31 Resp 19 06/17/21 04:00 BP 158/88 06/17/21 04:00 Pulse Ox 93 L 06/17/21 04:00 Intake & Output 06/16/21 06/17/21 06/17/21 18:59 06:59 18:59 Intake Total 600 50 Output Total 1100 500 Balance -500 -450 Weight 58.967 kg Intake: Oral 600 50 Output: Gastric Drainage 1100 500 Other: Voiding Method Bedside Commode # Voids 2 - Exam GENERAL EXAM: Alert, very pleasant, 75-year-old white female, on room air, with intermittent coughing and wheezing with NG tube in place, to low intermittent suction, comfortable in no apparent distress. HEAD: Normocephalic/atraumatic. EYES: Normal reaction of pupils, equal size. Conjunctiva pink, sclera white. NOSE: Clear with pink turbinates. THROAT: No erythema or exudates. NECK: No masses, no JVD, no thyroid enlargement, no adenopathy. CHEST: No chest wall deformity. Symmetrical expansion. LUNGS: Equal air entry with diffuse rhonchi, and wheezing CVS: Regular rate and rhythm, normal S1 and S2, no gallops, no murmurs, no rubs ABDOMEN: Soft, nontender. No hepatosplenomegaly, normal bowel sounds, no gu arding or rigidity. EXTREMITIES: No clubbing, no edema, no cyanosis, 2+ pulses and upper and lower e xtremities. MUSCULOSKELETAL: Muscle strength and tone normal. SPINE: No scoliosis or deformity SKIN: No rashes CENTRAL NERVOUS SYSTEM: Alert and oriented -3. No focal deficits, tone is normal in all 4 extremities. PSYCHIATRIC: Alert and oriented -3. Appropriate affect. Intact judgment and insight. - Labs CBC & Chem 7: 06/16/21 07:18 06/16/21 07:18 Assessment and Plan Plan: Assessment: #1. Right hilar mass with extensive adenopathy and liver metastasis, patient is status post bronchoscopy with right lung biopsy, right upper lobe transbronchial biopsy was positive for poorly differentiated non-small cell lung cancer, EBUS FNA of station 4R is pending cellblock analysis, station 7 is positive for non- small cell lung cancer #2. 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 Metastatic liver lesions highly suspicious for underlying malignancy, consider underlying primary lung cancer #4. Ileus versus partial small bowel obstruction please refer to the computed tomography scan of the abdomen, Gen. surgery is on the case, patient's stomach was decompressed via an NG tube, NG tube was removed however reinserted on 06/16/2021 for recurrence of nausea and vomiting, patient is scheduled for exploratory laparotomy today on 06/17/2021 #5. Abnormal troponin with mild elevation without evidence of an acute ischemic event #6. Hyperlipidemia #7. Remote history of breast cancer on the left status post lumpectomy followed by radiation therapy followed by tamoxifen treatment for a total of 5 years #8. History of smoking, carries [id number] smoking history, currently on a nicotine patch Plan: Continue current medical treatment Continue neb. treatments and steroids NGT placed back in, patient is scheduled for Explor laparotomy Lung and mediastinal lymph node biopsies positive for NSCLC, stage IV Medical oncology recommendations Will follow patient's clinical course in the post-op period I performed a history & physical examination of the patient and discussed their management with my nurse practitioner, Rosina Hurtado. I reviewed the nurse practitioner's note and agree with the documented findings and plan of care. Lung sounds are positive for diffuse wheezes throughout the lung muro. The findings and the impression was discussed with the patient. I attest to the documentation by the nurse practitioner. Time with Patient: Less than 30
--- NOTE | 2021-06-17 12:32 | P.PN ---
Subjective Progress Note Date: 06/16/21 This is a pleasant 75-year-old female, Covid vaccinated X 2, hard of hearing, left breast cancer with lumpectomy/radiation, arthritis with past medical history of nicotine dependence-has smoked since she was a teen and is currently at a half pack per day, hiatal hernia presented to the ER with mid epigastric abdominal pain, constipation, nausea, vomiting of dk. brown emesis. Patient reports on last Monday she had [address] Ramirez secondary to gingivitis. Postprocedure she found it very difficult to eat and drink. Sodium 128 to 1:30, BUN ranging from 11-7, creatinine 0.82. Reports she is not passing any flatus ,with no bowel movement since her teeth extraction. Tested negative for Coronavirus. Hypoxic, O2 sat 87% on room air currently high 90s to 100% on 2 L nasal cannula. Denies any chest pain, chest pressure, or shortness of breath. Troponin 0.097, 0.151. Evaluated by cardiology, echo pending. EKG reporting normal sinus rhythm. Chest x-ray pending. CT of abdomen and pelvis reporting new multiple hypodense liver lesions suggestive of metastatic disease measuring up to 4 cm, will require further monitoring/workup outpatient, dilated small bowel with fluid suggestive of new mechanical small bowel obstruction, transition point not identified. LFTs within normal limits with the exception of AST mildly elevated ,50. Lipase 311. Afebrile, normal WBC. UA Negative. H emoglobin 14.7, platelets 289, PT 9.8, INR 0.9. Received IV fluids, antiemetics, morphine and PPI, feeling better. 06/10/2021 no bowel movement, patient reports passing flatus .no further nausea or vomiting .reports abdominal pain improving . NG tube on hold at this time as per surgery .clear liquid diet initiated .maintained on nebulized bronchodilators, nicotine patch , maintaining O2 sats in the 90s on room air.Chest x-ray reporting possible right hilar mass, the patient with history of breast cancer. Evaluated by pulmonary, chest CT ordered. Telemetry sinus rhythm, denies chest pain, palpitations, heparin drip discontinued as per cardiology. 06/11/[address] reported confirmation of large right hilar mass with mediastinal and patient up to the level of the thoracic inlet consistent with primary lung neoplasm, consider small cell carcinoma, metastatic disease to the liver redemonstrated.NPO, scheduled for bronchoscopy with lung biopsy. Fluctuating confusion, easily forgets, difficulty at times recalling past events; couldn't remember what her daughter does for a living. Denies chest pain, palpitations or shortness of breath. Maintaining O2 sats in the 90s on room air. Denies further nausea or vomiting, positive bowel movement today, loose, passing flatus. 06/14/2021 minimal NG tube drainage overnight, passing flatus, no bowel movement. Denies nausea vomiting or abdominal pain. Status post bronchoscopy, pathology, cultures pending. Afebrile, WBC 11.8. Potassium 3.1, renal function stable.Computed tomography scan of brain reported no evidence of metastatic disease. 06/15/2021 chest x-ray from yesterday afternoon reporting right hilar prominence consistent with mass, superimposed interstitial asymmetric edema or pneumonitis. Maintaining O2 sats in the 90s on room air. Afebrile. Potassium 3.2. Bronchoscopy pathology/ cultures pending. Evaluated by oncology with recommendations noted and appreciated. PT evaluation pending. 06/16/2021 MRI of brain and neck/jaw pending. Maintained on full liquid diet, consuming 25% with "full" sensation.denies nausea or vomiting. Denies abdominal pain. Passing flatus. No bowel movement-patient reports chronic constipation. Denies chest pain, palpitations, reports shortness of breath. Maintaining O2 sats in the 90s on room air. Audible congestion. Lung pathology pending. 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 Objective - Vital Signs Vital signs: Vital Signs Temp 98.0 F 06/16/21 07:02 Pulse 95 06/16/21 07:58 Resp 16 06/16/21 07:02 BP 155/94 06/16/21 07:02 Pulse Ox 94 L 06/16/21 07:02 Intake & Output 06/15/21 06/16/21 06/16/21 18:59 06:59 18:59 Intake Total 2360 700 360 Output Total 2 2 Balance 2358 698 360 Intake: IV 300 Sodium Chloride 0.9% 1, 300 000 ml @ 100 mls/hr IV . Q10H [facility] Rx#:[id number] Oral 2360 400 360 Output: Urine 2 2 Other: Voiding Method Bedside Commode Bedside Commode # Voids 3 - Exam PHYSICAL EXAM: VITAL SIGNS: [As above] GENERAL: Alert and oriented 3,Sitting up in bed HEENT: Conjunctivae normal. eyes normal. 3 teeth recently extracted. NECK: No JVD. No thyroid enlargement. No LNs CARDIOVASCULAR: S1, S2 regular. Systolic murmur RESPIRATION: Breath sounds coarse bilateral rhonchi , loose congestion, expiratory wheezing with right basilar crackles. ABDOMEN: Soft, nontender, distended,No guarding. no masses palpable.Bowel sounds heard. LEGS: No edema. no swelling NERVOUS SYSTEM: Cranial N 2-12 grossly normal. No focal deficits. Strength and sensation grossly intact. Skin: Warm and dry, no rash - Labs CBC & Chem 7: 06/16/21 07:18 06/16/21 07:18 Labs: Abnormal Lab Results - Last 24 Hours (Table) 06/16/21 06/16/21 Range/Units 07:18 07:18 WBC 10.9 H (3.8-10.6) k/uL Neutrophils # 9.7 H (1.3-7.7) k/uL Lymphocytes # 0.5 L (1.0-4.8) k/uL Sodium 134 L (137-145) mmol/L Glucose 123 H (74-99) mg/dL Assessment and Plan Assessment: Mechanical ileus, possible small bowel obstruction in a patient with 3 teeth extracted 5 days ago, with Dr. Ramirez-oral surgeon; minimal oral intake post procedure, on antibiotics, NSAIDs and opioids, with nausea, dark brown emesis and mid epigastric pain. Reports no flatus, no bowel movement 4-[address] reports dilated small bowel with fluid suggestive of new mechanical small bowel obstruction, transition point not identified. NG tube for decompression. 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 Mildly elevated lipase Right hilar mass confirmed per chest CT, status post bronchoscopy -pathology pending. Atelectasis, possible pneumonitis Multiple hypodense liver lesions suggestive of metastatic disease To [address], in a patient with history of left breast CA with lumpectomy, radiation ;further workup, monitoring outpatient Hypovolemic hyponatremia secondary to #1 Hypokalemia Metabolic encephalopathy secondary to all the above, possible metastatic, brain CT did not report brain metastases, MRI pending Elevated troponins, without chest pain reported, no acute ischemic event as per Cardiology. EF greater than 55% Moderate mitral regurgitation mild pulmonary hypertension COPD with underlying emphysema Nicotine dependence, extensive, [id number] Occasional alcohol use Arthritis Plan: Continue on current medication regime ,monitoring and symptomatic treatment. MRI pending. Lung bx/pathology pending.Continues to have no bowel movement, no diet advancement today .aggressive pulmonary toileting with nebulized bronchodilators, steroids with incentive spirometer reinforced .Prognosis guarded given multiple complex medical issues. The impression and plan of care has been dictated as directed. : I performed a history and examination of this patient, discussed the same with the dictator. I agree with the dictator's note ,documented as a scribe. Any additional findings or plans will be noted.
--- NOTE | 2021-06-17 13:12 | P.PN ---
Subjective Progress Note Date: 06/17/21 This is a pleasant 75-year-old female, Covid vaccinated X 2, hard of hearing, left breast cancer with lumpectomy/radiation, arthritis with past medical history of nicotine dependence-has smoked since she was a teen and is currently at a half pack per day, hiatal hernia presented to the ER with mid epigastric abdominal pain, constipation, nausea, vomiting of dk. brown emesis. Patient reports on last Monday she had [address] Ramirez secondary to gingivitis. Postprocedure she found it very difficult to eat and drink. Sodium 128 to 1:30, BUN ranging from 11-7, creatinine 0.82. Reports she is not passing any flatus ,with no bowel movement since her teeth extraction. Tested negative for Coronavirus. Hypoxic, O2 sat 87% on room air currently high 90s to 100% on 2 L nasal cannula. Denies any chest pain, chest pressure, or shortness of breath. Troponin 0.097, 0.151. Evaluated by cardiology, echo pending. EKG reporting normal sinus rhythm. Chest x-ray pending. CT of abdomen and pelvis reporting new multiple hypodense liver lesions suggestive of metastatic disease measuring up to 4 cm, will require further monitoring/workup outpatient, dilated small bowel with fluid suggestive of new mechanical small bowel obstruction, transition point not identified. LFTs within normal limits with the exception of AST mildly elevated ,50. Lipase 311. Afebrile, normal WBC. UA Negative. H emoglobin 14.7, platelets 289, PT 9.8, INR 0.9. Received IV fluids, antiemetics, morphine and PPI, feeling better. 06/10/2021 no bowel movement, patient reports passing flatus .no further nausea or vomiting .reports abdominal pain improving . NG tube on hold at this time as per surgery .clear liquid diet initiated .maintained on nebulized bronchodilators, nicotine patch , maintaining O2 sats in the 90s on room air.Chest x-ray reporting possible right hilar mass, the patient with history of breast cancer. Evaluated by pulmonary, chest CT ordered. Telemetry sinus rhythm, denies chest pain, palpitations, heparin drip discontinued as per cardiology. 06/11/[address] reported confirmation of large right hilar mass with mediastinal and patient up to the level of the thoracic inlet consistent with primary lung neoplasm, consider small cell carcinoma, metastatic disease to the liver redemonstrated.NPO, scheduled for bronchoscopy with lung biopsy. Fluctuating confusion, easily forgets, difficulty at times recalling past events; couldn't remember what her daughter does for a living. Denies chest pain, palpitations or shortness of breath. Maintaining O2 sats in the 90s on room air. Denies further nausea or vomiting, positive bowel movement today, loose, passing flatus. 06/14/2021 minimal NG tube drainage overnight, passing flatus, no bowel movement. Denies nausea vomiting or abdominal pain. Status post bronchoscopy, pathology, cultures pending. Afebrile, WBC 11.8. Potassium 3.1, renal function stable.Computed tomography scan of brain reported no evidence of metastatic disease. 06/15/2021 chest x-ray from yesterday afternoon reporting right hilar prominence consistent with mass, superimposed interstitial asymmetric edema or pneumonitis. Maintaining O2 sats in the 90s on room air. Afebrile. Potassium 3.2. Bronchoscopy pathology/ cultures pending. Evaluated by oncology with recommendations noted and appreciated. PT evaluation pending. 06/16/2021 MRI of brain and neck/jaw pending. Maintained on full liquid diet, consuming 25% with "full" sensation.denies nausea or vomiting. Denies abdominal pain. Passing flatus. No bowel movement-patient reports chronic constipation. Denies chest pain, palpitations, reports shortness of breath. Maintaining O2 sats in the 90s on room air. Audible congestion. Lung pathology pending. 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 06/17/2021 during the night patient's abdomen became more distended, nausea and vomiting reoccurred, increased abdominal cramping, NG tube reinserted. NPO,scheduled for exploratory laparotomy today. Unable to auscultate bowel sounds today. Pain controlled with current IV pain return. Continues with audible congestion, maintaining O2 sats in the low 90s on room air.Right upper lobe transbronchial biopsy reporting positive for poorly differentiated non- small cell lung cancer/Cytology reporting positive for non-small cell CA with designated 4R adequacy pending cell block. Afebrile, WBC 10.9. Sodium 134, potassium 3.7,renal function stable Objective - Vital Signs Vital signs: Vital Signs Temp 97.8 F 06/17/21 10:26 Pulse 88 06/17/21 12:01 Resp 20 06/17/21 10:26 BP 177/110 06/17/21 10:26 Pulse Ox 90 L 06/17/21 10:26 Intake & Output 06/16/21 06/17/21 06/17/21 18:59 06:59 18:59 Intake Total 600 50 Output Total 1100 500 150 Balance -500 -450 -150 Weight 58.967 kg Intake: Oral 600 50 Output: Gastric Drainage 1100 500 150 Other: Voiding Method Bedside Commode Bedside Commode # Voids 2 - Exam PHYSICAL EXAM: VITAL SIGNS: [As above] GENERAL: Alert and oriented 3,Sitting up in bed HEENT: Conjunctivae normal. eyes normal. 3 teeth recently extracted. NG tube present. NECK: No JVD. No thyroid enlargement. No LNs CARDIOVASCULAR: S1, S2 regular. Systolic murmur RESPIRATION: Breath sounds coarse bilateral rhonchi , loose congestion, expiratory wheezing with right basilar crackles. ABDOMEN: Soft, nontender, distended,No guarding. no masses palpable.Bowel sounds heard. LEGS: No edema. no swelling NERVOUS SYSTEM: Cranial N 2-12 grossly normal. No focal deficits. Strength and sensation grossly intact. Skin: Warm and dry, no rash - Labs CBC & Chem 7: 06/16/21 07:18 06/16/21 07:18 Assessment and Plan Assessment: Mechanical ileus, possible small bowel obstruction in a patient with 3 teeth extracted 5 days ago, with Dr. Ramirez-oral surgeon; minimal oral intake post procedure, on antibiotics, NSAIDs and opioids, with nausea, dark brown emesis and mid epigastric pain. Reports no flatus, no bowel movement 4-[address] reports dilated small bowel with fluid suggestive of new mechanical small bowel obstruction, transition point not identified. NG tube for decompression. 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 Mildly elevated lipase Right hilar mass confirmed per chest CT, status post bronchoscopy. Lung and mediastinal Pathology/cytology reporting positive for non-small cell lung CA with possible lymphovasc. invasion Atelectasis, possible pneumonitis Multiple hypodense liver lesions suggestive of metastatic disease To [address], in a patient with history of left breast CA with lumpectomy, radiation ;further workup, monitoring outpatient Hypovolemic hyponatremia secondary to #1 Hypokalemia, resolved Metabolic encephalopathy secondary to all the above, possible metastatic, brain CT did not report brain metastases, MRI pending Elevated troponins, without chest pain reported, no acute ischemic event as per Cardiology. EF greater than 55% Moderate mitral regurgitation mild pulmonary hypertension COPD with underlying emphysema Nicotine dependence, extensive, [id number]-[id number] Occasional alcohol use Arthritis Plan: Continue on current medication regime ,monitoring and symptomatic treatment. Exploratory laparotomy pending. MRI pending.aggressive pulmonary toileting with nebulized bronchodilators, steroids with incentive spirometer reinforced .Prognosis guarded given multiple complex medical issues. The impression and plan of care has been dictated as directed. : I performed a history and examination of this patient, discussed the same with the dictator. I agree with the dictator's note ,documented as a scribe. Any additional findings or plans will be noted.
[2021-06-17] MEDS ORDERED: ENALAPRILAT 1.25 MG/ML 1 ML VIAL IVP PRN (13:52)
[2021-06-17] MEDS: ENALAPRILAT 1.25 MG/ML 1 ML VIAL IVP SCH ×3 (14:06→23:14)
--- NOTE | 2021-06-17 15:24 | P.PN ---
Subjective Progress Note Date: 06/17/21 Principal diagnosis: Lung mass, path positive for malignancy In f/u today pt has NG back in place. Plan if for surgical intervention of bowel obstruction. No BM. Denies fever. Objective - Vital Signs Vital signs: Vital Signs Temp 97.6 F 06/17/21 12:00 Pulse 88 06/17/21 12:01 Resp 18 06/17/21 12:00 BP 177/86 06/17/21 13:57 Pulse Ox 93 L 06/17/21 12:00 Intake & Output 06/16/21 06/17/21 06/17/21 18:59 06:59 18:59 Intake Total 600 50 Output Total 1100 500 150 Balance -500 -450 -150 Weight 58.967 kg Intake: Oral 600 50 Output: Gastric Drainage 1100 500 150 Other: Voiding Method Bedside Commode Bedside Commode # Voids 2 1 - Constitutional General appearance: Present: average body habitus, cooperative, no acute distress - EENT Eyes: Present: anicteric sclerae, EOMI ENT: Present: hearing grossly normal - Respiratory Respiratory: bilateral: CTA - Cardiovascular Rhythm: regular Heart sounds: normal: S1, S2 Abnormal Heart Sounds: Absent: systolic murmur, diastolic murmur, rub, S3 Gallop, S4 Gallop, click, other - Gastrointestinal General gastrointestinal: Present: absent bowel sounds, distended, soft - Neurologic Neurologic: Present: CNII-XII intact - Musculoskeletal Musculoskeletal: Present: generalized weakness - Psychiatric Psychiatric: Present: A&O x's 3, appropriate affect, intact judgment & insight - Labs CBC & Chem 7: 06/16/21 07:18 06/16/21 07:18 Assessment and Plan (1) Liver lesion Current Visit: Yes Status: Acute Priority: High Code(s): K76.9 - LIVER DISEASE, UNSPECIFIED SNOMED Code(s): 819129566 (2) Neoplasm of hilus of right lung Current Visit: Yes Status: Acute Priority: High Code(s): D49.1 - NEOPLASM OF UNSPECIFIED BEHAVIOR OF RESPIRATORY SYSTEM SNOMED Code(s): 408070475 (3) Small bowel obstruction Narrative/Plan: NG back in, pt bowels have not moved. Plan for surgery. Unknown cause, pending surgical intervention and findings. Current Visit: Yes Status: Acute Priority: High Code(s): K56.609 - UNSP INTESTNL OBST, UNSP TO PARTIAL VERSUS COMPLETE OBST SNOMED Code(s): 070477267 (4) Breast cancer Narrative/Plan: Hx >10 years ago. Current Visit: No Status: Chronic Priority: Medium Code(s): C50.919 - MALIGNANT NEOPLASM OF UNSP SITE OF UNSPECIFIED FEMALE BREAST SNOMED Code(s): 645727080 Plan: Patient is status post bronchoscopy and biopsy with Dr. Reid 06/11. Pathology results positive for malignancy, poorly differentiated adenocarcinoma. Pathologist is sending for additional testing for clarification. We will request specimen for somatic NGS testing and PD-L1, may request NGS testing for clarification of primary. IM GEOSCIENCES PROFESSOR obtained DDS path results, adenocarcinoma. MRI brain and neck pending. Can be done outpt if needed as pt will not be able to start any treatment for at least 3-4 weeks post op. Doctor attests: I performed a history and physical examination of this patient, developed impression and plan of care, discussed with dictator. I agree with dictators note, documented as a scribe.
[2021-06-17] MEDS ORDERED: IV FLUID CONTINUATION 150 ML IV ONE (15:27)
[2021-06-17] MEDS ORDERED: LACTATED RINGERS 1,000 ML IV ONE ×2 (15:30→17:52)
[2021-06-17] MEDS ORDERED: LIDOCAINE 1% (10MG/ML) FOR IV START INTRADERMA ONE (15:40)
[2021-06-17] MEDS ORDERED: ROCURONIUM 10 MG/ML (5 ML VIAL) IV ONE (15:49)
[2021-06-17] MEDS ORDERED: LIDOCAINE 1% INJ 10MG/ML (20 ML MDV) ONE (15:49)
[2021-06-17] MEDS ORDERED: fentaNYL (PF) 50 MCG/ML 2 ML AMP ONE (15:49)
[2021-06-17] MEDS ORDERED: NEOSTIGMINE 1 MG/ML 10 ML VIAL ONE (15:49)
[2021-06-17] MEDS ORDERED: SUCCINYLCHOLINE CHLORIDE 100 MG/5 ML SYR IV ONE (15:49)
[2021-06-17] MEDS ORDERED: MIDAZOLAM 2 MG/2 ML VIAL ONE (15:49)
[2021-06-17] MEDS ORDERED: GLYCOPYRROLATE 0.2 MG/ML 2 ML VIAL ONE (15:49)
[2021-06-17] MEDS ORDERED: ONDANSETRON 4 MG/2 ML VIAL ONE (15:49)
[2021-06-17] MEDS ORDERED: DEXAMETHASONE SOD PHOSPHATE 4 MG/ML 1 ML VIAL ONE (15:49)
[2021-06-17] MEDS ORDERED: PROPOFOL 10 MG/ML 20 ML VIAL IV ONE (15:49)
[2021-06-17] MEDS ORDERED: IV FLUID CONTINUATION 1,000 ML IV ONE ×2 (15:53)
[2021-06-17] MEDS: HYDROmorphone 0.5 MG/0.5 ML SYRINGE IVP ONE ×2 (17:45→18:02)
--- NOTE | 2021-06-17 17:51 | P.OP ---
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 On workup, patient is found to have lung mass with concern for metastatic disease. She did undergo bronchoscopy with biopsy and was found to have poorly differentiated adenocarcinoma of non-small cell origin. Patient also incidentally had a tooth extraction performed a few days prior to her arrival and pathology from the gums also resulted with adenocarcinoma. Initially, the patient's small bowel obstruction didn't resolve as the patient began having bowel function with flatus, however she began having nausea and emesis episodes concerning for recurrent obstruction. Secondary to this, plan is for exploratory laparotomy. Risks, benefits and alternatives were provided to the patient and the patient's family. Consent was provided prior to the procedure. Operative Findings: Significant amount of metastatic disease to the liver and small bowel, resulting in obstruction Description of Procedure: The patient was brought into the operating room and placed in supine position on the operating table. Sedation was provided by anesthesia and the patient underwent endotracheal intubation. The patient was prepped and draped in regular sterile fashion. Vertical midline incision was made and dissection was carried to the fascia. The fascia was incised along the length of the incision. The small bowel was eviscerated from the abdomen and was noted to be significan tly distended. Beginning at the ligament of Treitz, the small bowel was evaluated distally. Multiple segments of the small bowel were noted to have a cancerous-appearing lesions. It was clear that a transition point was noted with significant metastatic disease of the small bowel. Exam of the small bowel was performed to the ileocolic valve. At this point, approximately 130 cm a small bowel would need to be resected or bypassed to avoid another complete obstruction. I did break scrub and discussed the case with the patient's family. This was quite tearful discussion. Explanation of the current bowel situation was provided to the patient's family on resection which would result with approximately 150 cm of small bowel and consideration for goals of care and palliative treatment due to the significant amount of metastatic disease. Patient's family wanted to move forward with continued resection of the small bowel, understanding risks of short gut syndrome and further obstruction and possible anastomotic breakdown due to any distal obstruction. And returning to the operating room, proximal and distal transection points were decided upon based on location of the metastatic disease and creating a patent channel for the small bowel. Transection was performed using 75 mm BETI stapler device. LigaSure device was then used to dissect the small bowel from the mesentery. This was sent as specimen. A [id number], functional end to end anastomosis was then created by firing the BETI 75 mm staple load. The resulting enterotomy was closed with a TX 60 stapler load. Imbricating 3-0 Vicryl sutures were then used over the staple line. The resulting rent in the mesentery was also closed with a running 3-0 Vicryl suture to prevent any internal herniation. At this point copious muss irrigation was placed and removed from the abdominal cavity. The bowel was returned to the abdominal cavity. The wound was then closed with a running looped PDS suture along the midline fascia. Skin leni were placed. Sterile dressing was applied. The patient was awakened in the operating suite and taken to postanesthesia care unit in stable condition. Postoperatively, the case was discussed with the oncology team and patient's primary care physician Dr. Church.
[2021-06-17] MEDS ORDERED: LABETALOL SYRINGE 5 MG/ML IVP ONE (17:57)
[2021-06-17] MEDS ORDERED: HYDROmorphone 0.5 MG/0.5 ML SYRINGE IVP ONE ×2 (18:21→18:43)
[2021-06-17] MEDS: ASPIRIN 81 MG PO SCH (18:24)
[2021-06-17] MEDS: LORATADINE 10 MG TAB PO SCH (18:24)
[2021-06-17] MEDS: LEVOFLOXACIN 500MG-D5W PMX 500 MG in DEXTROSE/WATER 1 100ML.BAG IVPB SCH (18:25)
[2021-06-17] MEDS: METOPROLOL TARTRATE 25 MG TAB PO SCH ×2 (18:25→21:34)
[2021-06-17] MEDS: PRAVASTATIN SODIUM 80 MG TAB PO SCH (18:25)
[2021-06-17] MEDS: NICOTINE 14MG/24HR PATCH TRANSDERM SCH (18:27)
[2021-06-17] MEDS: GABAPENTIN 400 MG CAP PO SCH (21:34)
[2021-06-18] MEDS: MORPHINE SULFATE 4 MG/ML SYRINGE IV PRN ×7 (04:13→23:46)
[2021-06-18] MEDS: SODIUM CHLORIDE 0.9% 1,000 ML IV SCH (04:14)
[2021-06-18] MEDS: ENALAPRILAT 1.25 MG/ML 1 ML VIAL IVP SCH ×4 (06:02→23:46)
[2021-06-18 08:29] LABS: Basophils % (A) 0 %; Eosinophils % (A) 0 %; HCT 40.4 % (34.0-46.0); HGB 13.6 gm/dL (11.4-16.0); Lymphocytes # (A) 0.6 k/uL (1.0-4.8); Lymphocytes % (A) 3 %; MCH 32.4 pg (25.0-35.0); MCHC 33.6 g/dL (31.0-37.0); MCV 96.4 fL (80.0-100.0); Mean Platelet Volume 7.3; Monocytes # (A) 0.8 k/uL (0-1.0); Monocytes % (A) 4 %; Neutrophils # (A) 18.2 k/uL (1.3-7.7); Neutrophils % (A) 92 %; Platelet Count 330 k/uL (150-450); RBC 4.19 m/uL (3.80-5.40); RDW 13.2 % (11.5-15.5); WBC 19.7 k/uL (3.8-10.6)
[2021-06-18] MEDS: methylPREDNISolone SOD SUCCI 40 MG/ML 1 ML VIAL IV SCH ×3 (08:33→23:46)
[2021-06-18] MEDS: NICOTINE 14MG/24HR PATCH TRANSDERM SCH (08:33)
[2021-06-18] MEDS: PANTOPRAZOLE 40 MG/10 ML VIAL IV SCH (08:33)
[2021-06-18 08:34] LABS: ALT 32 U/L (4-34); AST 57 U/L (14-36); African American GFR (CKD) >90 (>60 ml/min/1.73 sqM); Albumin 2.4 g/dL (3.5-5.0); Alkaline Phosphatase 33 U/L (38-126); Anion Gap 9 mmol/L; Blood Urea Nitrogen 17 mg/dL (7-17); Calcium 8.3 mg/dL (8.4-10.2); Carbon Dioxide 26 mmol/L (22-30); Chloride 99 mmol/L (98-107); Glucose 95 mg/dL (74-99); Non-African American GFR(CKD) 81 (>60 ml/min/1.73 sqM); Potassium 3.2 mmol/L (3.5-5.1); Sodium 134 mmol/L (137-145); Total Bilirubin 0.6 mg/dL (0.2-1.3)
[2021-06-18] MEDS: BUDESONIDE 1 MG/2 ML NEBU INHALATION SCH ×2 (09:00→20:26)
[2021-06-18] MEDS: IPRATROPIUM-ALBUTEROL 3 ML NEB INHALATION SCH ×4 (09:00→20:24)
[2021-06-18] MEDS: FORMOTEROL FUMARATE 20 MCG/2 ML NEBU INHALATION SCH ×2 (09:00→20:24)
--- NOTE | 2021-06-18 11:34 | P.PN ---
Subjective Progress Note Date: 06/18/21 Principal diagnosis: Right hilar mass The patient is seen today 06/18/2021 in follow-up on the selective care unit. Her lung biopsies did come back positive for poorly differentiated non-small cell carcinoma with features of adenocarcinoma. She is noted to have lesions on her liver as well. She had continued to have ongoing issues with abdominal discomfort and cramping and nausea and the nasogastric tube had been reinserted on 06/16/2021. She did have over a liter of dark fluid drained. She had been seen and evaluated by surgical services who took the patient in for an exploratory laparotomy yesterday. She was found to have metastatic disease to the small bowel resulting in obstruction and is status post small bowel resection. Postoperative day #1. Presently she is awake and alert resting fairly comfortably in bed. Still with some abdominal surgical discomfort. Nasogastric tube remains in place with 160 ML's output in the past 24 hours. Abdominal dressing is dry and intact. Maintaining O2 saturation in the 90s on 3 L/m per nasal cannula. White count 19.7. Hemoglobin 13.6. Sodium 134. Potassium 3.2. BUN 17. Creatinine 0.73. CA 153 antigen 1515. CA-125 antigen 7667. She remains on DuoNeb inhalations, IV Solu-Medrol, Perforomist and Perforomist inhalations. NicoDerm patches in place. Antibiotics in the form of Levaquin. She is encouraged regarding the increased use of the incentive spirometer and cough and deep breathing exercises. Objective - Vital Signs Vital signs: Vital Signs Temp 98.7 F 06/18/21 08:00 Pulse 92 06/18/21 08:00 Resp 19 06/18/21 08:00 BP 147/80 06/18/21 08:00 Pulse Ox 97 06/18/21 09:02 Intake & Output 06/17/21 06/18/21 06/18/21 18:59 06:59 18:59 Intake Total 1400 Output Total 530 320 Balance 870 -320 Intake: IV 1400 Output: Gastric Drainage 310 Urine 200 320 Uretheral ([place]) 120 Estimated Blood Loss 20 Other: Voiding Method Bedside Commode Indwelling Catheter # Voids 1 # Bowel Movements 0 - Exam GENERAL EXAM: Alert, pleasant 75-year-old female patient, on 3 L nasal cannula, fairly comfortable in no apparent distress. HEAD: Normocephalic. EYES: Normal reaction of pupils, equal size. NOSE: Nasogastric tube remains in place. Clear with pink turbinates. THROAT: No erythema or exudates. NECK: No masses, no JVD. CHEST: No chest wall deformity. LUNGS: Equal air entry with crackles in the right lung base. CVS: S1 and S2 normal with no audible murmur, regular rhythm. ABDOMEN: Abdominal dressing dry and intact. Hypoactive bowel sounds, no guarding or rigidity. SPINE: No scoliosis or deformity SKIN: No rashes CENTRAL NERVOUS SYSTEM: No focal deficits, tone is normal in all 4 extremities. EXTREMITIES: There is no peripheral edema. No clubbing, no cyanosis. Peripheral pulses are intact. - Labs CBC & Chem 7: 06/18/21 07:38 06/18/21 07:38 Labs: Abnormal Lab Results - Last 24 Hours (Table) 06/16/21 06/18/21 06/18/21 Range/Units 07:50 07:38 07:38 WBC 19.7 H (3.8-10.6) k/uL Neutrophils # 18.2 H (1.3-7.7) k/uL Lymphocytes # 0.6 L (1.0-4.8) k/uL Sodium 134 L (137-145) mmol/L Potassium 3.2 L (3.5-5.1) mmol/L Calcium 8.3 L (8.4-10.2) mg/dL AST 57 H (14-36) U/L Alkaline Phosphatase 33 L (38-126) U/L Total Protein 5.0 L (6.3-8.2) g/dL Albumin 2.4 L (3.5-5.0) g/dL CA 15-3 Antigen 1515.0 H (0.0-32.3) U/mL CA 125 Antigen 7667.0 H (0.0-30.1) U/mL Assessment and Plan Assessment: 1 Right hilar mass based on chest x-ray findings. Computed tomography scan of the chest confirmed a large right hilar mass with mediastinal invasion up to the level of the thoracic inlet consistent with primary lung neoplasm. She did undergo bronchoscopy with EBUS with transbronchial needle aspirates of station 4R and station 7 lymph nodes and endobronchial biopsies of the right upper lobe endobronchial tumor on 06/11/2021 revealed poorly differentiated non-small cell cancer with features of adenocarcinoma. Metastatic disease to the liver. 2 Metastatic liver lesions, consider underlying malignancy, consider underlying primary lung cancer 3 Partial small bowel obstruction. Please refer to the CAT scan of the abdomen. The patient had undergone exploratory laparotomy and found to have metastatic disease to the small bowel resulting in obstruction. She had a small bowel resection performed on 06/17/2021. 4 Abnormal troponin with mild elevation without any evidence of an acute ischemic event. Cardiology been in the case 5 COPD with emphysematous changes in the upper lobes bilaterally 6 Hyperlipidemia 7 Remote history of breast cancer on the left with a previous lumpectomy followed by radiation therapy followed by tamoxifen treatment for a total of 5 years. 8 History of smoking, more than [id number]. Currently on a nicotine patch. Plan: The patient was seen and evaluated She did undergo bowel resection for obstruction yesterday [place] to be metastatic as well, pathology pending Nasogastric tube remains in place Encouraged regarding the increased use of the incentive spirometer and cough and deep breathing exercises Titrate the FiO2 as tolerated, currently on 3 L and stable Family is at the bedside We will continue to follow and make further recommendations based on her clinical status I, the cosigning physician, performed a history & physical examination of the patient. Lungs sounds with crackles in the right lung base. Maintaining good O2 saturations in the 90s on 3 L/m per nasal cannula. I discussed the assessment and plan of care with my nurse practitioner, Merlene Warner. I attest to the above note as dictated by her.
[2021-06-18] MEDS ORDERED: Potassium Replacement Protocol 1 EACH MISC MISCELLANE PRN (12:06)
[2021-06-18] MEDS: LEVOFLOXACIN 500MG-D5W PMX 500 MG in DEXTROSE/WATER 1 100ML.BAG IVPB SCH (14:18)
--- NOTE | 2021-06-18 14:41 | P.PN ---
Subjective Progress Note Date: 06/18/21 This is a pleasant 75-year-old female, Covid vaccinated X 2, hard of hearing, left breast cancer with lumpectomy/radiation, arthritis with past medical history of nicotine dependence-has smoked since she was a teen and is currently at a half pack per day, hiatal hernia presented to the ER with mid epigastric abdominal pain, constipation, nausea, vomiting of dk. brown emesis. Patient reports on last Monday she had [address] Ramirez secondary to gingivitis. Postprocedure she found it very difficult to eat and drink. Sodium 128 to 1:30, BUN ranging from 11-7, creatinine 0.82. Reports she is not passing any flatus ,with no bowel movement since her teeth extraction. Tested negative for Coronavirus. Hypoxic, O2 sat 87% on room air currently high 90s to 100% on 2 L nasal cannula. Denies any chest pain, chest pressure, or shortness of breath. Troponin 0.097, 0.151. Evaluated by cardiology, echo pending. EKG reporting normal sinus rhythm. Chest x-ray pending. CT of abdomen and pelvis reporting new multiple hypodense liver lesions suggestive of metastatic disease measuring up to 4 cm, will require further monitoring/workup outpatient, dilated small bowel with fluid suggestive of new mechanical small bowel obstruction, transition point not identified. LFTs within normal limits with the exception of AST mildly elevated ,50. Lipase 311. Afebrile, normal WBC. UA Negative. H emoglobin 14.7, platelets 289, PT 9.8, INR 0.9. Received IV fluids, antiemetics, morphine and PPI, feeling better. 06/10/2021 no bowel movement, patient reports passing flatus .no further nausea or vomiting .reports abdominal pain improving . NG tube on hold at this time as per surgery .clear liquid diet initiated .maintained on nebulized bronchodilators, nicotine patch , maintaining O2 sats in the 90s on room air.Chest x-ray reporting possible right hilar mass, the patient with history of breast cancer. Evaluated by pulmonary, chest CT ordered. Telemetry sinus rhythm, denies chest pain, palpitations, heparin drip discontinued as per cardiology. 06/11/[address] reported confirmation of large right hilar mass with mediastinal and patient up to the level of the thoracic inlet consistent with primary lung neoplasm, consider small cell carcinoma, metastatic disease to the liver redemonstrated.NPO, scheduled for bronchoscopy with lung biopsy. Fluctuating confusion, easily forgets, difficulty at times recalling past events; couldn't remember what her daughter does for a living. Denies chest pain, palpitations or shortness of breath. Maintaining O2 sats in the 90s on room air. Denies further nausea or vomiting, positive bowel movement today, loose, passing flatus. 06/14/2021 minimal NG tube drainage overnight, passing flatus, no bowel movement. Denies nausea vomiting or abdominal pain. Status post bronchoscopy, pathology, cultures pending. Afebrile, WBC 11.8. Potassium 3.1, renal function stable.Computed tomography scan of brain reported no evidence of metastatic disease. 06/15/2021 chest x-ray from yesterday afternoon reporting right hilar prominence consistent with mass, superimposed interstitial asymmetric edema or pneumonitis. Maintaining O2 sats in the 90s on room air. Afebrile. Potassium 3.2. Bronchoscopy pathology/ cultures pending. Evaluated by oncology with recommendations noted and appreciated. PT evaluation pending. 06/16/2021 MRI of brain and neck/jaw pending. Maintained on full liquid diet, consuming 25% with "full" sensation.denies nausea or vomiting. Denies abdominal pain. Passing flatus. No bowel movement-patient reports chronic constipation. Denies chest pain, palpitations, reports shortness of breath. Maintaining O2 sats in the 90s on room air. Audible congestion. Lung pathology pending. 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 06/17/2021 during the night patient's abdomen became more distended, nausea and vomiting reoccurred, increased abdominal cramping, NG tube reinserted. NPO,scheduled for exploratory laparotomy today. Unable to auscultate bowel sounds today. Pain controlled with current IV pain return. Continues with audible congestion, maintaining O2 sats in the low 90s on room air.Right upper lobe transbronchial biopsy reporting positive for poorly differentiated non- small cell lung cancer/Cytology reporting positive for non-small cell CA with designated 4R adequacy pending cell block. Afebrile, WBC 10.9. Sodium 134, potassium 3.7,renal function stable. 06/18/2021 Yesterday patient underwent exploratory laparotomy for suspected small bowel obstruction reporting significant metastatic disease to the small bowel resulting in obstruction. Family requested surgeon proceed with resection of small bowel. Tolerated procedure well. Currently with NG, small amount of drainage. CA 153 1515 and CA-125 antigen 7667. Reports abdominal pain. Maintaining O2 sats in the 90s on 3 L nasal cannula. Continues on nebulized bronchodilators, IV steroids, Levaquin, nicotine patch. Afebrile, T-max 99.6. Objective - Vital Signs Vital signs: Vital Signs Temp 98.7 F 06/18/21 08:00 Pulse 86 06/18/21 12:30 Resp 19 06/18/21 08:00 BP 147/80 06/18/21 08:00 Pulse Ox 97 06/18/21 09:02 Intake & Output 06/17/21 06/18/21 06/18/21 18:59 06:59 18:59 Intake Total 1400 Output Total 530 320 Balance 870 -320 Weight 58.967 kg Intake: IV 1400 Output: Gastric Drainage 310 Urine 200 320 Uretheral (Whitley) 120 Estimated Blood Loss 20 Other: Voiding Method Bedside Commode Indwelling Catheter # Voids 1 1 # Bowel Movements 0 - Exam PHYSICAL EXAM: VITAL SIGNS: [As above] GENERAL: Alert and oriented 3,Sitting up in bed HEENT: Conjunctivae normal. eyes normal. 3 teeth recently extracted. NG tube present. NECK: No JVD. No thyroid enlargement. No LNs CARDIOVASCULAR: S1, S2 regular. Systolic murmur RESPIRATION: Breath sounds coarse bilateral rhonchi with right basilar crackles. ABDOMEN: Soft, status post surgery, abdominal dressing dry and intact.hypoactive Bowel sounds heard. LEGS: No edema. no swelling NERVOUS SYSTEM: Cranial N 2-12 grossly normal. No focal deficits. Strength and sensation grossly intact. Skin: Warm and dry, no rash - Labs CBC & Chem 7: 06/18/21 07:38 06/18/21 07:38 Labs: Abnormal Lab Results - Last 24 Hours (Table) 06/16/21 06/18/21 06/18/21 Range/Units 07:50 07:38 07:38 WBC 19.7 H (3.8-10.6) k/uL Neutrophils # 18.2 H (1.3-7.7) k/uL Lymphocytes # 0.6 L (1.0-4.8) k/uL Sodium 134 L (137-145) mmol/L Potassium 3.2 L (3.5-5.1) mmol/L Calcium 8.3 L (8.4-10.2) mg/dL AST 57 H (14-36) U/L Alkaline Phosphatase 33 L (38-126) U/L Total Protein 5.0 L (6.3-8.2) g/dL Albumin 2.4 L (3.5-5.0) g/dL CA 15-3 Antigen 1515.0 H (0.0-32.3) U/mL CA 125 Antigen 7667.0 H (0.0-30.1) U/mL Assessment and Plan Assessment: Mechanical ileus, possible small bowel obstruction in a patient with 3 teeth extracted 5 days ago, with Dr. Ramirez-oral surgeon; minimal oral intake post procedure, on antibiotics, NSAIDs and opioids, with nausea, dark brown emesis and mid epigastric pain. Reports no flatus, no bowel movement 4-[address] reports dilated small bowel with fluid suggestive of new mechanical small bowel obstruction, transition point not identified. Status post exploratory laparotomy with small bowel resection secondary to significant metastatic disease of the small bowel resulting in obstruction, pathology pending. 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 Mildly elevated lipase Right hilar mass confirmed per chest CT, status post bronchoscopy. Lung and mediastinal Pathology/cytology reporting positive for non-small cell lung CA with possible lymphovasc. invasion Atelectasis, possible pneumonitis Multiple hypodense liver lesions suggestive of metastatic disease To [address], in a patient with history of left breast CA with lumpectomy, radiation Hypovolemic hyponatremia secondary to #1 Hypokalemia, resolved Metabolic encephalopathy secondary to all the above, possible metastatic, brain CT did not report brain metastases, MRI pending Elevated troponins, without chest pain reported, no acute ischemic event as per Cardiology. EF greater than 55% Moderate mitral regurgitation mild pulmonary hypertension COPD with underlying emphysema Nicotine dependence, extensive, [id number] Occasional alcohol use Arthritis Plan: Continue on current medication regime ,monitoring and symptomatic treatment. Small bowel pathology. pending MRI pending.aggressive pulmonary toileting with nebulized bronchodilators, steroids with incentive spirometer reinforced .Patient currently a full CODE STATUS, CODE STATUS readdressed with family at bedside .at this time patient wishes to remain a full code.further discussion regarding hospice and palliative care pending.Prognosis guarded given multiple complex medical issues. The impression and plan of care has been dictated as directed. : I performed a history and examination of this patient, discussed the same with the dictator. I agree with the dictator's note ,documented as a scribe. Any additional findings or plans will be noted.
--- NOTE | 2021-06-18 14:46 | P.PN ---
Subjective Progress Note Date: 06/18/21 Patient seen and examined at bedside. Family is at bedside. Patient with nasogastric tube in place. No bowel function as of yet. Comfortable. Objective - Vital Signs Vital signs: Vital Signs Temp 98.7 F 06/18/21 08:00 Pulse 86 06/18/21 12:30 Resp 19 06/18/21 08:00 BP 147/80 06/18/21 08:00 Pulse Ox 97 06/18/21 09:02 Intake & Output 06/17/21 06/18/21 06/18/21 18:59 06:59 18:59 Intake Total 1400 Output Total 530 320 Balance 870 -320 Weight 58.967 kg Intake: IV 1400 Output: Gastric Drainage 310 Urine 200 320 Uretheral (Schwartz) 120 Estimated Blood Loss 20 Other: Voiding Method Bedside Commode Indwelling Catheter # Voids 1 1 # Bowel Movements 0 - Constitutional General appearance: Present: cooperative - Gastrointestinal Gastrointestinal Comment(s): Soft, appropriate tenderness, nondistended, no rebound, no guarding, midline incision with surgical dressing in place. - Labs CBC & Chem 7: 06/18/21 07:38 06/18/21 07:38 Labs: Abnormal Lab Results - Last 24 Hours (Table) 06/16/21 06/16/21 06/18/21 Range/Units 07:50 07:50 07:38 WBC 19.7 H (3.8-10.6) k/uL Neutrophils # 18.2 H (1.3-7.7) k/uL Lymphocytes # 0.6 L (1.0-4.8) k/uL Sodium (137-145) mmol/L Potassium (3.5-5.1) mmol/L Calcium (8.4-10.2) mg/dL AST (14-36) U/L Alkaline Phosphatase (38-126) U/L Total Protein (6.3-8.2) g/dL Albumin (3.5-5.0) g/dL CA 15-3 Antigen 1515.0 H (0.0-32.3) U/mL CA 27-29 3,920.7 H (<38.6) U/mL CA 125 Antigen 7667.0 H (0.0-30.1) U/mL 06/18/21 Range/Units 07:38 WBC (3.8-10.6) k/uL Neutrophils # (1.3-7.7) k/uL Lymphocytes # (1.0-4.8) k/uL Sodium 134 L (137-145) mmol/L Potassium 3.2 L (3.5-5.1) mmol/L Calcium 8.3 L (8.4-10.2) mg/dL AST 57 H (14-36) U/L Alkaline Phosphatase 33 L (38-126) U/L Total Protein 5.0 L (6.3-8.2) g/dL Albumin 2.4 L (3.5-5.0) g/dL CA 15-3 Antigen (0.0-32.3) U/mL CA 27-29 (<38.6) U/mL CA 125 Antigen (0.0-30.1) U/mL Assessment and Plan Plan: 75-year-old female with Metastatic adenocarcinoma, postoperative day #1 from exploratory laparotomy small bowel resection secondary to obstruction - Continue NG Tube until further bowel function, NPO with ice chipss - PICC line to be placed for TPN - DC schwartz catheter - Pain control - Oncology recommendations
[2021-06-18] MEDS: LACTATED RINGERS 1,000 ML IV SCH ×2 (15:58→20:47)
[2021-06-18] MEDS: PRAVASTATIN SODIUM 80 MG TAB PO SCH (18:11)
[2021-06-18] MEDS: METOPROLOL TARTRATE 25 MG TAB PO SCH ×2 (18:11→20:47)
[2021-06-18] MEDS: LORATADINE 10 MG TAB PO SCH (18:11)
[2021-06-18] MEDS: ASPIRIN 81 MG PO SCH (18:11)
--- NOTE | 2021-06-18 19:47 | P.PN ---
Subjective Progress Note Date: 06/18/21 Principal diagnosis: Metastatic Adenocarcinoma Status post OR with Dr. Bennett. Significant metastatic disease to liver and small bowel noted in OR note. Appears new widespread metastatic disease consistent with her known history of breast cancer, but unable to definitively say as lung primary also possible. We can further evaluate with Cancer ID as outpatient Will need breast ultrasound next week Objective - Vital Signs Vital signs: Vital Signs Temp 98.7 F 06/18/21 08:00 Pulse 86 06/18/21 12:30 Resp 19 06/18/21 08:00 BP 147/80 06/18/21 08:00 Pulse Ox 97 06/18/21 09:02 Intake & Output 06/17/21 06/18/21 06/18/21 18:59 06:59 18:59 Intake Total 1400 Output Total 530 320 Balance 870 -320 Weight 58.967 kg Intake: IV 1400 Output: Gastric Drainage 310 Urine 200 320 Uretheral (Whitley) 120 Estimated Blood Loss 20 Other: Voiding Method Bedside Commode Indwelling Catheter # Voids 1 # Bowel Movements 0 - Exam - Constitutional General appearance: Present: average body habitus, cooperative, no acute distress - EENT Eyes: Present: anicteric sclerae, EOMI ENT: Present: hearing grossly normal - Respiratory Respiratory: bilateral: CTA - Cardiovascular Rhythm: regular Heart sounds: normal: S1, S2 Abnormal Heart Sounds: Absent: systolic murmur, diastolic murmur, rub, S3 Gallop, S4 Gallop, click, other - Gastrointestinal General gastrointestinal: Present: absent bowel sounds, distended, soft - Neurologic Neurologic: Present: CNII-XII intact - Musculoskeletal Musculoskeletal: Present: generalized weakness - Psychiatric Psychiatric: Present: A&O x's 3, appropriate affect, intact judgment & insight - Labs CBC & Chem 7: 06/18/21 07:38 06/18/21 07:38 Labs: Abnormal Lab Results - Last 24 Hours (Table) 06/16/21 06/18/21 06/18/21 Range/Units 07:50 07:38 07:38 WBC 19.7 H (3.8-10.6) k/uL Neutrophils # 18.2 H (1.3-7.7) k/uL Lymphocytes # 0.6 L (1.0-4.8) k/uL Sodium 134 L (137-145) mmol/L Potassium 3.2 L (3.5-5.1) mmol/L Calcium 8.3 L (8.4-10.2) mg/dL AST 57 H (14-36) U/L Alkaline Phosphatase 33 L (38-126) U/L Total Protein 5.0 L (6.3-8.2) g/dL Albumin 2.4 L (3.5-5.0) g/dL CA 15-3 Antigen 1515.0 H (0.0-32.3) U/mL CA 125 Antigen 7667.0 H (0.0-30.1) U/mL Assessment and Plan Plan: Assessment and Plan (1) Liver lesion Current Visit: Yes Status: Acute Priority: High Code(s): K76.9 - LIVER DISEASE, UNSPECIFIED SNOMED Code(s): 028187102 (2) Neoplasm of hilus of right lung Current Visit: Yes Status: Acute Priority: High Code(s): D49.1 - NEOPLASM OF UNSPECIFIED BEHAVIOR OF RESPIRATORY SYSTEM SNOMED Code(s): 603559286 (3) Small bowel obstruction Narrative/Plan: NG back in, pt bowels have not moved. Plan for surgery. Unknown cause, pending surgical intervention and findings. Current Visit: Yes Status: Acute Priority: High Code(s): K56.609 - UNSP INTESTNL OBST, UNSP TO PARTIAL VERSUS COMPLETE OBST SNOMED Code(s): 186544026 (4) Breast cancer Narrative/Plan: Hx >10 years ago. Current Visit: No Status: Chronic Priority: Medium Code(s): C50.919 - MALIGNANT NEOPLASM OF UNSP SITE OF UNSPECIFIED FEMALE BREAST SNOMED Code(s): 788723758 Plan: Patient is status post bronchoscopy and biopsy with Dr. Reid 06/11. Pathology results positive for malignancy, poorly differentiated adenocarcinoma. Pathologist is sending for additional testing for clarification but appears conisstent with breast. We will request specimen for somatic NGS testing and PDL-1. MRI brain and neck pending. Can be done outpt if needed as pt will not be able to start any treatment for at least 3-4 weeks post op. Status post OR with Dr. Bennett. Significant metastatic disease to liver and small bowel noted in OR note. Appears new widespread metastatic disease consistent with her known history of breast cancer, but unable to definitively say as lung primary also possible. We can further evaluate with Cancer ID as outpatient Will need breast ultrasound next week Doctor attests: I performed a history and physical examination of this patient, developed impression and plan of care, discussed with dictator. I agree with dictators note, documented as a scribe.
[2021-06-18] MEDS: GABAPENTIN 400 MG CAP PO SCH (20:37)
[2021-06-19] MEDS: hydrALAZINE HCL 20 MG/ML 1 ML VIAL IVP SCH ×6 (03:36→23:55)
[2021-06-19] MEDS: LACTATED RINGERS 1,000 ML IV SCH ×2 (06:14→16:06)
[2021-06-19] MEDS: ENALAPRILAT 1.25 MG/ML 1 ML VIAL IVP SCH ×4 (06:14→23:54)
[2021-06-19] MEDS: BUDESONIDE 1 MG/2 ML NEBU INHALATION SCH ×2 (07:54→19:08)
[2021-06-19] MEDS: IPRATROPIUM-ALBUTEROL 3 ML NEB INHALATION SCH ×4 (07:54→19:08)
[2021-06-19] MEDS: FORMOTEROL FUMARATE 20 MCG/2 ML NEBU INHALATION SCH ×3 (07:54→19:08)
--- NOTE | 2021-06-19 10:00 | P.PN ---
Subjective This is a pleasant 75-year-old female, Covid vaccinated X 2, hard of hearing, left breast cancer with lumpectomy/radiation, arthritis with past medical history of nicotine dependence-has smoked since she was a teen and is currently at a half pack per day, hiatal hernia presented to the ER with mid epigastric abdominal pain, constipation, nausea, vomiting of dk. brown emesis. Patient reports on last Monday she had [address] Ramirez secondary to gingivitis. Postprocedure she found it very difficult to eat and drink. Sodium 128 to 1:30, BUN ranging from 11-7, creatinine 0.82. Reports she is not passing any flatus ,with no bowel movement since her teeth extraction. Tested negative for Coronavirus. Hypoxic, O2 sat 87% on room air currently high 90s to 100% on 2 L nasal cannula. Denies any chest pain, chest pressure, or shortness of breath. Troponin 0.097, 0.151. Evaluated by cardiology, echo pending. EKG reporting normal sinus rhythm. Chest x-ray pending. CT of abdomen and pelvis reporting new multiple hypodense liver lesions suggestive of metastatic disease measuring up to 4 cm, will require further monitoring/workup outpatient, dilated small bowel with fluid suggestive of new mechanical small bowel obstruction, transition point not identified. LFTs within normal limits with the exception of AST mildly elevated ,50. Lipase 311. Afebrile, normal WBC. UA Negative. Hemoglobin 14.7, platelets 289, PT 9.8, INR 0.9. Received IV fluids, antiemetics, morphine and PPI, feeling better. 06/10/2021 no bowel movement, patient reports passing flatus .no further nausea or vomiting .reports abdominal pain improving . NG tube on hold at this time as per surgery .clear liquid diet initiated .maintained on nebulized bronchodilators, nicotine patch , maintaining O2 sats in the 90s on room air.Chest x-ray reporting possible right hilar mass, the patient with history of breast cancer. Evaluated by pulmonary, chest CT ordered. Telemetry sinus rhythm, denies chest pain, palpitations, heparin drip discontinued as per cardiology. 06/11/[address] reported confirmation of large right hilar mass with mediastinal and patient up to the level of the thoracic inlet consistent with primary lung neoplasm, consider small cell carcinoma, metastatic disease to the liver redemonstrated.NPO, scheduled for bronchoscopy with lung biopsy. Fluctuating confusion, easily forgets, difficulty at times recalling past even ts; couldn't remember what her daughter does for a living. Denies chest pain, palpitations or shortness of breath. Maintaining O2 sats in the 90s on room air. Denies further nausea or vomiting, positive bowel movement today, loose, passing flatus. 06/14/2021 minimal NG tube drainage overnight, passing flatus, no bowel movement. Denies nausea vomiting or abdominal pain. Status post bronchoscopy, pathology, cultures pending. Afebrile, WBC 11.8. Potassium 3.1, renal function stable.Computed tomography scan of brain reported no evidence of metastatic disease. 06/15/2021 chest x-ray from yesterday afternoon reporting right hilar prominence consistent with mass, superimposed interstitial asymmetric edema or pneumonitis. Maintaining O2 sats in the 90s on room air. Afebrile. Potassium 3.2. Bronchoscopy pathology/ cultures pending. Evaluated by oncology with recommendations noted and appreciated. PT evaluation pending. 06/16/2021 MRI of brain and neck/jaw pending. Maintained on full liquid diet, consuming 25% with "full" sensation.denies nausea or vomiting. Denies abdominal pain. Passing flatus. No bowel movement-patient reports chronic constipation. Denies chest pain, palpitations, reports shortness of breath. Maintaining O2 sats in the 90s on room air. Audible congestion. Lung pathology pending. 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 06/17/2021 during the night patient's abdomen became more distended, nausea and vomiting reoccurred, increased abdominal cramping, NG tube reinserted. NPO,scheduled for exploratory laparotomy today. Unable to auscultate bowel sounds today. Pain controlled with current IV pain return. Continues with susana ble congestion, maintaining O2 sats in the low 90s on room air.Right upper lobe transbronchial biopsy reporting positive for poorly differentiated non-small cell lung cancer/Cytology reporting positive for non-small cell CA with designated 4R adequacy pending cell block. Afebrile, WBC 10.9. Sodium 134, potassium 3.7,renal function stable. 06/18/2021 Yesterday patient underwent exploratory laparotomy for suspected small bowel obstruction reporting significant metastatic disease to the small bowel resulting in obstruction. Family requested surgeon proceed with resection of small bowel. Tolerated procedure well. Currently with NG, small amount of drainage. CA 153 1515 and CA-125 antigen 7667. Reports abdominal pain. Maintaining O2 sats in the 90s on 3 L nasal cannula. Continues on nebulized bronchodilators, IV steroids, Levaquin, nicotine patch. Afebrile, T-max 99.6. 06/19/2021: Patient is postop day 2 for expiratory laparotomy for small bowel obstruction from significant metastatic disease in the small bowel. She has an NG tube in place. Vital signs are stable. She is afebrile. Blood pressure has remained elevated during this hospital stay. Hydralazine IV was ordered last night and she remains on Vasotec. Eyes and nose show 380 mL output most recent shift. A PICC line and TPN her plan for her. Labs are pending for this morning general surgery, pulmonology, and oncology notes reviewed from yesterday. She remains on budesonide inhalers, Vasotec and hydralazine IV push for hypertension, Levaquin for antibiotic coverage, lactated Ringer's for IV fluid hydration, methylprednisolone for COPD, pantoprazole for GI prophylaxis, her by mouth medications and believe are currently on hold Objective - Vital Signs Vital signs: Vital Signs Temp 98.3 F 06/19/21 04:42 Pulse 97 06/19/21 08:07 Resp 16 06/19/21 04:42 BP 186/86 06/19/21 06:13 Pulse Ox 98 06/19/21 07:54 Intake & Output 06/18/21 06/19/21 06/19/21 18:59 06:59 18:59 Output Total 100 680 Balance -100 -680 Weight 58.967 kg Output: Gastric Drainage 100 Urine 680 Uretheral (Whitley) 580 Other: Voiding Method Indwelling Catheter Indwelling Catheter # Voids 1 # Bowel Movements 0 - Exam GENERAL: Alert and oriented 3,Sitting up in bed HEENT: Conjunctivae normal. eyes normal. 3 teeth recently extracted. NG tube present. NECK: No JVD. No thyroid enlargement. No LNs CARDIOVASCULAR: S1, S2 regular. Systolic murmur RESPIRATION: Breath sounds coarse bilateral rhonchi with bilateral rhonchi, intermittently ABDOMEN: Soft, status post surgery, abdominal dressing dry and intact.hypoactive Bowel sounds heard. LEGS: No edema. no swelling NERVOUS SYSTEM: Cranial N 2-12 grossly normal. No focal deficits. Strength and sensation grossly intact. Skin: Warm and dry, no rash - Labs CBC & Chem 7: 06/18/21 07:38 06/18/21 07:38 Labs: Abnormal Lab Results - Last 24 Hours (Table) 06/16/21 Range/Units 07:50 CA 27-29 3,920.7 H (<38.6) U/mL Assessment and Plan Plan: Mechanical ileus, possible small bowel obstruction in a patient with 3 teeth extracted 5 days ago, with Dr. Ramirez-oral surgeon; minimal oral intake post procedure, on antibiotics, NSAIDs and opioids, with nausea, dark brown emesis and mid epigastric pain. Reports no flatus, no bowel movement 4-[address] reports dilated small bowel with fluid suggestive of new mechanical small bowel obstruction, transition point not identified. Status post exploratory laparotomy with small bowel resection secondary to significant metastatic disease of the small bowel resulting in obstruction, pathology pending. 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 Mildly elevated lipase Right hilar mass confirmed per chest CT, status post bronchoscopy. Lung and mediastinal Pathology/cytology reporting positive for non-small cell lung CA with possible lymphovasc. invasion Atelectasis, possible pneumonitis Multiple hypodense liver lesions suggestive of metastatic disease To [address], in a patient with history of left breast CA with lumpectomy, radiation Hypovolemic hyponatremia secondary to #1 Hypokalemia, resolved Metabolic encephalopathy secondary to all the above, possible metastatic, brain CT did not report brain metastases, MRI pending Elevated troponins, without chest pain reported, no acute ischemic event as per Cardiology. EF greater than 55% Moderate mitral regurgitation mild pulmonary hypertension COPD with underlying emphysema Nicotine dependence, extensive, [id number] Occasional alcohol use Arthritis Plan: Continue her current medication regimen. We done a PICC line and TPN per General surgery, without further recommendations from oncology and possible MRI of the brain, head and neck, continue to monitor her blood pressure that's been elevated during her stay. And be reevaluated in the next 24 hours. Repeat labs next 24 hours
[2021-06-19] MEDS: ASPIRIN 81 MG PO SCH (10:04)
[2021-06-19] MEDS: LORATADINE 10 MG TAB PO SCH (10:04)
[2021-06-19] MEDS: METOPROLOL TARTRATE 25 MG TAB PO SCH ×2 (10:04→21:31)
[2021-06-19] MEDS: methylPREDNISolone SOD SUCCI 40 MG/ML 1 ML VIAL IV SCH ×3 (10:04→23:54)
[2021-06-19] MEDS: PANTOPRAZOLE 40 MG/10 ML VIAL IV SCH (10:04)
[2021-06-19] MEDS: NICOTINE 14MG/24HR PATCH TRANSDERM SCH (10:05)
[2021-06-19] MEDS: PRAVASTATIN SODIUM 80 MG TAB PO SCH (10:05)
[2021-06-19] MEDS: MORPHINE SULFATE 4 MG/ML SYRINGE IV PRN ×4 (10:05→21:41)
[2021-06-19] MEDS: LEVOFLOXACIN 500MG-D5W PMX 500 MG in DEXTROSE/WATER 1 100ML.BAG IVPB SCH (12:47)
--- NOTE | 2021-06-19 14:43 | PN ---
PROGRESS NOTE DATE OF SERVICE: 06/19/2021 CHIEF COMPLAINT: Weak. Olga is seen today in followup. She feels weak and tired. She still has NG tube in. CURRENT MEDICATION: Reviewed in the electronic medical record. PHYSICAL EXAMINATION: She is alert, oriented x3. NECK: Supple. CHEST: Equal expansion bilaterally. Lungs are clear. Heart is regular. ABDOMEN: Distended. Hypoactive bowel sounds. Extremities reveal no edema. Bilateral breast exam performed at bedside with the presence of her daughter. The left breast exam revealed evidence of lumpectomy but no suspicious finding in either breast. LABORATORY DATA: WBC of 19.7, hemoglobin 13.2, hematocrit is 40.4, platelets are 330. Sodium 134, potassium 3.2, chloride 99. CO2 25. BUN 17, creatinine 0.73. IMPRESSION: Metastatic adenocarcinoma, presenting initially with a large right hilar mass and mediastinal invasion and evidence of metastatic disease to the liver. Also she has abdominal metastases, bowel obstruction which led to palliative surgery. Certainly the differential diagnosis of her metastatic carcinoma remains very likely a lung primary, given the presentation of a large hilar mass on recent CT scan. Late recurrence of her previous history of breast carcinoma cannot be excluded but is felt to be less likely. On the current biopsy the estrogen and progesterone receptors were negative and HER- 2/jules receptors were negative as well. Her previous breast cancer was over 10 years ago, and according to the patient it was an early stage. It was treated with lumpectomy, adjuvant radiation therapy, and she took tamoxifen for 5 years. Record of this treatment is not available at this point in time. RECOMMENDATIONS: 1. Continue postoperative care. 2. Awaiting further additional immunohistochemical stains. 3. Also PDL1 and NexGen sequencing should be obtained. 4. Will try to retrieve her old records from her remote history of breast cancer. Apparently she was treated by Dr. Lyles at that time. Once her overall condition improves, and based on additional biomarker results, then further decision will be made in regard to systemic treatment. The above was discussed with the patient and her daughter at bedside. MMODL / SRIRAMN: [id number] /
--- NOTE | 2021-06-19 16:58 | P.PN ---
Subjective Progress Note Date: 06/19/21 No complaints today, no BM no Flatus, NGT in place. Objective - Vital Signs Vital signs: Vital Signs Temp 98.0 F 06/19/21 12:00 Pulse 90 06/19/21 15:43 Resp 18 06/19/21 14:00 BP 181/92 06/19/21 12:00 Pulse Ox 96 06/19/21 12:00 Intake & Output 06/18/21 06/19/21 06/19/21 18:59 06:59 18:59 Output Total 100 680 Balance -100 -680 Weight 58.967 kg Output: Gastric Drainage 100 Urine 680 Uretheral (Whitley) 580 Other: Voiding Method Indwelling Catheter Indwelling Catheter Indwelling Catheter # Voids 1 0 # Bowel Movements 0 0 - Constitutional General appearance: Present: cooperative - Cardiovascular Rhythm: regular - Gastrointestinal Gastrointestinal Comment(s): S/NT/ND - Labs CBC & Chem 7: 06/18/21 07:38 06/18/21 07:38 Assessment and Plan Assessment: S/P exlap SBR Plan: Cont NGT. Awaiting Picc so we can start TPN. Patient was encouraged to use IS and to get out of bed and into chair. PT/OT eval and treatment
[2021-06-19] MEDS: GABAPENTIN 400 MG CAP PO SCH (21:31)
[2021-06-20] MEDS: MORPHINE SULFATE 4 MG/ML SYRINGE IV PRN ×6 (00:30→20:32)
[2021-06-20] MEDS: LACTATED RINGERS 1,000 ML IV SCH ×4 (02:33→20:33)
[2021-06-20] MEDS: hydrALAZINE HCL 20 MG/ML 1 ML VIAL IVP SCH ×6 (03:36→23:47)
[2021-06-20] MEDS: ENALAPRILAT 1.25 MG/ML 1 ML VIAL IVP SCH ×4 (05:59→23:46)
[2021-06-20] MEDS: IPRATROPIUM-ALBUTEROL 3 ML NEB INHALATION SCH ×4 (07:19→20:07)
[2021-06-20] MEDS: BUDESONIDE 1 MG/2 ML NEBU INHALATION SCH ×2 (07:20→20:07)
[2021-06-20] MEDS: FORMOTEROL FUMARATE 20 MCG/2 ML NEBU INHALATION SCH ×2 (07:20→20:07)
[2021-06-20 07:46] LABS: ALT 35 U/L (4-34); AST 62 U/L (14-36); African American GFR (CKD) >90 (>60 ml/min/1.73 sqM); Albumin 2.7 g/dL (3.5-5.0); Alkaline Phosphatase 38 U/L (38-126); Anion Gap 9 mmol/L; Blood Urea Nitrogen 28 mg/dL (7-17); Calcium 8.9 mg/dL (8.4-10.2); Carbon Dioxide 28 mmol/L (22-30); Chloride 100 mmol/L (98-107); Glucose 111 mg/dL (74-99); Magnesium 2.2 mg/dL (1.6-2.3); Non-African American GFR(CKD) 87 (>60 ml/min/1.73 sqM); Potassium 3.4 mmol/L (3.5-5.1); Sodium 137 mmol/L (137-145); Total Bilirubin 0.7 mg/dL (0.2-1.3); Total Protein 5.6 g/dL (6.3-8.2)
[2021-06-20 08:09] LABS: Basophils % (A) 0 %; Eosinophils % (A) 0 %; HCT 43.7 % (34.0-46.0); HGB 14.4 gm/dL (11.4-16.0); Lymphocytes # (A) 0.5 k/uL (1.0-4.8); Lymphocytes % (A) 3 %; MCH 32.3 pg (25.0-35.0); MCV 97.9 fL (80.0-100.0); Mean Platelet Volume 7.2; Monocytes # (A) 0.7 k/uL (0-1.0); Monocytes % (A) 3 %; Neutrophils # (A) 18.2 k/uL (1.3-7.7); Neutrophils % (A) 94 %; Platelet Count 411 k/uL (150-450); RBC 4.46 m/uL (3.80-5.40); RDW 13.9 % (11.5-15.5); WBC 19.4 k/uL (3.8-10.6)
[2021-06-20] MEDS: methylPREDNISolone SOD SUCCI 40 MG/ML 1 ML VIAL IV SCH ×3 (08:24→23:46)
[2021-06-20] MEDS: NICOTINE 14MG/24HR PATCH TRANSDERM SCH (08:24)
[2021-06-20] MEDS: PANTOPRAZOLE 40 MG/10 ML VIAL IV SCH (08:24)
[2021-06-20] MEDS: PRAVASTATIN SODIUM 80 MG TAB PO SCH (11:24)
[2021-06-20] MEDS: LORATADINE 10 MG TAB PO SCH (11:24)
[2021-06-20] MEDS: METOPROLOL TARTRATE 25 MG TAB PO SCH ×2 (11:24→20:31)
[2021-06-20] MEDS: ASPIRIN 81 MG PO SCH (11:24)
--- NOTE | 2021-06-20 11:49 | P.PN ---
Subjective This is a pleasant 75-year-old female, Covid vaccinated X 2, hard of hearing, left breast cancer with lumpectomy/radiation, arthritis with past medical history of nicotine dependence-has smoked since she was a teen and is currently at a half pack per day, hiatal hernia presented to the ER with mid epigastric abdominal pain, constipation, nausea, vomiting of dk. brown emesis. Patient reports on last Monday she had [address] Ramirez secondary to gingivitis. Postprocedure she found it very difficult to eat and drink. Sodium 128 to 1:30, BUN ranging from 11-7, creatinine 0.82. Reports she is not passing any flatus ,with no bowel movement since her teeth extraction. Tested negative for Coronavirus. Hypoxic, O2 sat 87% on room air currently high 90s to 100% on 2 L nasal cannula. Denies any chest pain, chest pressure, or shortness of breath. Troponin 0.097, 0.151. Evaluated by cardiology, echo pending. EKG reporting normal sinus rhythm. Chest x-ray pending. CT of abdomen and pelvis reporting new multiple hypodense liver lesions suggestive of metastatic disease measuring up to 4 cm, will require further monitoring/workup outpatient, dilated small bowel with fluid suggestive of new mechanical small bowel obstruction, transition point not identified. LFTs within normal limits with the exception of AST mildly elevated ,50. Lipase 311. Afebrile, normal WBC. UA Negative. Hemoglobin 14.7, platelets 289, PT 9.8, INR 0.9. Received IV fluids, antiemetics, morphine and PPI, feeling better. 06/10/2021 no bowel movement, patient reports passing flatus .no further nausea or vomiting .reports abdominal pain improving . NG tube on hold at this time as per surgery .clear liquid diet initiated .maintained on nebulized bronchodilators, nicotine patch , maintaining O2 sats in the 90s on room air.Chest x-ray reporting possible right hilar mass, the patient with history of breast cancer. Evaluated by pulmonary, chest CT ordered. Telemetry sinus rhythm, denies chest pain, palpitations, heparin drip discontinued as per cardiology. 06/11/[address] reported confirmation of large right hilar mass with mediastinal and patient up to the level of the thoracic inlet consistent with primary lung neoplasm, consider small cell carcinoma, metastatic disease to the liver redemonstrated.NPO, scheduled for bronchoscopy with lung biopsy. Fluctuating confusion, easily forgets, difficulty at times recalling past even ts; couldn't remember what her daughter does for a living. Denies chest pain, palpitations or shortness of breath. Maintaining O2 sats in the 90s on room air. Denies further nausea or vomiting, positive bowel movement today, loose, passing flatus. 06/14/2021 minimal NG tube drainage overnight, passing flatus, no bowel movement. Denies nausea vomiting or abdominal pain. Status post bronchoscopy, pathology, cultures pending. Afebrile, WBC 11.8. Potassium 3.1, renal function stable.Computed tomography scan of brain reported no evidence of metastatic disease. 06/15/2021 chest x-ray from yesterday afternoon reporting right hilar prominence consistent with mass, superimposed interstitial asymmetric edema or pneumonitis. Maintaining O2 sats in the 90s on room air. Afebrile. Potassium 3.2. Bronchoscopy pathology/ cultures pending. Evaluated by oncology with recommendations noted and appreciated. PT evaluation pending. 06/16/2021 MRI of brain and neck/jaw pending. Maintained on full liquid diet, consuming 25% with "full" sensation.denies nausea or vomiting. Denies abdominal pain. Passing flatus. No bowel movement-patient reports chronic constipation. Denies chest pain, palpitations, reports shortness of breath. Maintaining O2 sats in the 90s on room air. Audible congestion. Lung pathology pending. 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 06/17/2021 during the night patient's abdomen became more distended, nausea and vomiting reoccurred, increased abdominal cramping, NG tube reinserted. NPO,scheduled for exploratory laparotomy today. Unable to auscultate bowel sounds today. Pain controlled with current IV pain return. Continues with susana ble congestion, maintaining O2 sats in the low 90s on room air.Right upper lobe transbronchial biopsy reporting positive for poorly differentiated non-small cell lung cancer/Cytology reporting positive for non-small cell CA with designated 4R adequacy pending cell block. Afebrile, WBC 10.9. Sodium 134, potassium 3.7,renal function stable. 06/18/2021 Yesterday patient underwent exploratory laparotomy for suspected small bowel obstruction reporting significant metastatic disease to the small bowel resulting in obstruction. Family requested surgeon proceed with resection of small bowel. Tolerated procedure well. Currently with NG, small amount of drainage. CA 153 1515 and CA-125 antigen 7667. Reports abdominal pain. Maintaining O2 sats in the 90s on 3 L nasal cannula. Continues on nebulized bronchodilators, IV steroids, Levaquin, nicotine patch. Afebrile, T-max 99.6. 06/19/2021: Patient is postop day 2 for expiratory laparotomy for small bowel obstruction from significant metastatic disease in the small bowel. She has an NG tube in place. Vital signs are stable. She is afebrile. Blood pressure has remained elevated during this hospital stay. Hydralazine IV was ordered last night and she remains on Vasotec. Eyes and nose show 380 mL output most recent shift. A PICC line and TPN her plan for her. Labs are pending for this morning general surgery, pulmonology, and oncology notes reviewed from yesterday. She remains on budesonide inhalers, Vasotec and hydralazine IV push for hypertension, Levaquin for antibiotic coverage, lactated Ringer's for IV fluid hydration, methylprednisolone for COPD, pantoprazole for GI prophylaxis, her by mouth medications and believe are currently on hold 06/20/2021: Patient is postop day #3 of exploratory laparotomy for small bowel obstruction and lysis of adhesions due to metastatic carcinoma suspected lung cancer. She is an NG tube in place currently clamped. She indicates she is hungry heart rate is stable with dietary stable, temperature is afebrile. Blood pressure improved. She remains on IV fluids normal saline with 20 mL an hour. The PICC line could not be placed on the weekend. She had no significant intake than output of 300 mL. She is voiding urine normally. Labs today showed obese, 18.4 hemoglobin 14 4. Left shift shows neutrophils of 18.2. Chemistries show slightly hypokalemia 3.4. BUN is 28 creatinine is 0.65 today. GFR remains greater than 90. AST ALT are slightly abnormal. As previously stated cancer markers CA 153, CA 2729, and CA-125 were all abnormal. I'll defer interpretation these oncology. Staff reports that she is having a little complaint swelling to the NG tube. She was unable take her aspirin and metoprolol. She remains on Pulmicort inhaler. Vasotec and hydralazine IV push her hypertension. Levaquin IV antibiotics 500 daily. Methylprednisolone 40 mg IV push every 8 hours. She has morphine ordered for pain by surgery. Nicotine patches in place. Notes from oncology and general surgery from yesterday reviewed. The patient herself this morning he denies any chest pains or pressures. No shortness of breath at rest. Her NG tube is in place. She has some abdominal tenderness due to recent surgery. She was able to transfer from the bed to the chair with minimal assistance today. Objective - Vital Signs Vital signs: Vital Signs Temp 98.3 F 06/20/21 08:00 Pulse 90 06/20/21 11:40 Resp 18 06/20/21 11:40 BP 117/74 06/20/21 08:00 Pulse Ox 98 06/20/21 08:00 Intake & Output 06/19/21 06/20/21 06/20/21 18:59 06:59 18:59 Output Total 300 Balance -300 Output: Urine 300 Uretheral (Whitley) 300 Other: Voiding Method Indwelling Catheter Bedside Commode Bedside Commode # Voids 0 1 1 # Bowel Movements 0 - Exam GENERAL: Alert and oriented 3,Sitting up in bed, transfer to the chair with minimal assistance HEENT: Conjunctivae normal. eyes normal. 3 teeth recently extracted. NG tube present, but now clamped. NECK: No JVD. No thyroid enlargement. No LNs CARDIOVASCULAR: S1, S2 regular. Systolic murmur RESPIRATION: Breath sounds coarse bilateral rhonchi with bilateral rhonchi, intermittently ABDOMEN: Soft, status post surgery, abdominal dressing dry and intact.hypoacti ve Bowel sounds heard. LEGS: No edema. no swelling NERVOUS SYSTEM: Cranial N 2-12 grossly normal. No focal deficits. Strength and sensation grossly intact. Skin: Warm and dry, no rash - Labs CBC & Chem 7: 06/20/21 06:37 06/20/21 06:37 Labs: Abnormal Lab Results - Last 24 Hours (Table) 06/20/21 06/20/21 Range/Units 06:37 06:37 WBC 19.4 H (3.8-10.6) k/uL Neutrophils # 18.2 H (1.3-7.7) k/uL Lymphocytes # 0.5 L (1.0-4.8) k/uL Potassium 3.4 L (3.5-5.1) mmol/L BUN 28 H (7-17) mg/dL Glucose 111 H (74-99) mg/dL AST 62 H (14-36) U/L ALT 35 H (4-34) U/L Total Protein 5.6 L (6.3-8.2) g/dL Albumin 2.7 L (3.5-5.0) g/dL Assessment and Plan Plan: Mechanical ileus, possible small bowel obstruction in a patient with 3 teeth extracted 5 days ago, with Dr. Ramirez-oral surgeon; minimal oral intake post procedure, on antibiotics, NSAIDs and opioids, with nausea, dark brown emesis and mid epigastric pain. Reports no flatus, no bowel movement 4-[address] reports dilated small bowel with fluid suggestive of new mechanical small bowel obstruction, transition point not identified. Status post exploratory laparotomy with small bowel resection secondary to significant metastatic disease of the small bowel resulting in obstruction, pathology pending. 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 Mildly elevated lipase Right hilar mass confirmed per chest CT, status post bronchoscopy. Lung and mediastinal Pathology/cytology reporting positive for non-small cell lung CA with possible lymphovasc. invasion Atelectasis, possible pneumonitis Multiple hypodense liver lesions suggestive of metastatic disease To [address], in a patient with history of left breast CA with lumpectomy, radiation Hypovolemic hyponatremia secondary to #1 Hypokalemia, resolved Metabolic encephalopathy secondary to all the above, possible metastatic, brain CT did not report brain metastases, MRI pending Elevated troponins, without chest pain reported, no acute ischemic event as per Cardiology. EF greater than 55% Moderate mitral regurgitation mild pulmonary hypertension COPD with underlying emphysema Nicotine dependence, extensive, [id number] Occasional alcohol use Arthritis Plan: Continue her current medication regimen. Waiting on PICC line, ilda asked the nurse to recheck out to oncology if she may need a MediPort. The Mediport could be placed tomorrow and she can receive TPN through this versus her starting a clear liquid diet tomorrow. PICC line may not be necessary.. She will be reevaluated in the next 24 hours. Repeat labs next 24 hours
[2021-06-20] MEDS: LEVOFLOXACIN 500MG-D5W PMX 500 MG in DEXTROSE/WATER 1 100ML.BAG IVPB SCH (13:31)
--- NOTE | 2021-06-20 15:46 | PN ---
PROGRESS NOTE DATE OF SERVICE: June 20, 2021. CHIEF COMPLAINT: Tired. Olga is seen today in followup. She feels tired, but overall she feels better. She still has NG tube in. No fever or chills. CURRENT MEDICATION: Reviewed in her electronic medical record. PHYSICAL EXAMINATION: She is alert, oriented x3. No distress. Her vital signs are temperature 98.1, afebrile. Pulse is 96, regular, respiration 18, blood pressure 140/77. HEENT: Normocephalic, atraumatic. Neck: Supple. Chest: Lungs are clear to auscultation. Heart is regular rate and rhythm. Abdomen is slightly distended. Hypoactive bowel sounds. Extremities reveal no edema. Skin no significant bruises or petechiae. Lymphatics: No peripherally enlarged cervical or supraclavicular nodes. Musculoskeletal: Moving all extremities appropriately. LABORATORY DATA: From today WBC of 19.4, hemoglobin 14.8, hematocrit 43.7, and platelets are 411. Sodium 137, potassium 3.4, chloride is 100, CO2 28, BUN is 9, creatinine is 0.6. AST is 62, ALT is 35. IMPRESSION: Metastatic adenocarcinoma initially presenting with large right hilar mass and mediastinal invasion with evidence of metastatic disease to the liver. She also has abdominal metastases caused bowel obstruction which required palliative surgery. She has a remote history of breast carcinoma. However, her old record revealed that she had DCIS i.e. stage 0 left breast carcinoma several years ago. She underwent a lumpectomy and radiation therapy and also she had 5 years of tamoxifen at that time and it is very unlikely that this is a recurrence from her malignancy back then. The clinical picture is more so consistent with non-small cell lung carcinoma despite the immunohistochemical stains are not consistent with that. They ELLA 3 stain was positive on recent lung biopsy. However, they are rare cases of lung carcinoma, which could be positive for GATA3 as well. Again, this is unlikely to represent a breast primary. Also on recent lung biopsy. The estrogen, progesterone and HER-2/jules marker receptors were negative. RECOMMENDATION: 1. Continue current postoperative care. 2. The plan to have a PICC line for parenteral nutrition at this time. 3. PDL1 and sequencing will be requested. 4. Based on biomarker results and her improvement from recent surgery, further therapeutic decision will be made. The above was discussed with the patient and her daughter at bedside and I answered all their questions. ANDREA / SRIRAMN: [id number] /
[2021-06-20] MEDS: GABAPENTIN 400 MG CAP PO SCH (20:32)
[2021-06-21] MEDS: MORPHINE SULFATE 4 MG/ML SYRINGE IV PRN ×6 (04:19→20:52)
[2021-06-21] MEDS: hydrALAZINE HCL 20 MG/ML 1 ML VIAL IVP SCH ×6 (04:19→23:35)
[2021-06-21] MEDS: LACTATED RINGERS 1,000 ML IV SCH ×3 (04:20→23:35)
[2021-06-21] MEDS: ENALAPRILAT 1.25 MG/ML 1 ML VIAL IVP SCH ×4 (05:59→23:27)
[2021-06-21] MEDS: BUDESONIDE 1 MG/2 ML NEBU INHALATION SCH ×2 (07:35→19:02)
[2021-06-21] MEDS: FORMOTEROL FUMARATE 20 MCG/2 ML NEBU INHALATION SCH ×2 (07:35→19:02)
[2021-06-21] MEDS: IPRATROPIUM-ALBUTEROL 3 ML NEB INHALATION SCH ×4 (07:35→23:01)
[2021-06-21] MEDS: methylPREDNISolone SOD SUCCI 40 MG/ML 1 ML VIAL IV SCH ×3 (08:02→23:26)
[2021-06-21] MEDS: NICOTINE 14MG/24HR PATCH TRANSDERM SCH (08:02)
[2021-06-21] MEDS: METOPROLOL TARTRATE 25 MG TAB PO SCH ×2 (08:03→20:51)
[2021-06-21] MEDS: LORATADINE 10 MG TAB PO SCH (08:03)
[2021-06-21] MEDS: ASPIRIN 81 MG PO SCH (08:03)
[2021-06-21] MEDS: PANTOPRAZOLE 40 MG/10 ML VIAL IV SCH (08:03)
[2021-06-21 08:35] LABS: ALT 36 U/L (4-34); AST 64 U/L (14-36); African American GFR (CKD) >90 (>60 ml/min/1.73 sqM); Albumin 2.6 g/dL (3.5-5.0); Alkaline Phosphatase 37 U/L (38-126); Anion Gap 8 mmol/L; Blood Urea Nitrogen 29 mg/dL (7-17); Carbon Dioxide 27 mmol/L (22-30); Chloride 103 mmol/L (98-107); Glucose 108 mg/dL (74-99); Magnesium 2.3 mg/dL (1.6-2.3); Non-African American GFR(CKD) 89 (>60 ml/min/1.73 sqM); Potassium 3.5 mmol/L (3.5-5.1); Sodium 138 mmol/L (137-145); Total Bilirubin 0.7 mg/dL (0.2-1.3); Total Protein 5.3 g/dL (6.3-8.2)
[2021-06-21] MEDS ORDERED: LIDOCAINE 1% INJ 10MG/ML (20 ML MDV) ONE (12:05)
[2021-06-21 12:52] LABS: Phosphorus 3.9 mg/dL (2.5-4.5)
[2021-06-21] MEDS: PRAVASTATIN SODIUM 80 MG TAB PO SCH (13:09)
--- NOTE | 2021-06-21 14:58 | P.PN ---
Subjective Progress Note Date: 06/21/21 Principal diagnosis: Lung mass, path positive for malignancy In f/u today pt has NG back in place, s/p diverting ostomy. She is passing gas, abd distension is much better, she has an appetite and if looking forward to eating. No fevers, vomiting or bleeding to report. Objective - Vital Signs Vital signs: Vital Signs Temp 98.0 F 06/21/21 12:00 Pulse 85 06/21/21 08:00 Resp 18 06/21/21 12:00 BP 180/73 06/21/21 12:00 Pulse Ox 96 06/21/21 12:00 Intake & Output 06/20/21 06/21/21 06/21/21 18:59 06:59 18:59 Weight 58.967 kg Other: Voiding Method Bedside Commode Bedside Commode Bedside Commode # Voids 1 1 - Constitutional General appearance: Present: average body habitus, cooperative, no acute distress - EENT Eyes: Present: anicteric sclerae, EOMI ENT: Present: hearing grossly normal - Respiratory Respiratory: bilateral: CTA, diminished - Cardiovascular Rhythm: regular Heart sounds: normal: S1, S2 - Peripheral edema leg Peripheral Edema: bilateral: None - Gastrointestinal General gastrointestinal: Present: normal bowel sounds, soft - Neurologic Neurologic: Present: CNII-XII intact - Musculoskeletal Musculoskeletal: Present: generalized weakness, strength equal bilaterally - Psychiatric Psychiatric Comment(s): depressed mood, "overwhelmed" Psychiatric: Present: A&O x's 3, intact judgment & insight - Labs CBC & Chem 7: 06/20/21 06:37 06/21/21 07:58 Labs: Abnormal Lab Results - Last 24 Hours (Table) 06/21/21 Range/Units 07:58 BUN 29 H (7-17) mg/dL Glucose 108 H (74-99) mg/dL AST 64 H (14-36) U/L ALT 36 H (4-34) U/L Alkaline Phosphatase 37 L (38-126) U/L Total Protein 5.3 L (6.3-8.2) g/dL Albumin 2.6 L (3.5-5.0) g/dL Assessment and Plan (1) Liver lesion Current Visit: Yes Status: Acute Priority: High Code(s): K76.9 - LIVER DISEASE, UNSPECIFIED SNOMED Code(s): 919042035 (2) Neoplasm of hilus of right lung Current Visit: Yes Status: Acute Priority: High Code(s): D49.1 - NEOPLASM OF UNSPECIFIED BEHAVIOR OF RESPIRATORY SYSTEM SNOMED Code(s): 243892653 (3) Small bowel obstruction Narrative/Plan: S/P diverting ostomy. Case was discussed with Surgeon post op, gross findings most c/w malignant process. Path pending. NG in today. Pt is passing gas. Mgmt per Surgeon. Current Visit: Yes Status: Acute Priority: High Code(s): K56.609 - UNSP INTESTNL OBST, UNSP TO PARTIAL VERSUS COMPLETE OBST SNOMED Code(s): 553265519 (4) Breast cancer Narrative/Plan: Hx >10 years ago. Current Visit: No Status: Chronic Priority: Medium Code(s): C50.919 - MALIGNANT NEOPLASM OF UNSP SITE OF UNSPECIFIED FEMALE BREAST SNOMED Code(s): 276672792 Plan: Patient is status post bronchoscopy and biopsy with Dr. Reid /. Pathology results positive for malignancy, poorly differentiated adenocarcinoma. Pathologist is sending for additional testing for clarification. We will reques t specimen for somatic NGS testing and PD-L1. Requesting cancer type ID testing. DDS path results, adenocarcinoma. MRI brain and neck pending. Dr. Ratliff would also like US of bilateral breasts done. Pt is frustrated with all the testing. She would like today to rest (she had PICC line placed this AM) Can be done outpt if pt cont to not want to do while inpt. Will not be able to start any treatment for at least 3-4 weeks post op. Pt and family understand.
[2021-06-21] MEDS ORDERED: MVI, ADULT NO.4 WITH VIT K 10 ML, TRACE (CONC-1ML/DOSE) 1 ML in AMINO ACID 5%-D15W+LYTE... IV SCH ×3 (15:00)
--- NOTE | 2021-06-21 15:26 | IR ---
PICC LINE PLACEMENT: HISTORY: Infection requiring long-term antibiotic therapy PROCEDURE: Ultrasound and fluoroscopic guidance of PICC line placement. COMPLICATIONS: None ANESTHESIA: 1. 1% Lidocaine locally. FINDINGS/TECHNIQUE: The procedure was explained to the patient. The risks, complications, benefits and alternatives were discussed and any questions were answered. Informed consent was obtained. The patient was placed supine on the fluoroscopic table and prepped and draped in the usual sterile fash ion. Utilizing a 21 gauge needle and sonographic and fluoroscopic guidance, access in the left basi lic vein was achieved and there is placement of a 0.018 guidewire. The vein is patent. A 4-F sheath was placed over the guidewire. The guidewire and dilator were removed and a 4-F. PICC line was plac ed through the sheath with the tip at the level of the SVC. The sheath was removed, the catheter was flushed and sutured into position. The patient was stable throughout the procedure and remained sta ble upon discharge from the Department of Radiology. The vein puncture was patent under ultrasound. A pelaez scale image was obtained to document patency of the vein punctured. All elements of the maximal barrier technique were utilized. FLUOROSCOPY TIME: 0.1 minutes and one image submitted IMPRESSION: Successful PICC line placement under ultrasound and fluoroscopic guidance.
[2021-06-21] MEDS: POTASSIUM CHLORIDE 10 MEQ in WATER FOR INJECTION 1 100ML.BAG IVPB SCH ×2 (15:36→17:25)
[2021-06-21] MEDS: LEVOFLOXACIN 500MG-D5W PMX 500 MG in DEXTROSE/WATER 1 100ML.BAG IVPB SCH (15:36)
--- NOTE | 2021-06-21 15:51 | P.PN ---
Subjective Progress Note Date: 06/20/21 No complaints today, no BM she did have flatus Objective - Vital Signs Vital signs: Vital Signs Temp 98.0 F 06/21/21 12:00 Pulse 85 06/21/21 08:00 Resp 18 06/21/21 12:00 BP 180/73 06/21/21 12:00 Pulse Ox 96 06/21/21 12:00 Intake & Output 06/20/21 06/21/21 06/21/21 18:59 06:59 18:59 Weight 58.967 kg Other: Voiding Method Bedside Commode Bedside Commode Bedside Commode # Voids 1 1 - Constitutional General appearance: Present: cooperative - Cardiovascular Rhythm: regular - Gastrointestinal Gastrointestinal Comment(s): s/nt/nd - Labs CBC & Chem 7: 06/20/21 06:37 06/21/21 07:58 Labs: Abnormal Lab Results - Last 24 Hours (Table) 06/21/21 Range/Units 07:58 BUN 29 H (7-17) mg/dL Glucose 108 H (74-99) mg/dL AST 64 H (14-36) U/L ALT 36 H (4-34) U/L Alkaline Phosphatase 37 L (38-126) U/L Total Protein 5.3 L (6.3-8.2) g/dL Albumin 2.6 L (3.5-5.0) g/dL Assessment and Plan Assessment: S/P exlap SBR Plan: Clamp NGT today, will DC if she tolerates. Awaiting Picc so we can start TPN. Patient was encouraged to use IS and to get out of bed and into chair. PT/OT eval and treatment
[2021-06-21] MEDS ORDERED: FAT EMULSION 20% 500 ML in EMPTY BAG 1 BAG IV SCH (16:00)
[2021-06-21 16:43] LABS: Glucose,Whole Blood 115 mg/dL (75-99)
--- NOTE | 2021-06-21 17:29 | P.PN ---
Subjective Progress Note Date: 06/21/21 Patient seen and examined at bedside. He did have PICC line inserted today. Denies significant abdominal pain. States she's been having significant amount of flatus. NG tube has been clamped all day without any significant nausea. Objective - Vital Signs Vital signs: Vital Signs Temp 98.0 F 06/21/21 12:00 Pulse 85 06/21/21 08:00 Resp 18 06/21/21 12:00 BP 180/73 06/21/21 12:00 Pulse Ox 96 06/21/21 12:00 Intake & Output 06/20/21 06/21/21 06/21/21 18:59 06:59 18:59 Weight 58.967 kg Other: Voiding Method Bedside Commode Bedside Commode Bedside Commode # Voids 1 1 - Constitutional General appearance: Present: cooperative, no acute distress - Gastrointestinal Gastrointestinal Comment(s): Soft, nontender, nondistended, no rebound, guarding, midline incision with surgical dressing in place - Musculoskeletal Musculoskeletal: Present: generalized weakness - Labs CBC & Chem 7: 06/20/21 06:37 06/21/21 07:58 Labs: Abnormal Lab Results - Last 24 Hours (Table) 06/21/21 06/21/21 Range/Units 07:58 16:41 BUN 29 H (7-17) mg/dL Glucose 108 H (74-99) mg/dL POC Glucose (mg/dL) 115 H (75-99) mg/dL AST 64 H (14-36) U/L ALT 36 H (4-34) U/L Alkaline Phosphatase 37 L (38-126) U/L Total Protein 5.3 L (6.3-8.2) g/dL Albumin 2.6 L (3.5-5.0) g/dL Assessment and Plan Plan: 75-year-old female with Metastatic adenocarcinoma, postoperative day #4 from exploratory laparotomy small bowel resection secondary to obstruction - Patient beginning to have bowel function. We'll remove nasogastric tube and begin the patient on clear liquid diet - PICC line placed, continue TPN for now - Case discussed with patient and patient's daughter at bedside - Pain control - Oncology recommendations
[2021-06-21] MEDS: ENOXAPARIN 40 MG/0.4 ML SYRINGE SQ SCH (18:55)
[2021-06-21] MEDS: GABAPENTIN 400 MG CAP PO SCH (20:51)
[2021-06-22] LABS: Glucose,Whole Blood 122 mg/dL (75-99)
[2021-06-22] MEDS: MORPHINE SULFATE 4 MG/ML SYRINGE IV PRN ×7 (00:52→21:11)
[2021-06-22] MEDS: ENALAPRILAT 1.25 MG/ML 1 ML VIAL IVP SCH ×3 (04:56→17:59)
[2021-06-22] MEDS: hydrALAZINE HCL 20 MG/ML 1 ML VIAL IVP SCH ×5 (04:56→21:12)
[2021-06-22 05:59] LABS: Basophils % (A) 0 %; Eosinophils % (A) 0 %; HGB 13.2 gm/dL (11.4-16.0); Lymphocytes # (A) 0.3 k/uL (1.0-4.8); Lymphocytes % (A) 2 %; MCH 32.7 pg (25.0-35.0); MCV 99.2 fL (80.0-100.0); Mean Platelet Volume 6.9; Monocytes # (A) 0.5 k/uL (0-1.0); Monocytes % (A) 3 %; Neutrophils # (A) 14.3 k/uL (1.3-7.7); Neutrophils % (A) 94 %; Platelet Count 286 k/uL (150-450); RBC 4.03 m/uL (3.80-5.40); RDW 14.3 % (11.5-15.5); WBC 15.2 k/uL (3.8-10.6)
[2021-06-22] MEDS: LACTATED RINGERS 1,000 ML IV SCH ×2 (06:02→15:26)
[2021-06-22 06:11] LABS: ALT 37 U/L (4-34); AST 73 U/L (14-36); African American GFR (CKD) >90 (>60 ml/min/1.73 sqM); Albumin 2.4 g/dL (3.5-5.0); Alkaline Phosphatase 33 U/L (38-126); Anion Gap 7 mmol/L; Blood Urea Nitrogen 26 mg/dL (7-17); Calcium 8.6 mg/dL (8.4-10.2); Carbon Dioxide 26 mmol/L (22-30); Chloride 102 mmol/L (98-107); Glucose 147 mg/dL (74-99); Magnesium 2.1 mg/dL (1.6-2.3); Non-African American GFR(CKD) >90 (>60 ml/min/1.73 sqM); Phosphorus 3.3 mg/dL (2.5-4.5); Potassium 3.5 mmol/L (3.5-5.1); Sodium 135 mmol/L (137-145); Total Bilirubin 0.7 mg/dL (0.2-1.3)
[2021-06-22 06:26] LABS: Glucose,Whole Blood 142 mg/dL (75-99)
[2021-06-22] MEDS: FORMOTEROL FUMARATE 20 MCG/2 ML NEBU INHALATION SCH ×2 (07:48→20:23)
[2021-06-22] MEDS: IPRATROPIUM-ALBUTEROL 3 ML NEB INHALATION SCH ×4 (07:49→20:23)
[2021-06-22] MEDS: BUDESONIDE 1 MG/2 ML NEBU INHALATION SCH ×2 (07:49→20:23)
[2021-06-22] MEDS: PRAVASTATIN SODIUM 80 MG TAB PO SCH (08:10)
[2021-06-22] MEDS: LORATADINE 10 MG TAB PO SCH (08:11)
[2021-06-22] MEDS: methylPREDNISolone SOD SUCCI 40 MG/ML 1 ML VIAL IV SCH ×2 (08:11→16:52)
[2021-06-22] MEDS: PANTOPRAZOLE 40 MG/10 ML VIAL IV SCH (08:11)
[2021-06-22] MEDS: METOPROLOL TARTRATE 25 MG TAB PO SCH (08:11)
[2021-06-22] MEDS: ENOXAPARIN 40 MG/0.4 ML SYRINGE SQ SCH (08:11)
[2021-06-22] MEDS: ASPIRIN 81 MG PO SCH (08:12)
[2021-06-22] MEDS: NICOTINE 14MG/24HR PATCH TRANSDERM SCH (09:15)
--- NOTE | 2021-06-22 11:31 | P.PN ---
Subjective Progress Note Date: 06/21/21 This is a pleasant 75-year-old female, Covid vaccinated X 2, hard of hearing, left breast cancer with lumpectomy/radiation, arthritis with past medical history of nicotine dependence-has smoked since she was a teen and is currently at a half pack per day, hiatal hernia presented to the ER with mid epigastric abdominal pain, constipation, nausea, vomiting of dk. brown emesis. Patient reports on last Monday she had [address] Ramirez secondary to gingivitis. Postprocedure she found it very difficult to eat and drink. Sodium 128 to 1:30, BUN ranging from 11-7, creatinine 0.82. Reports she is not passing any flatus ,with no bowel movement since her teeth extraction. Tested negative for Coronavirus. Hypoxic, O2 sat 87% on room air currently high 90s to 100% on 2 L nasal cannula. Denies any chest pain, chest pressure, or shortness of breath. Troponin 0.097, 0.151. Evaluated by cardiology, echo pending. EKG reporting normal sinus rhythm. Chest x-ray pending. CT of abdomen and pelvis reporting new multiple hypodense liver lesions suggestive of metastatic disease measuring up to 4 cm, will require further monitoring/workup outpatient, dilated small bowel with fluid suggestive of new mechanical small bowel obstruction, transition point not identified. LFTs within normal limits with the exception of AST mildly elevated ,50. Lipase 311. Afebrile, normal WBC. UA Negative. H emoglobin 14.7, platelets 289, PT 9.8, INR 0.9. Received IV fluids, antiemetics, morphine and PPI, feeling better. 06/10/2021 no bowel movement, patient reports passing flatus .no further nausea or vomiting .reports abdominal pain improving . NG tube on hold at this time as per surgery .clear liquid diet initiated .maintained on nebulized bronchodilators, nicotine patch , maintaining O2 sats in the 90s on room air.Chest x-ray reporting possible right hilar mass, the patient with history of breast cancer. Evaluated by pulmonary, chest CT ordered. Telemetry sinus rhythm, denies chest pain, palpitations, heparin drip discontinued as per cardiology. 06/11/[address] reported confirmation of large right hilar mass with mediastinal and patient up to the level of the thoracic inlet consistent with primary lung neoplasm, consider small cell carcinoma, metastatic disease to the liver redemonstrated.NPO, scheduled for bronchoscopy with lung biopsy. Fluctuating confusion, easily forgets, difficulty at times recalling past events; couldn't remember what her daughter does for a living. Denies chest pain, palpitations or shortness of breath. Maintaining O2 sats in the 90s on room air. Denies further nausea or vomiting, positive bowel movement today, loose, passing flatus. 06/14/2021 minimal NG tube drainage overnight, passing flatus, no bowel movement. Denies nausea vomiting or abdominal pain. Status post bronchoscopy, pathology, cultures pending. Afebrile, WBC 11.8. Potassium 3.1, renal function stable.Computed tomography scan of brain reported no evidence of metastatic disease. 06/15/2021 chest x-ray from yesterday afternoon reporting right hilar prominence consistent with mass, superimposed interstitial asymmetric edema or pneumonitis. Maintaining O2 sats in the 90s on room air. Afebrile. Potassium 3.2. Bronchoscopy pathology/ cultures pending. Evaluated by oncology with recommendations noted and appreciated. PT evaluation pending. 06/16/2021 MRI of brain and neck/jaw pending. Maintained on full liquid diet, consuming 25% with "full" sensation.denies nausea or vomiting. Denies abdominal pain. Passing flatus. No bowel movement-patient reports chronic constipation. Denies chest pain, palpitations, reports shortness of breath. Maintaining O2 sats in the 90s on room air. Audible congestion. Lung pathology pending. 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 06/17/2021 during the night patient's abdomen became more distended, nausea and vomiting reoccurred, increased abdominal cramping, NG tube reinserted. NPO,scheduled for exploratory laparotomy today. Unable to auscultate bowel sounds today. Pain controlled with current IV pain return. Continues with audible congestion, maintaining O2 sats in the low 90s on room air.Right upper lobe transbronchial biopsy reporting positive for poorly differentiated non- small cell lung cancer/Cytology reporting positive for non-small cell CA with designated 4R adequacy pending cell block. Afebrile, WBC 10.9. Sodium 134, potassium 3.7,renal function stable. 06/18/2021 Yesterday patient underwent exploratory laparotomy for suspected small bowel obstruction reporting significant metastatic disease to the small bowel resulting in obstruction. Family requested surgeon proceed with resection of small bowel. Tolerated procedure well. Currently with NG, small amount of drainage. CA 153 1515 and CA-125 antigen 7667. Reports abdominal pain. Maintaining O2 sats in the 90s on 3 L nasal cannula. Continues on nebulized bronchodilators, IV steroids, Levaquin, nicotine patch. Afebrile, T-max 99.6. 06/21/21 recently returned from PICC line insertion , tolerated procedure well. NG tube clamped , reporting no nausea. Positive abdominal pain, requiring IV pain medication approximately every 4-5 hours. Passing flatus. Expressing hunger.patient and family updated at bedside. CODE STATUS changed to no code, no CPR, no intubation as discussed between patient and PCP. Hospice discussed- patient and family requesting [facility] hospice. Objective - Vital Signs Vital signs: Vital Signs Temp 98.0 F 06/21/21 12:00 Pulse 85 06/21/21 08:00 Resp 18 06/21/21 12:00 BP 180/73 06/21/21 12:00 Pulse Ox 96 06/21/21 12:00 Intake & Output 06/20/21 06/21/21 06/21/21 18:59 06:59 18:59 Weight 58.967 kg Other: Voiding Method Bedside Commode Bedside Commode Bedside Commode # Voids 1 1 - Exam PHYSICAL EXAM: VITAL SIGNS: [As above] GENERAL: Alert and oriented 3,Sitting up in bed HEENT: Conjunctivae normal. eyes normal. 3 teeth recently extracted. NG tube present. NECK: No JVD. No thyroid enlargement. No LNs CARDIOVASCULAR: S1, S2 regular. Systolic murmur RESPIRATION: Breath sounds coarse bilateral rhonchi with right basilar crackles. ABDOMEN: Soft, status post surgery, abdominal dressing dry and intact.hypoac tive Bowel sounds heard. LEGS: No edema. no swelling NERVOUS SYSTEM: Cranial N 2-12 grossly normal. No focal deficits. Strength and sensation grossly intact. Skin: Warm and dry, no rash - Labs CBC & Chem 7: 06/22/21 05:30 06/22/21 05:30 Labs: Abnormal Lab Results - Last 24 Hours (Table) 06/21/21 06/21/21 Range/Units 07:58 16:41 BUN 29 H (7-17) mg/dL Glucose 108 H (74-99) mg/dL POC Glucose (mg/dL) 115 H (75-99) mg/dL AST 64 H (14-36) U/L ALT 36 H (4-34) U/L Alkaline Phosphatase 37 L (38-126) U/L Total Protein 5.3 L (6.3-8.2) g/dL Albumin 2.6 L (3.5-5.0) g/dL Assessment and Plan Assessment: Mechanical ileus, possible small bowel obstruction in a patient with 3 teeth extracted 5 days ago, with Dr. Ramirez-oral surgeon; minimal oral intake post procedure, on antibiotics, NSAIDs and opioids, with nausea, dark brown emesis and mid epigastric pain. Reports no flatus, no bowel movement 4-[address] reports dilated small bowel with fluid suggestive of new mechanical small bowel obstruction, transition point not identified. Status post exploratory laparotomy with small bowel resection secondary to significant metastatic disease of the small bowel resulting in obstruction, pathology pending. Oral surgerical pathology reporting gingiva witih high-grade adenocarcinoma. Mildly elevated lipase Right hilar mass confirmed per chest CT, status post bronchoscopy. Lung and mediastinal Pathology/cytology reporting positive for non-small cell lung CA with possible lymphovasc. invasion Atelectasis, possible pneumonitis Multiple hypodense liver lesions suggestive of metastatic disease To [address], in a patient with history of left breast CA with lumpectomy, radiation Hypovolemic hyponatremia secondary to #1 Hypokalemia, resolved Metabolic encephalopathy secondary to all the above, possible metastatic, brain CT did not report brain metastases, MRI pending Elevated troponins, without chest pain reported, no acute ischemic event as per Cardiology. EF greater than 55% Moderate mitral regurgitation mild pulmonary hypertension COPD with underlying emphysema Nicotine dependence, extensive, [id number] Occasional alcohol use Arthritis Plan: Continue on current medication regime ,monitoring and symptomatic treatment. Patient and family updated. CODE STATUS readdressed with family at bedside , changed to no code, no CPR, no intubation as per patient's request.patient and family requesting [facility]:consulted .Small bowel pathology. pending MRI pending.discharge planning in progress for discharge home with hospice in the next 24-48 hours as discussed with family.Prognosis poor given multiple complex medical issues. The impression and plan of care has been dictated as directed. : I performed a history and examination of this patient, discussed the same with the dictator. I agree with the dictator's note ,documented as a scribe. Any additional findings or plans will be noted.
--- NOTE | 2021-06-22 11:47 | P.DS ---
Providers Date of admission: 06/09/21 07:04 Expected date of discharge: 06/22/21 Attending physician: Michael Church Consults: 06/09/21 09:34 Consult Physician Routine Consulting Provider: Melissa Bennett Consult Reason/Comments: bowel obstr Do you want consulting provider notified?: Yes 06/10/21 11:36 Consult Physician Routine Consulting Provider: Christiano Reid Consult Reason/Comments: abnormal chesy x ray, possible mass Do you want consulting provider notified?: Yes 06/13/21 12:38 Consult Physician Routine Consulting Provider: Jimbo Esquivel Consult Reason/Comments: Metastatic lung cancer Do you want consulting provider notified?: Yes Primary care physician: [facility] Course: Final Diagnoses: Mechanical ileus, small bowel obstruction in a patient with 3 teeth extracted 5 days ago, with Dr. Ramirez-oral surgeon; minimal oral intake post procedure, on antibiotics, NSAIDs and opioids, with nausea, dark brown emesis and mid epigastric pain. Reports no flatus, no bowel movement 4-[address] reports dilated small bowel with fluid suggestive of new mechanical small bowel obstruction, transition point not identified. Status post exploratory laparotomy with small bowel resection secondary to significant metastatic disease of the small bowel resulting in obstruction, pathology pending. Oral surgerical pathology reporting gingiva witih high-grade adenocarcinoma. Mildly elevated lipase Right hilar mass confirmed per chest CT, status post bronchoscopy. Lung and mediastinal Pathology/cytology reporting positive for non-small cell lung CA with possible lymphovasc. invasion Atelectasis, possible pneumonitis Multiple hypodense liver lesions suggestive of metastatic disease To [address], in a patient with history of left breast CA with lumpectomy, radiation Hypovolemic hyponatremia secondary to #1 Hypokalemia, resolved Metabolic encephalopathy secondary to all the above, possible metastatic, brain CT did not report brain metastases, MRI pending Elevated troponins, without chest pain reported, no acute ischemic event as per Cardiology. EF greater than 55% Moderate mitral regurgitation mild pulmonary hypertension COPD with underlying emphysema Nicotine dependence, extensive, [id number] Occasional alcohol use Hospital course:This is a pleasant 75-year-old female, Covid vaccinated X 2, hard of hearing, left breast cancer with lumpectomy/radiation, arthritis with past medical history of nicotine dependence-has smoked since she was a teen and is currently at a half pack per day, hiatal hernia presented to the ER with mid epigastric abdominal pain, constipation, nausea, vomiting of dk. brown emesis. Patient reports on last Monday she had [address] Ramirez secondary to gingivitis. Postprocedure she found it very difficult to eat and drink. Sodium 128 to 1:30, BUN ranging from 11-7, creatinine 0.82. Reports she is not passing any flatus ,with no bowel movement since her teeth extraction. Tested negative for Coronavirus. Hypoxic, O2 sat 87% on room air currently high 90s to 100% on 2 L nasal cannula. Denies any chest pain, chest pressure, or shortness of breath. Troponin 0.097, 0.151. Evaluated by cardiology, echo pending. EKG reporting normal sinus rhythm. Chest x-ray pending. CT of abdomen and pelvis reporting new multiple hypodense liver lesions suggestive of metastatic disease measuring up to 4 cm, will require further monitoring/workup outpatient, dilated small bowel with fluid suggestive of new mechanical small bowel obstruction, transition point not identified. LFTs within normal limits with the exception of AST mildly elevated ,50. Lipase 311. Afebrile, normal WBC. UA Negative. Hemoglobin 14.7, platelets 289, PT 9.8, INR 0.9. Received IV fluids, antiemetics, morphine and PPI, feeling better. 06/10/2021 no bowel movement, patient reports passing flatus .no further nausea or vomiting .reports abdominal pain improving . NG tube on hold at this time as per surgery .clear liquid diet initiated .maintained on nebulized bronchodilators, nicotine patch , maintaining O2 sats in the 90s on room air.Chest x-ray reporting possible right hilar mass, the patient with history of breast cancer. Evaluated by pulmonary, chest CT ordered. Telemetry sinus rhythm, denies chest pain, palpitations, heparin drip discontinued as per cardiology. 06/11/[address] reported confirmation of large right hilar mass with mediastinal and patient up to the level of the thoracic inlet consistent with primary lung neoplasm, consider small cell carcinoma, metastatic disease to the liver redemonstrated.NPO, scheduled for bronchoscopy with lung biopsy. Fluctuating confusion, easily forgets, difficulty at times recalling past events; couldn't remember what her daughter does for a living. Denies chest pain, palpitations or shortness of breath. Maintaining O2 sats in the 90s on room air. Denies further nausea or vomiting, positive bowel movement today, loose, passing flatus. 06/14/2021 minimal NG tube drainage overnight, passing flatus, no bowel movement. Denies nausea vomiting or abdominal pain. Status post bronchoscopy, pathology, cultures pending. Afebrile, WBC 11.8. Potassium 3.1, renal function stable.Computed tomography scan of brain reported no evidence of metastatic disease. 06/15/2021 chest x-ray from yesterday afternoon reporting right hilar prominence consistent with mass, superimposed interstitial asymmetric edema or pneumonitis. Maintaining O2 sats in the 90s on room air. Afebrile. Potassium 3.2. Bronchoscopy pathology/ cultures pending. Evaluated by oncology with recommendations noted and appreciated. PT evaluation pending. 06/16/2021 MRI of brain and neck/jaw pending. Maintained on full liquid diet, consuming 25% with "full" sensation.denies nausea or vomiting. Denies abdominal pain. Passing flatus. No bowel movement-patient reports chronic constipation. Denies chest pain, palpitations, reports shortness of breath. Maintaining O2 sats in the 90s on room air. Audible congestion. Lung pathology pending. 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 06/17/2021 during the night patient's abdomen became more distended, nausea and vomiting reoccurred, increased abdominal cramping, NG tube reinserted. NPO,scheduled for exploratory laparotomy today. Unable to auscultate bowel sounds today. Pain controlled with current IV pain return. Continues with audible congestion, maintaining O2 sats in the low 90s on room air.Right upper lobe transbronchial biopsy reporting positive for poorly differentiated non- small cell lung cancer/Cytology reporting positive for non-small cell CA with designated 4R adequacy pending cell block. Afebrile, WBC 10.9. Sodium 134, potassium 3.7,renal function stable. 06/18/2021 Yesterday patient underwent exploratory laparotomy for suspected small bowel obstruction reporting significant metastatic disease to the small bowel resulting in obstruction. Family requested surgeon proceed with resection of small bowel. Tolerated procedure well. Currently with NG, small amount of drainage. CA 153 1515 and CA-125 antigen 7667. Reports abdominal pain. Maintaining O2 sats in the 90s on 3 L nasal cannula. Continues on nebulized bronchodilators, IV steroids, Levaquin, nicotine patch. Afebrile, T-max 99.6. 06/21/21 recently returned from PICC line insertion , tolerated procedure well. NG tube clamped , reporting no nausea. Positive abdominal pain, requiring IV pain medication approximately every 4-5 hours. Passing flatus. Expressing hunger.patient and family updated at bedside. CODE STATUS changed to no code, no CPR, no intubation as discussed between patient and PCP. Hospice discussed- patient and family requesting [facility]ice. Patient and family have decided to proceed with hospice , declining any further workup including MRI/breasts ultrasound.Patient will be discharged home with family in a stable condition with guarded prognosis with [facility] hospice pending arrangement/confirmation of Hospice and DME. The impression and plan of care has been dictated as directed. : I performed a history and examination of this patient, discussed the same with the dictator. I agree with the dictator's note ,documented as a scribe. Any additional findings or plans will be noted. Patient Condition at Discharge: Stable Plan - Discharge Summary Discharge Rx Participant: No New Discharge Prescriptions: Discontinued Pravastatin Sodium 80 mg PO DAILY Cephalexin [Keflex] 500 mg PO Q12HR No Action Prochlorperazine [Compazine] 5 mg PO TID PRN PRN Reason: Nausea And Vomiting HYDROcodone/IBUPROFEN 7.5-200 [Vicoprofen 7.5-200 mg] 1 tab PO TID PRN PRN Reason: Pain Gabapentin [Neurontin] 400 mg PO HS Cetirizine HCl [Zyrtec] 10 mg PO DAILY Discharge Medication List Cetirizine HCl [Zyrtec] 10 mg PO DAILY 06/08/21 [History] Gabapentin [Neurontin] 400 mg PO HS 06/08/21 [History] HYDROcodone/IBUPROFEN 7.5-200 [Vicoprofen 7.5-200 mg] 1 tab PO TID PRN 06/08/21 [History] Prochlorperazine [Compazine] 5 mg PO TID PRN 06/08/21 [History] Follow up Appointment(s)/Referral(s): Vamsi Ratliff MD [STAFF PHYSICIAN] - 03/08/22 2:45 pm (This appt is at the [address] [place] [address] location (behind [facility])) Anson Sam MD [Primary Care Provider] - As Needed Activity/Diet/Wound Care/Special Instructions: Home with hospice Discharge Disposition: HOME WITH HOSPICE
[2021-06-22] MEDS: POTASSIUM CHLORIDE 10 MEQ in WATER FOR INJECTION 1 100ML.BAG IVPB SCH ×2 (11:48→15:23)
[2021-06-22 12:02] LABS: Glucose,Whole Blood 135 mg/dL (75-99)
--- NOTE | 2021-06-22 13:14 | P.PN ---
Subjective Progress Note Date: 06/22/21 Principal diagnosis: Lung mass, path positive for malignancy In f/u today pt is eating applesauce and drinking fluids. She states still passing gas, no stool. Denies unusual pain or drainage at incision. Objective - Vital Signs Vital signs: Vital Signs Temp 97.8 F 06/22/21 11:45 Pulse 77 06/22/21 11:45 Resp 18 06/22/21 11:45 BP 127/80 06/22/21 11:45 Pulse Ox 95 06/22/21 11:45 Intake & Output 06/21/21 06/22/21 06/22/21 18:59 06:59 18:59 Intake Total 621 240 Balance 621 240 Weight 58.967 kg 58.967 kg Intake: Intake, IV Titration 621 Amount Fat Emulsion 20% 500 ml 126 In Empty Bag 1 bag @ 42 mls/hr IV Mo@1600 BRENDA Rx# :[id number] Lactated Ringers 1,000 ml 375 @ 125 mls/hr IV .Q8H BRENDA Rx#:[id number] Mvi, Adult No.4 with Vit 120 K 10 ml Trace (Conc-1Ml/ Dose) 1 ml In Amino Acid 5%-D15w+Lytes*E* 1,000 ml @ 40 mls/hr IV .BY DURATION BRENDA Rx#: [id number] Oral 240 Other: Voiding Method Bedside Commode Bedside Commode Bedside Commode # Voids 1 0 - Constitutional General appearance: Present: average body habitus, cooperative, no acute distress - EENT Eyes: Present: anicteric sclerae, EOMI ENT: Present: hearing grossly normal - Respiratory Respiratory: bilateral: CTA - Cardiovascular Rhythm: regular Heart sounds: normal: S1, S2 Abnormal Heart Sounds: Absent: systolic murmur, diastolic murmur, rub, S3 Gallop, S4 Gallop, click, other - Gastrointestinal Gastrointestinal Comment(s): midline incision, dressing intact, BS + General gastrointestinal: Present: soft - Neurologic Neurologic: Present: CNII-XII intact - Musculoskeletal Musculoskeletal: Present: generalized weakness, strength equal bilaterally - Psychiatric Psychiatric: Present: A&O x's 3, appropriate affect, intact judgment & insight - Labs CBC & Chem 7: 06/22/21 05:30 06/22/21 05:30 Labs: Abnormal Lab Results - Last 24 Hours (Table) 06/21/21 06/21/21 06/22/21 Range/Units 16:41 23:58 05:30 WBC (3.8-10.6) k/uL Neutrophils # (1.3-7.7) k/uL Lymphocytes # (1.0-4.8) k/uL Sodium 135 L (137-145) mmol/L BUN 26 H (7-17) mg/dL Creatinine 0.51 L (0.52-1.04) mg/dL Glucose 147 H (74-99) mg/dL POC Glucose (mg/dL) 115 H 122 H (75-99) mg/dL AST 73 H (14-36) U/L ALT 37 H (4-34) U/L Alkaline Phosphatase 33 L (38-126) U/L Total Protein 5.0 L (6.3-8.2) g/dL Albumin 2.4 L (3.5-5.0) g/dL 06/22/21 06/22/21 06/22/21 Range/Units 05:30 06:24 11:59 WBC 15.2 H (3.8-10.6) k/uL Neutrophils # 14.3 H (1.3-7.7) k/uL Lymphocytes # 0.3 L (1.0-4.8) k/uL Sodium (137-145) mmol/L BUN (7-17) mg/dL Creatinine (0.52-1.04) mg/dL Glucose (74-99) mg/dL POC Glucose (mg/dL) 142 H 135 H (75-99) mg/dL AST (14-36) U/L ALT (4-34) U/L Alkaline Phosphatase (38-126) U/L Total Protein (6.3-8.2) g/dL Albumin (3.5-5.0) g/dL Assessment and Plan (1) Liver lesion Current Visit: Yes Status: Acute Priority: High Code(s): K76.9 - LIVER DISEASE, UNSPECIFIED SNOMED Code(s): 772503153 (2) Neoplasm of hilus of right lung Current Visit: Yes Status: Acute Priority: High Code(s): D49.1 - NEOPLASM OF UNSPECIFIED BEHAVIOR OF RESPIRATORY SYSTEM SNOMED Code(s): 536231482 (3) Small bowel obstruction Narrative/Plan: S/P diverting ostomy. Case was discussed with Surgeon post op, gross findings most c/w malignant process. Path pending. Mgmt per Surgeon. Current Visit: Yes Status: Acute Priority: High Code(s): K56.609 - UNSP INTESTNL OBST, UNSP TO PARTIAL VERSUS COMPLETE OBST SNOMED Code(s): 707295254 (4) Breast cancer Narrative/Plan: Hx >10 years ago. Breast cancer tumor markers significantly elevated Current Visit: No Status: Chronic Priority: Medium Code(s): C50.919 - MALIGNANT NEOPLASM OF UNSP SITE OF UNSPECIFIED FEMALE BREAST SNOMED Code(s): 935243244 Plan: Patient is status post bronchoscopy and biopsy with Dr. Reid 06/11. Pathology results positive for malignancy, poorly differentiated adenocarcinoma. Pathologist is sending for additional testing for clarification. DDS path res ults, adenocarcinoma. Pt refused US breasts and imaging of brain. She has decided that she wants to go home with hospice. Plans are in place for the same. Pt and family have requested though, they would like to know the results of the cancer type ID testing. Will watch for those results and contact pt and family with that info.
[2021-06-22] MEDS ORDERED: 1: MVI, ADULT NO.4 WITH VIT K 10 ML, TRACE (CONC-1ML/DOSE) 1 ML in AMINO ACID 5%-D15W+LY IV SCH ×3 (15:00)
[2021-06-22] MEDS: LEVOFLOXACIN 500MG-D5W PMX 500 MG in DEXTROSE/WATER 1 100ML.BAG IVPB SCH (17:59)
[2021-06-22 18:15] LABS: Glucose,Whole Blood 113 mg/dL (75-99)
[2021-06-22 20:20] LABS: Glucose,Whole Blood 113 mg/dL (75-99)
[2021-06-23] MEDS: GABAPENTIN 400 MG CAP PO SCH (03:20)
[2021-06-23] MEDS: LACTATED RINGERS 1,000 ML IV SCH ×3 (03:20→12:21)
[2021-06-23] MEDS: METOPROLOL TARTRATE 25 MG TAB PO SCH ×2 (03:20→08:52)
[2021-06-23] MEDS: ENALAPRILAT 1.25 MG/ML 1 ML VIAL IVP SCH ×3 (03:21→13:10)
[2021-06-23] MEDS: hydrALAZINE HCL 20 MG/ML 1 ML VIAL IVP SCH ×4 (03:21→12:21)
[2021-06-23] MEDS: methylPREDNISolone SOD SUCCI 40 MG/ML 1 ML VIAL IV SCH ×2 (03:21→09:00)
[2021-06-23] MEDS: MORPHINE SULFATE 4 MG/ML SYRINGE IV PRN ×3 (03:21→13:10)
[2021-06-23 08:46] LABS: ALT 47 U/L (4-34); AST 116 U/L (14-36); African American GFR (CKD) >90 (>60 ml/min/1.73 sqM); Albumin 2.3 g/dL (3.5-5.0); Alkaline Phosphatase 33 U/L (38-126); Anion Gap 7 mmol/L; Blood Urea Nitrogen 25 mg/dL (7-17); Calcium 8.7 mg/dL (8.4-10.2); Carbon Dioxide 25 mmol/L (22-30); Chloride 101 mmol/L (98-107); Glucose 78 mg/dL (74-99); Magnesium 2.1 mg/dL (1.6-2.3); Non-African American GFR(CKD) >90 (>60 ml/min/1.73 sqM); Phosphorus 3.2 mg/dL (2.5-4.5); Potassium 3.8 mmol/L (3.5-5.1); Sodium 133 mmol/L (137-145); Total Bilirubin 0.6 mg/dL (0.2-1.3); Total Protein 4.8 g/dL (6.3-8.2)
[2021-06-23] MEDS: PRAVASTATIN SODIUM 80 MG TAB PO SCH (08:52)
[2021-06-23] MEDS: LORATADINE 10 MG TAB PO SCH (08:52)
[2021-06-23] MEDS: ASPIRIN 81 MG PO SCH (08:52)
[2021-06-23] MEDS: PANTOPRAZOLE 40 MG/10 ML VIAL IV SCH (08:56)
[2021-06-23] MEDS: ENOXAPARIN 40 MG/0.4 ML SYRINGE SQ SCH (09:01)
[2021-06-23] MEDS: NICOTINE 14MG/24HR PATCH TRANSDERM SCH (09:01)
[2021-06-23] MEDS: IPRATROPIUM-ALBUTEROL 3 ML NEB INHALATION SCH ×2 (09:05→11:59)
[2021-06-23] MEDS: FORMOTEROL FUMARATE 20 MCG/2 ML NEBU INHALATION SCH (09:06)
[2021-06-23] MEDS: BUDESONIDE 1 MG/2 ML NEBU INHALATION SCH (09:06)
[2021-06-23 11:31] VITALS: RESP 16; TEMP 97.9
[2021-06-23 12:11] LABS: Glucose,Whole Blood 95 mg/dL (75-99)
[2021-06-23 12:30] VITALS: BP 109/72; PULSE 94
== END 2021-06-23 14:04 | disposition hospice, home (50) | DRG 329 ==
LOC: EC 16:31 → 6NMEDSUR 20:36 → 3SCARD 06-09 05:04 → OBSVTOIN 06-09 07:04 → 3SCARD 06-09 17:46
PROVIDERS: ADMIT Family Medicine; ATTEND Family Medicine
PROC: 0BBC8ZX Excision of Right Upper Lung Lobe, Via Natural or Artificial Opening Endoscopic, Diagnostic (ICD-10-PCS; 2021-06-11 07:30)
PROC: 0B9C8ZX Drainage of Right Upper Lung Lobe, Via Natural or Artificial Opening Endoscopic, Diagnostic (ICD-10-PCS; 2021-06-11 07:30)
PROC: 07D78ZX Extraction of Thorax Lymphatic, Via Natural or Artificial Opening Endoscopic, Diagnostic (ICD-10-PCS; 2021-06-11 07:30)
PROC: 0D9670Z Drainage of Stomach with Drainage Device, Via Natural or Artificial Opening (ICD-10-PCS; 2021-06-12)
PROC: 0DT80ZZ Resection of Small Intestine, Open Approach (ICD-10-PCS; principal; 2021-06-17 10:15)
PROC: 02HV33Z Insertion of Infusion Device into Superior Vena Cava, Percutaneous Approach (ICD-10-PCS; 2021-06-21)
PROC: 3E0436Z Introduction of Nutritional Substance into Central Vein, Percutaneous Approach (ICD-10-PCS; 2021-06-22)
DX: C78.4 Secondary malignant neoplasm of small intestine (principal); G93.41 Metabolic encephalopathy; J69.0 Pneumonitis due to inhalation of food and vomit; K56.690 Other partial intestinal obstruction; C79.89 Secondary malignant neoplasm of other specified sites; C77.1 Secondary and unspecified malignant neoplasm of intrathoracic lymph nodes; E87.1 Hypo-osmolality and hyponatremia; C78.7 Secondary malignant neoplasm of liver and intrahepatic bile duct; C34.01 Malignant neoplasm of right main bronchus; J98.11 Atelectasis; I27.20 Pulmonary hypertension, unspecified; E86.1 Hypovolemia; J43.9 Emphysema, unspecified; Z20.822 Contact with and (suspected) exposure to COVID-19; I10 Essential (primary) hypertension; R09.02 Hypoxemia; E87.6 Hypokalemia; K44.9 Diaphragmatic hernia without obstruction or gangrene; E78.5 Hyperlipidemia, unspecified; K05.10 Chronic gingivitis, plaque induced; I34.0 Nonrheumatic mitral (valve) insufficiency; H91.90 Unspecified hearing loss, unspecified ear; H93.13 Tinnitus, bilateral; R77.8 Other specified abnormalities of plasma proteins; M19.042 Primary osteoarthritis, left hand; M19.041 Primary osteoarthritis, right hand; F17.210 Nicotine dependence, cigarettes, uncomplicated; Z71.6 Tobacco abuse counseling; Z79.899 Other long term (current) drug therapy; Z85.3 Personal history of malignant neoplasm of breast; Z92.3 Personal history of irradiation; Z90.12 Acquired absence of left breast and nipple; Z86.010 Personal history of colon polyps; Z87.42 Personal history of other diseases of the female genital tract; Z98.818 Other dental procedure status; Z88.0 Allergy status to penicillin; Z80.0 Family history of malignant neoplasm of digestive organs
CPT/HCPCS: 31624; 31625; 31629; 31652; 36415; 36573; 70450; 71045; 71046; 71260; 74018; 74019; 74021; 74177; 80048; 80053; 80061; 81001; 82150; 83690; 83735; 84100; 84132; 84478; 84484; 85025; 85610; 85730; 86300; 86304; 86850; 86900; 86901; 87635; 88108; 88173; 88305; 88309; 88341; 88342; 93005; 93306; 94640; 94760; 99285